=== PATIENT | female | born 1955 | race Two or more races ===

== ENCOUNTER 2022-04-19 13:02 | Outpatient (REF) | payer MEDICAID, SELFPAY ==
--- NOTE | ~2022-04-19 | XR_ITS ---
EXAMINATION: XR THORACIC SPINE XR LUMBAR SPINE CLINICAL INFORMATION: Chronic pain dorsal and lumbar spine. No known injury. COMPARISON: None TECHNIQUE: Thoracic spine is imaged in 3 views. Lumbar spine is imaged in 5 views including oblique projections. There are total of 8 views. FINDINGS: Thoracic spine: There is normal thoracic segmentation with 12 rib-bearing thoracic vertebrae of normal height and normal thoracic kyphosis. Mild levocurvature lower thoracic spine is present. There is no thoracic vertebral compression, spondylolisthesis, destructive process, or paraspinal soft tissue swelling. Multilevel degenerative disc changes are present with mild disc narrowing and mild endplate sclerosis and thoracic vertebral spurring. No erosive change. Lumbar spine: There is normal lumbar segmentation with 5 nonrib-bearing lumbar vertebrae of normal height and normal lumbar lordosis. There are multilevel degenerative disc and degenerative facet changes, greatest L3-L5. There is disc narrowing and endplate sclerosis and variable vertebral spurring. Oblique view show no spondylolysis. No erosive change. There is borderline anterior spondylolisthesis grade 0-1 at L3-L4 and borderline retrolisthesis grade 0-1 at L4-L5. The SI joints and visualized sacrum are unremarkable. XR/XR lumbar spine 4V min IMPRESSION: Thoracic: -Multilevel degenerative disc changes. -No vertebral compression, spondylolisthesis, or destructive process. Lumbar: -Multilevel degenerative disc and degenerative facet changes, greatest L3-L5. -Grade 0-1 spondylolisthesis L3-L4, grade 0-1 retrolisthesis L4-L5. No spondylolysis.
--- NOTE | ~2022-04-19 | XR_ITS ---
EXAMINATION: XR THORACIC SPINE XR LUMBAR SPINE CLINICAL INFORMATION: Chronic pain dorsal and lumbar spine. No known injury. COMPARISON: None TECHNIQUE: Thoracic spine is imaged in 3 views. Lumbar spine is imaged in 5 views including oblique projections. There are total of 8 views. FINDINGS: Thoracic spine: There is normal thoracic segmentation with 12 rib-bearing thoracic vertebrae of normal height and normal thoracic kyphosis. Mild levocurvature lower thoracic spine is present. There is no thoracic vertebral compression, spondylolisthesis, destructive process, or paraspinal soft tissue swelling. Multilevel degenerative disc changes are present with mild disc narrowing and mild endplate sclerosis and thoracic vertebral spurring. No erosive change. Lumbar spine: There is normal lumbar segmentation with 5 nonrib-bearing lumbar vertebrae of normal height and normal lumbar lordosis. There are multilevel degenerative disc and degenerative facet changes, greatest L3-L5. There is disc narrowing and endplate sclerosis and variable vertebral spurring. Oblique view show no spondylolysis. No erosive change. There is borderline anterior spondylolisthesis grade 0-1 at L3-L4 and borderline retrolisthesis grade 0-1 at L4-L5. The SI joints and visualized sacrum are unremarkable. XR/XR thoracic spine 2V IMPRESSION: Thoracic: -Multilevel degenerative disc changes. -No vertebral compression, spondylolisthesis, or destructive process. Lumbar: -Multilevel degenerative disc and degenerative facet changes, greatest L3-L5. -Grade 0-1 spondylolisthesis L3-L4, grade 0-1 retrolisthesis L4-L5. No spondylolysis.
== END 2022-04-19 13:03 | disposition home or self-care (01) ==
LOC: HO.XRAY 13:02
PROVIDERS: PCP Internal Medicine; Visit Provider Internal Medicine
DX: M54.50 Low back pain, unspecified (principal); M54.6 Pain in thoracic spine
CPT/HCPCS: 72070; 72110

== ENCOUNTER 2024-01-14 09:15 | Outpatient (REF) | payer MEDICAID, SELFPAY ==
[2024-01-14 12:01] LABS: Alanine Aminotransferase 12 U/L (0-31); Albumin Level 3.9 g/dL (3.5-5.0); Alkaline Phosphatase 84 U/L (39-117); Anion Gap 7 (12-20); Aspartate Amino Transferase 23 U/L (5-31); Bilirubin Direct 0.2 mg/dL (0.0-0.5); Bilirubin Total 0.5 mg/dL (0.0-1.0); Blood Urea Nitrogen 19 mg/dL (9-16); Calcium 10.2 mg/dL (8.4-10.2); Carbon Dioxide 29 mmol/L (22-29); Chloride 112 mmol/L (96-108); Cholesterol 154 mg/dL (<200); Estimated Glomerular Filt Rate > 60; Glucose Random 75 mg/dL (60-115); HDL Cholesterol 69 mg/dL (>40); LDL Cholesterol Calculated 75 mg/dL (<100); Potassium 4.6 mmol/L (3.3-5.1); Sodium 143 mmol/L (135-145); TSH reflex Free T4 5.75 uIU/mL (0.32-4.0); Total Protein 7.6 g/dL (6.5-8.0); Triglycerides 52 mg/dL (<150); Vitamin D 25-OH Total 13.2 ng/mL (>30)
[2024-01-14 12:14] LABS: Creatinine Urine 141.99 mg/dL; Microalbum/Creatinine Ratio Ur 5.6 ug/mg cr (<30)
[2024-01-14 12:20] LABS: Reflex LDLD? No
[2024-01-14 12:52] LABS: Free T4 (Free Thyroxine) 0.97 ng/dL (0.71-1.85)
== END 2024-01-14 09:16 | disposition home or self-care (01) ==
LOC: HO.HHCL 09:15
PROVIDERS: Visit Provider Internal Medicine
DX: E11.9 Type 2 diabetes mellitus without complications (principal); E78.2 Mixed hyperlipidemia; E03.9 Hypothyroidism, unspecified; K74.3 Primary biliary cirrhosis
CPT/HCPCS: 36415; 80048; 80061; 80076; 82043; 82306; 82570; 84439; 84443

== ENCOUNTER 2024-02-24 13:00 | Outpatient (REF) | payer MEDICAID, SELFPAY ==
[2024-02-24 15:32] LABS: INTERNATIONAL NORM RATIO 1.1 (0.9-1.1); Prothrombin Time 13.1 SEC (11.1-13.3)
[2024-02-24 15:45] LABS: Alanine Aminotransferase 14 U/L (0-31); Albumin Level 3.8 g/dL (3.5-5.0); Alkaline Phosphatase 79 U/L (39-117); Aspartate Amino Transferase 22 U/L (5-31); Bilirubin Direct 0.2 mg/dL (0.0-0.5); Bilirubin Total 0.6 mg/dL (0.0-1.0); Iron 138 mcg/dL (30-160); Percent Iron Saturation 45 % (15-50); Total Iron Binding Capacity 307 mcg/dL (228-428); Total Protein 7.4 g/dL (6.5-8.0); Unsaturated Iron Binding 169 ug/dL
[2024-02-24 15:59] LABS: Ferritin 58 ng/mL (10-250); Vitamin D 25-OH Total 22.3 ng/mL (>30)
[2024-02-24 16:05] LABS: Free T4 (Free Thyroxine) 1.18 ng/dL (0.71-1.85); T4 Thyroxine 9.1 ug/dL (4.5-12.0); TSH reflex Free T4 0.18 uIU/mL (0.32-4.0)
[2024-02-25 10:53] LABS: Triiodothyronine T3 Free 3.1 pg/mL (2.3-4.2); Triiodothyronine T3 Total 124 ng/dL (76-181)
[2024-02-25 12:43] LABS: Thyroglobulin Antibodies 1 IU/mL (< or = 1)
[2024-02-26 09:23] LABS: Mitochondrial Antibodies NEGATIVE (NEGATIVE)
[2024-02-27 05:03] LABS: Beta-Gamma Tocopherol <1.0 mg/L (<=4.3)
[2024-02-27 10:49] LABS: Anti Nuclear Antibody Pattern Nuclear, Homogeneous; Anti Nuclear Antibody Screen POSITIVE (NEGATIVE)
[2024-02-27 22:39] LABS: Vitamin A 24 mcg/dL (38-98)
[2024-02-29 13:08] LABS: Vitamin K1 380 pg/mL (130-1500)
== END 2024-02-24 13:01 | disposition home or self-care (01) ==
LOC: HO.LAB 13:00
PROVIDERS: PCP Internal Medicine; Visit Provider Internal Medicine
DX: K74.3 Primary biliary cirrhosis (principal); K75.4 Autoimmune hepatitis; E03.9 Hypothyroidism, unspecified; Q78.9 Osteochondrodysplasia, unspecified
CPT/HCPCS: 36415; 80076; 82306; 82728; 83540; 84436; 84439; 84443; 84446; 84480; 84481; 84590; 84597; 85610; 86038; 86039; 86381; 86800; 99212

== ENCOUNTER 2024-02-24 13:00 | Outpatient (AMB) | payer MEDICAID, SELFPAY ==
--- NOTE | 2024-02-24 13:27 | MHC.OFFVIS ---
Vital Signs 02/24/24 13:29 Height 5 ft 5.75 in Weight 213 lb 13.574 oz BMI 34.8 BP 136/73 Blood Pressure Location Rt brachial Position Sitting Pulse 60 Pulse Source Pulse Oximeter Intake Visit Reasons: Bilary Choleangitis Intake Note: Pt presents to the office today for biliary choleangitis. Pt states she is feeling well. She states she has gained weight within the past year and isnt sure why. She states she does have issues with constipation. 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 Pt reports getting leg swelling around 4 years ago which led to testing that established the diagnosis of PBC. Was seeing Dr Manish Barraza at [facility]. Also reports getting a biopsy. Per PCP notes: interface hepatitis 3/4 and lobular activity 2/4. However reports progression to cirrhosis in 2021. Based on bx. Current medications: - Azathioprine 50/day - Court 300 TID - Folic acid 1mg - Lactulose 10mg once a day Last EGD in Nov 13 2023 in [facility] - report reviewed - no esophageal varices, but small fundal varices in stomach without red sonja signs. having small varices. Started on carvedilol once a day. Last US also in Nov 2023 in [facility] - no changes, repeat recommended in 6 months. 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 PFSH Surgical History (Updated 02/24/24 @ 13:33 by Jennifer Marie CMA) H/O section Hx of appendectomy Social History (Updated 02/24/24 @ 13:33 by Jennifer Marie CMA) Household Members Other:: sister Housing: House Alcohol intake: current Alcohol intake frequency: a few times a month Patient Tobacco Use Status: Former Tobacco user Review of Systems Const All systems reviewed & are unremarkable except as noted in HPI and below Physical Exam Vital Signs: Last Vital Signs Pulse 60 02/24/24 13:29 BP 136/73 02/24/24 13:29 BMI result Body Mass Index 34.8 NAD Nonicteric Abd soft, nontender, non distended No asterixis Assessment & Plan Assessment & Plan (1) 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 Cont on Azathioprine [address] ALP and aminotransferases normal per most recent labs available from PCP office. Plan: - Cont Azathioprine [address] - Check ADEK - Check dexa - varices: Next EGD due 11/2024. Cont coreg - ? once daily dosing Rxed by prev rehabilitation supervisor. - HCC screening: Next US due 05/2024. - HE - has known splenorenal shunt. Cont lactulose - Follow up 4 months Orders: Orders Ferritin 02/24/24 K74.3 - Primary biliary cirrhosis Liver Panel 02/24/24 K74.3 - Primary biliary cirrhosis Mitochondrial Antibody 02/24/24 K74.3 - Primary biliary cirrhosis Prothrombin Time INR 02/24/24 K74.3 - Primary biliary cirrhosis Vitamin A 02/24/24 K74.3 - Primary biliary cirrhosis Vitamin D 25-OH Total 02/24/24 K74.3 - Primary biliary cirrhosis Vitamin E 02/24/24 K74.3 - Primary biliary cirrhosis Vitamin K1 02/24/24 K74.3 - Primary biliary cirrhosis SANA Reflex Titer and Pattern 02/24/24 K74.3 - Primary biliary cirrhosis IRON PROFILE 02/24/24 K74.3 - Primary biliary cirrhosis XR DEXA axial skeleton 02/24/24 Q78.9 - Osteochondrodysplasia, unspecified Coding Level of Care Code New Pt Level 5 (97430) Diagnoses Primary biliary cholangitis K74.3 Autoimmune hepatitis K75.4 Encounter for colorectal cancer screening Z12.11; Z12.12
[2024-02-24 13:29] VITALS: BP 136/73; PULSE 60; BMI 34.8
== END 2024-02-24 14:22 | disposition home or self-care (01) ==
LOC: HO.HGI 13:00
PROVIDERS: PCP Internal Medicine; Visit Provider Internal Medicine
DX: K74.3 Primary biliary cirrhosis (principal); K75.4 Autoimmune hepatitis; Z12.11 Encounter for screening for malignant neoplasm of colon; Z12.12 Encounter for screening for malignant neoplasm of rectum
CPT/HCPCS: 99214

== ENCOUNTER 2024-04-09 09:45 | Outpatient (REF) | payer MEDICAID, SELFPAY ==
--- NOTE | ~2024-04-09 | MM_ITS ---
EXAMINATION: BONE DENSITOMETRY CLINICAL INDICATION: Primary biliary cirrhosis. COMPARISON: This is the patient's baseline examination. TECHNIQUE: Using a [employer] DXA System (software version: 13.1) manufactured by [employer], dual-energy x-ray absorptiometry was performed of the lumbar spine and left hip. The images are of good technical quality. Summary results are attached. FINDINGS: LEFT FEMUR, NECK: BMD 0.794 g/cm2, Z-score -0.8, T-score -1.8, osteopenia. LEFT FEMUR, TOTAL: BMD 0.842 g/cm2, Z-score -0.7, T-score -1.3, osteopenia. AP SPINE L1-L3 (excluding L4): The data of L1-L4 has been changed to exclude the L4 vertebral body, because degenerative sclerosis at this level may cause overestimation of lumbar spine density. BMD 1.398 g/cm2, Z-score 2.6, T-score 1.9, normal. IDENTIFIED RISK FACTORS: Early menopause, secondary osteoporosis, glucocorticoids, height loss, low calcium intake. HISTORY OF FRACTURE: None listed. MEDICATIONS: Vitamin D. MM/XR DEXA axial skeleton IMPRESSION: 1. DIAGNOSIS: Osteopenia based on the lowest T-score value of -1.8 in the femoral neck applying World Health Organization criteria. 2. 10-YEAR FRACTURE RISK PREDICTION, FRAX: Major osteoporotic fracture (clinical spine, forearm, hip or shoulder) 8.5%. Hip fracture 1.3%. 3. Treatment Recommendations: NOF guidelines recommend consideration for treatment in postmenopausal women and men age 50 and older presenting with the following: -A hip or vertebral (clinical or morphometric) fracture. -T-score less than or equal to -2.5 at the femoral neck or spine after appropriate evaluation to exclude secondary causes. -Low bone mass at the hip or spine and a 10-year fracture probability by FRAX of greater than or equal to 3% for hip fracture or greater than or equal to 20% for major osteoporotic fracture based on the [place] adapted WHO algorithm. 4. Other Recommendations: All treatment decisions require clinical judgment and consideration of individual patient factors, including patient preferences, comorbidities, previous drug use, risk factors not captured in the FRAX model (e.g. frailty, falls, vitamin D deficiency, increased bone turnover, interval significant decline in bone density) and possible under or overestimation of fracture risk by FRAX. Additional medical evaluation for secondary cause of low bone mineral density may be appropriate. FUTURE SCAN RECOMMENDATION: People with diagnosed cases of osteoporosis or at high risk for fracture should have regular bone mineral density tests. For patients eligible for Medicare, routine testing is allowed once every 2 years. The testing frequency can be increased to one year for patients who have rapidly progressing disease, those who are receiving or discontinuing medical therapy to restore bone mass, or have additional risk factors.
== END 2024-04-09 09:46 | disposition home or self-care (01) ==
LOC: HO.MAMMO 09:45
PROVIDERS: PCP Internal Medicine; Visit Provider Internal Medicine
DX: Q78.9 Osteochondrodysplasia, unspecified (principal); K74.3 Primary biliary cirrhosis
CPT/HCPCS: 77080

== ENCOUNTER 2024-04-28 09:22 | Outpatient (REF) | payer MEDICAID, SELFPAY ==
[2024-04-30 08:56] LABS: Mumps Virus IgG Antibody >300.00 AU/mL; Rubeola IgG (Measles) >300.00 AU/mL
[2024-04-30 22:44] LABS: TS Negative Control Passed; TS Panel A 0; TS Panel B 0; TS Positive Control Passed; TSpotTB Negative (Negative)
== END 2024-04-28 09:23 | disposition home or self-care (01) ==
LOC: HO.HHCL 09:22
PROVIDERS: Visit Provider Internal Medicine
DX: Z00.00 Encounter for general adult medical examination without abnormal findings (principal); Z11.1 Encounter for screening for respiratory tuberculosis
CPT/HCPCS: 36415; 86481; 86735; 86762; 86765; 86787

== ENCOUNTER 2024-06-15 14:13 | Outpatient (AMB) | payer MEDICAID, SELFPAY ==
[2024-06-15 14:15] VITALS: BP 105/59; PULSE 66; BMI 33.7
--- NOTE | 2024-06-15 14:15 | MHC.OFFVIS ---
Vital Signs 06/15/24 14:15 Height 5 ft 5 in Weight 202 lb 13.204 oz BMI 33.7 BP 105/59 L Blood Pressure Location Lt brachial Position Sitting Pulse 66 Intake Visit Reasons: 4 month follow up AIH/PBC Intake Note: Clarita presents in the office as a 4 month follow up for AIH and PBC. CC: She has a headache - Lactulose helps with her constipation. Financing Analyst Required: Yes Allergies No Known Allergies Allergy (Verified 06/15/24 14:19) HPI Comments Details: This is a 68 y.o F with known hx of PBC who is here to establish care for AIH/PBC. 02/24/24: Pt reports getting leg swelling around 4 years ago which led to testing that established the diagnosis of PBC. Was seeing Dr Manish Barraza at [facility]. Also reports getting a biopsy. Per PCP notes: interface hepatitis 3/4 and lobular activity 2/4. However reports progression to cirrhosis in 2021. Based on bx. Current medications: - Azathioprine 50/day - [address] TID - Folic acid 1mg - Lactulose 10mg once a day Last EGD in Nov 13 2023 in [facility] - report reviewed - no esophageal varices, but small fundal varices in stomach without red sonja signs. having small varices. Started on carvedilol once a day. Last US also in Nov 2023 in [facility] - no changes, repeat recommended in 6 months. 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 06/15/24: No acute issues. No change in meds. Labs reviewed. Pt aware to reach out to her PCP for endocrine referral for osteopenia. Taking Vit D supplement. 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 Cont on Azathioprine [address] DEXA reviewed and likely has osteopenia 2/2 PBC as well as postmenopausal state. ALP and aminotransferases normal per most recent labs. Plan: - Cont Azathioprine [address] - Vit D supplement refilled - Pt also advised to add OTC calcium supplementation - varices: Next EGD due 11/2024. Cont coreg - once daily dosing Rxed by prev acquisition associate. - HCC screening: US Abd ordered - HE - has known splenorenal shunt. Cont lactulose - Due for colo - can be jeffrey with the EGD see above. - Follow up 3 months - pt to do MELD labs before next appt. Reminder set. Orders: Orders US abdomen complete Today K75.4 - Autoimmune hepatitis Complete Blood Count no Diff Today K75.4 - Autoimmune hepatitis Comprehensive Met. Panel Today K75.4 - Autoimmune hepatitis Prothrombin Time INR Today K75.4 - Autoimmune hepatitis Medications: Changed From ergocalciferol (vitamin D2) 1,250 mcg PO QWEEK To ergocalciferol (vitamin D2) 1,250 mcg PO QWEEK 90 days 13 caps 1RF Coding Level of Care Code Est Pt Level 4 (37471) Diagnoses Primary biliary cholangitis K74.3 Autoimmune hepatitis K75.4 Encounter for colorectal cancer screening Z12.11; Z12.12 Osteopenia M85.80 Hepatic osteodystrophy Q78.9
== END 2024-06-15 14:48 | disposition home or self-care (01) ==
PROVIDERS: PCP Internal Medicine; Visit Provider Internal Medicine
DX: K74.3 Primary biliary cirrhosis (principal); K75.4 Autoimmune hepatitis; Z12.11 Encounter for screening for malignant neoplasm of colon; Z12.12 Encounter for screening for malignant neoplasm of rectum; M85.80 Other specified disorders of bone density and structure, unspecified site; Q78.9 Osteochondrodysplasia, unspecified
CPT/HCPCS: 99214

== ENCOUNTER → 2024-06-15 14:13 | Outpatient (BNVA) | payer MEDICAID, SELFPAY | PROVIDERS: PCP Internal Medicine; Visit Provider Internal Medicine | DX: K74.3 Primary biliary cirrhosis (principal); K59.00 Constipation, unspecified; K75.4 Autoimmune hepatitis; M85.80 Other specified disorders of bone density and structure, unspecified site; Q78.9 Osteochondrodysplasia, unspecified; Z79.899 Other long term (current) drug therapy | CPT/HCPCS: 99212 ==

== ENCOUNTER 2024-07-28 10:04 | Outpatient (REF) | payer MEDICAID, SELFPAY ==
--- NOTE | ~2024-07-28 | XR_ITS ---
EXAMINATION: XR KNEE, LEFT CLINICAL INFORMATION: Chronic left knee pain. COMPARISON: None available. TECHNIQUE: Four views of the left knee. FINDINGS: Moderate medial compartment joint space narrowing. Small tricompartmental marginal osteophytes. No acute fracture or dislocation. No concerning lytic or blastic osseous lesion. No significant joint effusion. XR/XR knee LT 4V IMPRESSION: Moderate medial as well as mild patellofemoral and lateral compartment osteoarthritis. Electronically signed by: Freddie Colindres MD 07/28/2024 11:23 AM EDT
== END 2024-07-28 10:05 | disposition home or self-care (01) ==
LOC: HO.HHCX 10:04
PROVIDERS: Visit Provider Internal Medicine
DX: M25.562 Pain in left knee (principal); G89.29 Other chronic pain
CPT/HCPCS: 73564

== ENCOUNTER 2024-07-31 08:49 | Outpatient (REF) | payer MEDICAID, SELFPAY ==
[2024-07-31 09:34] LABS: Hematocrit 35.5 % (37.0-47.0); Hemoglobin 11.5 g/dl (12.0-16.0); Mean Corpuscular HGB Conc 32.4 g/dl (31.0-35.0); Mean Corpuscular Hemoglobin 32.6 pg (27.0-33.0); Mean Corpuscular Volume 100.6 fL (80.0-98.0); Mean Platelet Volume 9.7 fL (9.4-12.3); Platelet Count 160 X10*3/uL (160-400); Red Blood Count 3.53 X10*6/uL (4.20-5.50); White Blood Count 4.2 X10*3/uL (4.8-10.8)
[2024-07-31 09:38] LABS: Prothrombin Time 11.8 SEC (10.9-12.4)
[2024-07-31 10:12] LABS: Alanine Aminotransferase 17 U/L (0-31); Albumin Level 3.9 g/dL (3.5-5.0); Alkaline Phosphatase 75 U/L (39-117); Anion Gap 7 (12-20); Aspartate Amino Transferase 27 U/L (5-31); Bilirubin Total 0.5 mg/dL (0.0-1.0); Blood Urea Nitrogen 20 mg/dL (9-16); Calcium 9.9 mg/dL (8.4-10.2); Carbon Dioxide 28 mmol/L (22-29); Chloride 111 mmol/L (96-108); Estimated Glomerular Filt Rate > 60; Glucose Random 77 mg/dL (60-115); Potassium 4.4 mmol/L (3.3-5.1); Sodium 142 mmol/L (135-145); Total Protein 7.4 g/dL (6.5-8.0)
[2024-07-31 10:24] LABS: Free T4 (Free Thyroxine) 0.88 ng/dL (0.71-1.85)
[2024-07-31 10:29] LABS: Thyroid Stimulating Hormone 0.54 uIU/mL (0.32-4.0)
[2024-08-01 09:48] LABS: Triiodothyronine T3 Free 2.8 pg/mL (2.3-4.2); Triiodothyronine T3 Total 86 ng/dL (76-181)
== END 2024-07-31 08:50 | disposition home or self-care (01) ==
LOC: HO.LAB 08:49
PROVIDERS: PCP Internal Medicine; Visit Provider Internal Medicine
DX: E03.9 Hypothyroidism, unspecified (principal); K75.4 Autoimmune hepatitis
CPT/HCPCS: 36415; 80053; 84439; 84443; 84480; 84481; 85027; 85610

== ENCOUNTER 2024-11-09 08:04 | Outpatient (REF) | payer MEDICAID, SELFPAY ==
--- NOTE | ~2024-11-09 | US_ITS ---
CLINICAL HISTORY: K75.4 - Autoimmune hepatitis US abdomen complete Comparison: None Findings: The visualized pancreas is normal. The visualized aorta and inferior vena cava are normal caliber. Hepatic size was not measured. Coarse hepatic echotexture. Hepatic surface nodularity cannot be excluded (hepatic surface was not evaluated with a linear probe). There is no intrahepatic bile duct dilatation. The common duct is 5.3 mm in diameter. The gallbladder is normal. There is no sonographic Persaud sign. The main portal vein is antegrade. Incompletely evaluated right kidney due to overlying bowel gas. The right kidney measures at least 8.3 cm in length. Evaluated portion of right kidney is unremarkable. The left kidney is 10.8 cm in length. 12 mm simple left renal cyst. Left kidney is unremarkable. The spleen is normal and measures 8.9 cm in length No ascites. IMPRESSION: Mildly coarse hepatic echotexture may be incidental or due to underlying hepatic disease. Hepatic surface nodularity/cirrhosis cannot be excluded. This document has been electronically signed by: Renetta Lee MD on 11/09/2024 11:03:41
== END 2024-11-09 08:05 | disposition home or self-care (01) ==
LOC: HO.US 08:04
PROVIDERS: PCP Internal Medicine; Visit Provider Internal Medicine
DX: K75.4 Autoimmune hepatitis (principal)
CPT/HCPCS: 76700

== ENCOUNTER → 2024-11-09 08:06 | Outpatient (BNV) | payer MEDICAID, SELFPAY | PROVIDERS: PCP Internal Medicine; Visit Provider Radiology Diagnostic Radiology | DX: K75.4 Autoimmune hepatitis (principal) | CPT/HCPCS: 76700 ==

== ENCOUNTER 2024-11-11 07:57 | Outpatient (REF) | payer MEDICAID, SELFPAY ==
--- NOTE | ~2024-11-11 | US_ITS ---
EXAMINATION: US THYROID CLINICAL INFORMATION: Left upper lobe thyroid nodule COMPARISON: None available. TECHNIQUE: Linear transducer grayscale and color Doppler examination with attention to the region of the thyroid. FINDINGS: SIZE: Measurements of the thyroid lobes and nodules are given in sagittal, anteroposterior and transverse dimensions respectively. Right Thyroid Lobe: 3.2 x 0.9 x 1.0 cm, volume 1.5 mL. Parenchyma: The gland echotexture is heterogeneous. Thyroid vascularity is hypervascular. Left Thyroid Lobe: Not seen with certainty. However it measures 2.1 x 0.6 x 0.7 cm, volume 0.5 mL. Parenchyma: The gland echotexture is heterogeneous. Thyroid vascularity is normal. Isthmus: 0.2 cm in maximum AP dimension. Estimated total number of nodules greater than or equal to 1 cm: None. Search Marketing Analyst nodules are described as follows: NODES: No lymphadenopathy is seen in the tissue surrounding the thyroid gland. US/US thyroid IMPRESSION: Normal size right thyroid lobe with diffuse heterogeneity and increased blood flow but no nodules. The left lobe is not visualized with certainty however there is no nodule seen either. ACR TI-RADS RECOMMENDATION REFERENCE: Ultrasound-guided fine-needle aspiration, followup ultrasound, no further follow up. * TR1 (0 point) and TR2 (2 points): No FNA or follow up. * TR3 (3 points): FNA if more than or equal to 2.5 cm in maximum dimension, followup ultrasound in 1, 3 and 5 years if 1.5 to 2.4 cm in maximum dimension. * TR4 (4-6 points): FNA if more than or equal to 1.5 cm in maximum dimension, followup ultrasound in 1, 2, 3 and 5 years if 1 to 1.4 cm in maximum dimension. * TR5 (more than or equal to 7 points): FNA if more than or equal to 1 cm in maximum dimension, followup ultrasound every year for 5 years if 0.5 to 0.9 cm in maximum dimension. * TR3, TR4 or TR5 nodules that are below the size threshold for followup receive no follow up. Electronically signed by: Lawson De La Garza MD 11/16/2024 12:18 PM [facility]
== END 2024-11-11 07:58 | disposition home or self-care (01) ==
LOC: HO.US 07:57
PROVIDERS: PCP Internal Medicine; Visit Provider Internal Medicine
DX: E04.1 Nontoxic single thyroid nodule (principal)
CPT/HCPCS: 76536

== ENCOUNTER → 2024-11-11 07:59 | Outpatient (BNV) | payer MEDICAID, SELFPAY | PROVIDERS: PCP Internal Medicine; Visit Provider Radiology Diagnostic Radiology | DX: E04.1 Nontoxic single thyroid nodule (principal) | CPT/HCPCS: 76536 ==

== ENCOUNTER 2024-11-18 12:39 | Outpatient (REF) | payer MEDICAID, SELFPAY ==
[2024-11-18 14:04] LABS: Alanine Aminotransferase 20 U/L (0-31); Albumin Level 3.7 g/dL (3.5-5.0); Alkaline Phosphatase 71 U/L (39-117); Aspartate Amino Transferase 28 U/L (5-31); Bilirubin Direct 0.1 mg/dL (0.0-0.5); Bilirubin Total 0.5 mg/dL (0.0-1.0)
== END 2024-11-18 12:40 | disposition home or self-care (01) ==
LOC: HO.LAB 12:39
PROVIDERS: PCP Internal Medicine; Visit Provider Internal Medicine
DX: K74.3 Primary biliary cirrhosis (principal); R42 Dizziness and giddiness; R51.9 Headache, unspecified; M85.80 Other specified disorders of bone density and structure, unspecified site; Q78.9 Osteochondrodysplasia, unspecified; K75.4 Autoimmune hepatitis
CPT/HCPCS: 36415; 80076; 99212

== ENCOUNTER 2024-11-18 12:39 | Outpatient (AMB) | payer MEDICAID, SELFPAY ==
--- NOTE | 2024-11-18 12:41 | A.OFFVIS_ITS ---
Vital Signs 11/18/24 12:49 Height 5 ft 5 in Weight 205 lb 0.478 oz BMI 34.1 BP 123/58 L Blood Pressure Location Lt brachial Position Sitting Pulse 56 Intake Visit Reasons: 3 month follow up AIH/PBC Intake Note: Clarita presents in the office as a 3 month follow up for AIH and PBC. CC: She states that she is feeling so-so she states her liver is feeling okay but she states when she takes the lactulose her stomach gets bloated with gas and she has a hard time to have a BM. She also has headaches every day. She is also complaining of weight gain. 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 02/24/24: Pt reports getting leg swelling around 4 years ago which led to testing that established the diagnosis of PBC. Was seeing Dr Manish Barraza at [facility]. Also reports getting a biopsy. Per PCP notes: interface hepatitis 3/4 and lobular activity 2/4. However reports progression to cirrhosis in 2021. Based on bx. Current medications: - Azathioprine 50/day - [address] TID - Folic acid 1mg - Lactulose 10mg once a day Last EGD in Nov 13 2023 in [facility] - report reviewed - no esophageal varices, but small fundal varices in stomach without red sonja signs. having small varices. Started on carvedilol once a day. Last US also in Nov 2023 in [facility] - no changes, repeat recommended in 6 months. 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 06/15/24: No acute issues. No change in meds. Labs reviewed. Pt aware to reach out to her PCP for endocrine referral for osteopenia. Taking Vit D supplement. 11/18/24: Here for routine follow up. Seen with in person wrinkle chaser Kiet. Reports dizziness and headaches - has sensation of feeling forward. Lasts for a few seconds. Started almost a month ago and occuring may be once a week. Headache is diffuse and not assoc with vision changes or tinnitus. Has not been seen by PCP for this yet. Pt also had parathyroid testing in [facility] and PTH was high. Awaiting to see PCP for this. From liver standpoint, no abd pain, N,V. Ran out of her meds almost 4 days ago and needs refills. Requests to reduce lactulose dose as it causes significant bloating and cramping without any BMs. PFSH Surgical History H/O section Hx of appendectomy Social History Household Members Other:: sister Housing: House Alcohol intake: current Alcohol intake frequency: a few times a month Patient Tobacco Use Status: Former Tobacco user Review of Systems Const All systems reviewed & are unremarkable except as noted in HPI and below Physical Exam Vital Signs: Last Vital Signs Pulse 56 11/18/24 12:49 BP 123/58 L 11/18/24 12:49 BMI result Body Mass Index 34.1 Gen Appear: NAD, well nourished HEENT: No scleral icterus, no bitemporal wasting noted Abd: soft, nontender, nondistended, no shifting dullness to percussion, bowel sounds active Ext: No peripheral edema bilaterally Neuro: A/Ox3, no asterixis Results Reviewed Results Reviewed: US Abd 11/2024 Mildly coarse hepatic echotexture may be incidental or due to underlying hepatic disease. Hepatic surface nodularity/cirrhosis cannot be excluded. Assessment & Plan Assessment & Plan (1) Dizziness: Code(s): R42 - Dizziness and giddiness Category: Medical (2) Headache: Code(s): R51.9 - Headache, unspecified Category: Medical (3) Osteopenia: Code(s): M85.80 - Other specified disorders of bone density and structure, unspecified si te Category: Medical (4) Hepatic osteodystrophy: Code(s): Q78.9 - Osteochondrodysplasia, unspecified Category: Medical (5) Primary biliary cholangitis: Code(s): K74.3 - Primary biliary cirrhosis Category: Medical (6) Autoimmune hepatitis: Code(s): K75.4 - Autoimmune hepatitis Category: Medical Plan 1. New onset headache and lightheadedness Pt advised to call PCP and get evaluated. MRI brain ordered as urgent to r/o underlying mass/ cerebellar issues. 2. 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 Cont on Azathioprine [address] Refills given today. Pt also reminded to call our office at least 1 week in advance to request refill so she is not without meds. Also has cholestasis related osteopenia, however due to ? hyperparathyroidism, reviewed to discuss supplementation with PCP/dealer support technician. Plan: - Recheck liver panel today as pt without meds recently - Cont Azathioprine [address] - varices: Due for EGD but this will be booked after MRI done. Cont coreg - refilled. - HCC screening: US Abd due in 05/2025. - HE - has known splenorenal shunt. Lactulose decreased to once daily. Add rifaximin 550 BID. - Due for colo - can be jeffrey with the EGD see above. - Follow up 6 months Orders: Orders MR head/brain wo/w con Today R42 - Dizziness and giddiness, R51.9 - Headache, unspecified Liver Panel Today K74.3 - Primary biliary cirrhosis Medications: New polyethylene glycol 3350 (Miralax) 17 grams PO ONCE 238 grams 1RF rifaximin 550 mg PO BID 90 days 180 tabs 2RF Changed From folic acid 1 mg PO DAILY To folic acid 1 mg PO DAILY 90 days 90 tabs 2RF From carvedilol 6.25 mg PO BID To carvedilol 6.25 mg PO BID 90 days 180 tabs 2RF From azathioprine 50 mg PO DAILY To azathioprine 50 mg PO DAILY 90 days 90 tabs 2RF From ursodiol PO TID To ursodiol 300 mg PO TID 90 days 270 caps 2RF Coding Level of Care Code Est Pt Level 5 (70103) Complex EM visit Add On G2211 Diagnoses Dizziness R42 Headache R51.9 Osteopenia M85.80 Hepatic osteodystrophy Q78.9 Primary biliary cholangitis K74.3 Autoimmune hepatitis K75.4
[2024-11-18 12:49] VITALS: BP 123/58; PULSE 56; BMI 34.1
== END 2024-11-18 13:15 | disposition home or self-care (01) ==
PROVIDERS: PCP Internal Medicine; Visit Provider Internal Medicine
DX: K74.3 Primary biliary cirrhosis (principal); K75.4 Autoimmune hepatitis; R42 Dizziness and giddiness; R51.9 Headache, unspecified; M85.80 Other specified disorders of bone density and structure, unspecified site; Q78.9 Osteochondrodysplasia, unspecified
CPT/HCPCS: 99214

== ENCOUNTER 2024-11-19 15:09 | Outpatient (REF) | payer MEDICAID, SELFPAY ==
--- NOTE | ~2024-11-19 | MR_ITS ---
CLINICAL HISTORY: R51.9 - Headache, unspecified MR BRAIN WITH AND WITHOUT GADOLINIUM Comparison: None Findings: Restricted diffusion imaging is incomplete. The upper intracranial contents inclusive of the vertex are not included in the field of view. No suspicious signal alteration is identified on concomitant T2 and FLAIR sequences. No acute intracranial hemorrhage, extra-axial fluid collection, hydrocephalus or midline shift. Vascular flow voids are intact. Visualized orbits: No acute abnormalities. No sinus or mastoid fluid. Nonspecific mild ethmoid sinus disease, left greater than right. No focal bone lesion. IMPRESSION: 1. No acute hemorrhage or intracranial mass lesion. 2. No acute infarct or ischemia identified, within the limitations of the study. If additional images are obtained, and I am so notified, an addendum will be issued to this report. 3. Minimal burden of periventricular and subcortical white matter signal alteration. Findings are nonspecific. Differential diagnosis includes but is not limited to microangiopathic gliosis, chronic migraines, remote trauma, remote inflammatory/infectious process or demyelinating process. 4. Nonspecific mild ethmoid sinus disease, left greater than right. This document has been electronically signed by: Nanda Grewal DO on 11/19/2024 18:35:01
[2024-11-19] MEDS: gadobutroL 10 ML VIAL IVPUSH (15:50)
== END 2024-11-19 15:10 | disposition home or self-care (01) ==
LOC: HO.MRI 15:09
PROVIDERS: PCP Internal Medicine; Visit Provider Internal Medicine
DX: R51.9 Headache, unspecified (principal); R42 Dizziness and giddiness
CPT/HCPCS: 70553; A9585

== ENCOUNTER → 2024-11-19 15:18 | Outpatient (BNV) | payer MEDICAID, SELFPAY | PROVIDERS: PCP Internal Medicine; Visit Provider Radiology Diagnostic Radiology | DX: R51.9 Headache, unspecified (principal) | CPT/HCPCS: 70553 ==

== ENCOUNTER 2024-12-10 12:30 | Outpatient (REF) | payer MEDICAID, SELFPAY ==
--- OUTSIDE RECORDS SUMMARY | 2024-12-10 12:33 | XMS_ITS | Encounter Summary ---
Author Organization [employer] Address [address] [facility] [address] 7t [place] [address] Care Team Providers Care Repeater Operator Name Role Phone Susanne Portillo MD Primary Care Provider + Reason for Visit * Reason Onset Date Comments Results 11/16/2024 Encounter Details Date Type Department Care Team ([facility] Contact Info) Description 11/16/2024 Telephone [facility] MEDICINE [address] [place], [place] [phone] Susanne Portillo MD [address] [place] [address] Results Social History Tobacco Use Types Packs/Day Years Used Date Smoking Tobacco: Never Passive Smoke Exposure: Never Smokeless Tobacco: Never Alcohol Use Standard Drinks/Week Comments Never 0 (1 standard drink = 0.6 oz pur e alcohol) Depression Answer Date Recorded Patient Health Questionnaire-9 Score 12 05/15/2024 Patient Health Questionnaire-9 Score 12 05/15/2024 Last PHQ-9: Questionnaire Data Not on file 0 05/15/2024 Housing Stability Answer Date Recorded What is your housing situation today? I have ann marie cuellar 12/27/[address] you li ve. Do you have problems with any of the following? None of the above 12/27/2023 Food Insecurity Answer Date Recorded Within the past 12 months, y ou worried that your food would run out before you got money to buy more: Never True 12/27/2023 Within the past 12 months,th e food you bought just didn't last and you didn't have enough money to get more: Never True Transportation Answer Date Recorded In the past 12 months, has l ack of transportation kept you from medical appts, meetings, work or from getting things needed for daily living? Yes, it has kept me from medical appointments or getting medications. 12/27/2023 Utilities Answer Date Recorded In the past 12 months, has t he electric, gas, oil or water company threatened to shut off services in your home? No 12/27/2023 Depression Answer Date Recorded Patient Health Questionnaire-2 Score 6 05/15/2024 Comments Unknown Sex and Gender Information Value Date Recorded Sex Assigned at Female 09/03/2022 10:35 AM EDT Legal Sex Female 10:35 AM EDT Gender Identity Female 09/03/2022 10:35 AM EDT Sexual Orientation Straight 09/03/2022 10 :35 AM EDT documented as of this encounter Miscellaneous Notes * Telephone Encounter - Paz Winters [place] - 11/16/2024 4:19 PM EST Tc to pt to inform thyroid US is normal. Pt requesting med refill for Imuran 50 mg, will inform PCP. * Telephone Encounter - Paz Winters [place] - 11/16/2024 4:18 PM EST ----- Message from Nurse Liliane Gutierrez sent at 11/16/2024 3:00 PM EST ----- ----- Message ----- From: Judie Rand MD Sent: 11/16/2024 2:58 PM EST To: [facility] Red Team Nurses Please let patient know her thyroid US is normal documented in this encounter Plan of Treatment Not on file documented as of this encounter Visit Diagnoses Not on filedocumented in this encounter Additional Health Concerns Assessment Noted Time PHQ-9 Depression Total Score: 12 024 3:45 PM EDT documented as of this encounter Care Teams Repeater Operator Relationship Specialty Start Date End Date Susanne Portillo MD [address] [place] [phone] PCP - General Family Medicine 06/02/19 documented as of this encounter
--- OUTSIDE RECORDS SUMMARY | 2024-12-10 12:33 | XMS_ITS | Encounter Summary ---
Author Organization [employer] Address 75 [facility] 7t [place] [address] Care Team Providers Care Breeding Technician Name Role Phone Susanne Portillo MD Primary Care Provider + Reason for Visit * Reason Onset Date Comments Med Refill 11/12/2024 Encounter Details Date Type Department Care Team ([facility] st Contact Info) Description 11/12/2024 Refill [facility] MEDICINE [address] [place], [place] [phone] Susanne Portillo MD [address] [place] [address] Primary biliary cholangitis (CMS/HCC) Social History Tobacco Use Types Packs/Day Years [...] AM EDT documented as of this encounter Plan of Treatment Not on file documented as of this encounter Visit Diagnoses Diagnosis Primary biliary cholangitis (CMS/HCC) documented in this encounter Additional Health Concerns Assessment Noted Time PHQ-9 Depression Total Score: 12 024 3:45 PM EDT documented as of this encounter Care Teams Breeding Technician Relationship Specialty Start Date End Date Susanne Portillo MD [address] [place] [phone] PCP - General Family Medicine 06/02/19 documented as of this encounter
--- OUTSIDE RECORDS SUMMARY | 2024-12-10 12:33 | XMS_ITS | Encounter Summary ---
Author Organization [employer] Address [address] [facility] [address] 7[address] [place] [address] Care Team Providers Care Dumper Name Role Phone Susanne Portillo MD Primary Care Provider + Encounter Details Date Type Department Care Team (Late st Contact Info) Description 11/18/2024 Orders Only GENERIC EXTERNAL DATA DEPARTMENT Provider, Generic External Data Social History Tobacco Use Types Packs/Day Years [...] on file documented as of this encounter Procedures Procedure Name Priority Date/Time Associated Diagnosis Comments HEPATIC FUNCTION PANEL Routine 11/18/2024 1:32 PM EST documented in this encounter Results * Hepatic Function Panel (11/18/2024 1:32 PM EST) Bilirubin, Total 0.5 0.0 - 1.0 mg/dL [facility] Bilirubin, Direct 0.1 0.0 - 0.5 mg/dL [facility] Aspartate Amino Transferase 28 5 - 31 U/L [facility] Alanine Aminotransferase 20 0 - 31 U/L [facility] Total Protein 7.0 6.5 - 8.0 g/dL [facility] Albumin Level 3.7 3.5 - 5.0 g/dL [facility] Alkaline Phosphatase 71 39 - 117 U/L [facility] 11/18/2024 1:32 PM EST 11/18/2024 1:32 PM EST us Generic External Data Provider LAB BLOOD ORDERAB LES Final Result [facility] [address] [place] [address] [phone] documented in this encounter Visit Diagnoses Not on filedocumented in this encounter Additional Health Concerns Assessment Noted Time PHQ-9 Depression Total Score: 12 024 3:45 PM EDT documented as of this encounter Care Teams Dumper Relationship Specialty Start Date End Date Susanne Portillo MD [address] [place] [phone] PCP - General Family Medicine 06/02/19 documented as of this encounter
--- OUTSIDE RECORDS SUMMARY | 2024-12-10 12:33 | XMS_ITS | Encounter Summary ---
Author Organization [employer] Address 75 [facility] 7t [place] [address] Care Team Providers Care Dietetic Assistant Name Role Phone Susanne Portillo MD Primary Care Provider + Reason for Visit * Reason Comments Med Refill Encounter Details Date Type Department Care Team ([facility] st Contact Info) Description 04/09/2024 Refill [facility] MEDICINE [address] [place], [place] [phone] Susanne Portillo MD [address] [place], [place] [phone] Type 2 diabetes mellitus without complication, without long-term current use of insulin ([facility]) Social History Tobacco Use Types Packs/Day Years Used Date Smoking Tobacco: Never Smokeless Tobacco: Never Alcohol Use Standard Drinks/Week Comments Never 0 (1 standard drink = 0.6 oz pur e alcohol) Depression Answer Date Recorded Patient Health Questionnaire-9 Score 2 12/27/2023 Patient Health Questionnaire-9 Score 2 12/27/2023 Last PHQ-9: Questionnaire Data Not on file 0 12/27/2023 Housing Stability Answer Date Recorded What is [...] Answer Date Recorded Patient Health Questionnaire-2 Score 2 12/27/2023 Comments Unknown Sex and Gender Information Value Date Recorded Sex Assigned at Female 09/03/2022 10:35 AM EDT Legal Sex Female 10:35 AM EDT Gender Identity Female 09/03/2022 10:35 AM EDT Sexual Orientation Straight 09/03/2022 10 :35 AM EDT documented as of this encounter Plan of Treatment Not on file documented as of this encounter Visit Diagnoses Diagnosis Type 2 diabetes mellitus without complication, without long-term current use of insulin ([facility]) documented in this encounter Additional Health Concerns Assessment Noted Time PHQ-9 Depression Total Score: 2 12/27/19 24 12:05 PM EST documented as of this encounter Care Teams Dietetic Assistant Relationship Specialty Start Date End Date Susanne Portillo MD [address] [place] [phone] PCP - General Family Medicine 06/02/19 documented as of this encounter
--- OUTSIDE RECORDS SUMMARY | 2024-12-10 12:33 | XMS_ITS | Encounter Summary ---
Author Organization [employer] Address 75 [facility] 7t [place] [address] Care Team Providers Care Fluid Power Mechanic Name Role Phone Susanne Portillo MD Primary Care Provider + Reason for Visit * Reason Onset Date Comments Stable Lab Letter 11/17/2024 Encounter Details Date Type Department Care Team ([facility] st Contact Info) Description 11/17/2024 Telephone [facility] MEDICINE [address] [place], [place] [phone] Susanne Portillo MD [address] [place] [address] Stable Lab Letter Social History Tobacco Use Types Packs/Day Years [...] encounter Miscellaneous Notes * Telephone Encounter - Valerie Salmeron - 11/17/2024 8:16 AM EST Mailed out stable imaging letter to pt. documented in this encounter Plan of Treatment Not on file documented as of this encounter Visit Diagnoses Not on filedocumented in this encounter Additional Health Concerns Assessment Noted Time PHQ-9 Depression Total Score: 12 024 3:45 PM EDT documented as of this encounter Care Teams Fluid Power Mechanic Relationship Specialty Start Date End Date Susanne Portillo MD [address] [place] [phone] PCP - General Family Medicine 06/02/19 documented as of this encounter
--- OUTSIDE RECORDS SUMMARY | 2024-12-10 12:33 | XMS_ITS | Encounter Summary ---
Author Organization [employer] Address 75 [facility] 7t [place] [address] Care Team Providers Care Highway Maintainer Name Role Phone Susanne Portillo MD Primary Care Provider + Reason for Visit * Reason Comments Pre-visit Planning (Unable to reach for PVP screening or LVM) Encounter Details Date Type Department Care Team ([facility] st Contact Info) Description 11/25/2024 Patient Outreach [facility] MEDICINE [address] [place], [place] [phone] Susanne Portillo MD 230 [place] [address] Pre-visit Planning ((Unable to reach for PVP screening or LVM)) Social History Tobacco Use Types Packs/Day Years [...] AM EDT documented as of this encounter Progress Notes * Elana Rodriguez - 11/25/2024 12:03 PM EST CC Elana placed outbound call to patient to complete pre-visit planning. No answer at this time. Patient name and were not confirmed. CC unable to leave a voice message. documented in this encounter Plan of Treatment Not on file documented as of this encounter Visit Diagnoses Not on filedocumented in this encounter Additional Health Concerns Assessment Noted Time PHQ-9 Depression Total Score: 12 024 3:45 PM EDT documented as of this encounter Care Teams Highway Maintainer Relationship Specialty Start Date End Date Susanne Portillo MD [address] [place] [phone] PCP - General Family Medicine 06/02/19 documented as of this encounter
--- OUTSIDE RECORDS SUMMARY | 2024-12-10 12:33 | XMS_ITS | Encounter Summary ---
Author Organization [employer] Address 75 [facility] 7t [place] [address] Care Team Providers Care Resident Care Aide Name Role Phone Susanne Portillo MD Primary Care Provider + Reason for Visit * Reason Onset Date Comments Med Refill 04/09/2024 Encounter Details Date Type Department Care Team ([facility] st Contact Info) Description 04/09/2024 Telephone [facility] MEDICINE [address] [place], [place] [phone] Susanne Portillo MD [address] [place], [place] [phone] Med Refill Social History Tobacco Use Types Packs/Day Years [...] encounter Miscellaneous Notes * Telephone Encounter - Agustina Dey LPN - 04/09/2024 10:57 AM EDT Medication was sent to [facility] #[id number] on 01/21/24 #12 with 1 refill. * Telephone Encounter - Verona Rodriguez - 04/09/2024 10:55 AM EDT TC from pt requesting medication refill. Medications needing refill : ergocalciferol (Vitamin D2) 1.25 MG (28373 UT) capsule To be sent to: [facility] #[id number] [place] [id number] [facility] documented in this encounter Plan of Treatment Not on file documented as of this encounter Visit Diagnoses Not on filedocumented in this encounter Additional Health Concerns Assessment Noted Time PHQ-9 Depression Total Score: 2 12/27/19 24 12:05 PM EST documented as of this encounter Care Teams Resident Care Aide Relationship Specialty Start Date End Date Susanne Portillo MD [address] [place] [phone] PCP - General Family Medicine 06/02/19 documented as of this encounter
--- OUTSIDE RECORDS SUMMARY | 2024-12-10 12:33 | XMS_ITS | Encounter Summary ---
Author Organization [employer] Address [address] [facility] [address] 7t [place] [address] Care Team Providers Care Environmental Engineering Intern Name Role Phone Susanne Portillo MD Primary Care Provider + Encounter Details Date Type Department Care Team (Late st Contact Info) Description 11/19/2024 Orders Only [facility] External Provider, [facility] Social History Tobacco Use Types Packs/Day Years [...] the past 12 months, has t he [employer], [employer], oil or water [employer] threatened to shut off services in your [...] Procedure Name Priority Date/Time Associated Diagnosis Comments MR BRAIN W AND WO CONTRAST Routine 11/19/2024 6:35 PM EST documented in this encounter Results * Mr Brain w/ and w/o Contrast (11/19/2024 6:35 PM EST) Anatomical Region Laterality Modality Brain Magnetic Resonan ce 11/19/2024 6:35 PM EST Narrative 11/19/2024 6:37 PM EST ? [facility] ?[address] ?[place] [address] ? Magnetic Resonance Report ? Signed ? Patient: Clarita Forde ?MR ?? #: [id number] ? : 1955 ?Acct:[id number] ? Age/Sex: 69 / F ?ADM Date: 11/19/24 ? Loc: HO.MRI ? Attending Dr: Edyta Rueda MD ? Ordering Physician: Edyta Rueda MD ?? Date of Service: 11/19/24 ?? Procedure(s): MR head/brain wo/w con ?? Accession Number(s): [id number] ? cc: Susanne Portillo MD; Edyta Rueda MD ? CLINICAL HISTORY: R51.9 - Headache, unspecified ? MR BRAIN WITH AND WITHOUT GADOLINIUM ? Comparison: None ? Findings: ?? Restricted diffusion imaging is incomplete. The upper intracranial ?? contents inclusive of the vertex are not included in the field of view. No ?? suspicious signal alteration is identified on concomitant T2 and FLAIR ?? sequences. ?? No acute intracranial hemorrhage, extra-axial fluid collection, ?? hydrocephalus or midline shift. ?? Vascular flow voids are intact. ? Visualized orbits: No acute abnormalities. ?? No sinus or mastoid fluid. Nonspecific mild ethmoid sinus disease, left ?? greater than right. ?? No focal bone lesion. ? IMPRESSION: ?? 1. No acute hemorrhage or intracranial mass lesion. ?? 2. No acute infarct or ischemia identified, within the limitations of the ?? study. If additional images are obtained, and I am so notified, an ?? addendum will be issued to this report. ?? 3. Minimal burden of periventricular and subcortical white matter signal ?? alteration. Findings are nonspecific. Differential diagnosis includes but ?? is not limited to microangiopathic gliosis, chronic migraines, remote ?? trauma, remote inflammatory/infectious process or demyelinating process. ?? 4. Nonspecific mild ethmoid sinus disease, left greater than right. ? This document has been electronically signed by: Nanda Grewal, DO on ?? 11/19/2024 18:35:01 ? Dictated By: ?Nanda Grewal MD ? Signed By: ?<Electronically signed by Nanda Grewal MD in OV> ?11/19/24 1836 ? DD/ 1835 ? TD/TT: 11/19/24 1835 ? Diesel Service Apprentice: ? Procedure Note Donfransiscoter, Image - 11/19/2024 [place] [address] Magnetic Resonance Report Signed Patient: Clarita Forde MMR #: [id number] : 6Acct:[id number] Age/Sex: 69 / FADM Date: 11/19/24 Loc: HO.MRI Attending Dr: Edyta Rueda MD Ordering Physician: Edyta Rueda MD Date of Service: 11/19/24 Procedure(s): MR head/brain wo/w con Accession Number(s): [id number] cc: Susanne Portillo MD; Edyta Rueda MD CLINICAL HISTORY: R51.9 - Headache, unspecified MR BRAIN WITH AND WITHOUT GADOLINIUM Comparison: None Findings: Restricted diffusion imaging is incomplete. The upper intracranial contents inclusive of the vertex are not included in the field of view. No suspicious signal alteration is identified on concomitant T2 and FLAIR sequences. No acute intracranial hemorrhage, extra-axial fluid collection, hydrocephalus or midline shift. Vascular flow voids are intact. Visualized orbits: No acute abnormalities. No sinus or mastoid fluid. Nonspecific mild ethmoid sinus disease, left greater than right. No focal bone lesion. IMPRESSION: 1. No acute hemorrhage or intracranial mass lesion. 2. No acute infarct or ischemia identified, within the limitations of the study. If additional images are obtained, and I am so notified, an addendum will be issued to this report. 3. Minimal burden of periventricular and subcortical white matter signal alteration. Findings are nonspecific. Differential diagnosis includes but is not limited to microangiopathic gliosis, chronic migraines, remote trauma, remote inflammatory/infectious process or demyelinating process. 4. Nonspecific mild ethmoid sinus disease, left greater than right. This document has been electronically signed by: Nanda Grewal DO on 11/19/2024 18:35:01 Dictated By: Nanda Grewal MD Signed By: <Electronically signed by Nanda Grewal MD in OV> 11/19/241835 DD/ 34 TD/TT: 11/19/241834 Diesel Service Apprentice: [facility] External Provider IMG MRI PROCEDURES Final Result documented in this encounter Visit Diagnoses Not on filedocumented in this encounter Additional Health Concerns Assessment Noted Time PHQ-9 Depression Total Score: 12 024 3:45 PM EDT documented as of this encounter Care Teams Environmental Engineering Intern Relationship Specialty Start Date End Date Susanne Portillo MD [address] [place] [phone] PCP - General Family Medicine 06/02/19 documented as of this encounter
--- OUTSIDE RECORDS SUMMARY | 2024-12-10 12:33 | XMS_ITS | Encounter Summary ---
Author Organization [employer] Address [address] [facility] [address] 7t [place] [address] Care Team Providers Care Extractor And Wringer Operator Name Role Phone Susanne Portillo MD Primary Care Provider + Encounter Details Date Type Department Care Team (Latest Contact Info) Description 12/08/2024 Travel Social History Tobacco Use Types Packs/Day Years [...] documented as of this encounter Care Teams Extractor And Wringer Operator Relationship Specialty Start Date End Date Susanne Portillo MD [address] [place] [address] PCP - General Family Medicine 06/02/19 documented as of this encounter
--- OUTSIDE RECORDS SUMMARY | 2024-12-10 12:33 | XMS_ITS | Encounter Summary ---
Author Organization [employer] Address [address] [facility] [address] 7[address] [place] [address] Care Team Providers Care Setter Automatic Spinning Lathe Name Role Phone Susanne Portillo MD Primary Care Provider + Reason for Visit * Reason Onset Date Comments Chart Prep 12/08/2024 Encounter Details Date Type Department Care Team ([facility] st Contact Info) Description 12/08/2024 Telephone [facility] MEDICINE 230 [place], [place] [phone] Stacey Ochoa MA Chart Prep Social History Tobacco Use Types Packs/Day Years [...] encounter Miscellaneous Notes * Telephone Encounter - Stacey Ochoa MA - 12/08/2024 8:43 AM EST Chart Prep Labs: done Images: not done Vaccines due: yes Referrals: Booked appts for gastro on 05/17/2025 , had an appt booked for podiatry on 07/21/2024. Screenings: colonoscopy , mammogram , Foot Exam Overdue care gaps: A1C, Glucose, PHQ-9, ANDREINA-7 documented in this encounter Plan of Treatment Not on file documented as of this encounter Visit Diagnoses Not on filedocumented in this encounter Additional Health Concerns Assessment Noted Time PHQ-9 Depression Total Score: 12 024 3:45 PM EDT documented as of this encounter Care Teams Setter Automatic Spinning Lathe Relationship Specialty Start Date End Date Susanne Portillo MD [address] [place] [phone] PCP - General Family Medicine 06/02/19 documented as of this encounter
--- OUTSIDE RECORDS SUMMARY | 2024-12-10 12:33 | XMS_ITS | Encounter Summary ---
Author Organization [employer] Address 75 [facility] 7t [place] [address] Care Team Providers Care Copy Center Specialist Name Role Phone Susanne Portillo MD Primary Care Provider + Reason for Visit * Reason Onset Date Comments Med Refill 07/21/2024 Encounter Details Date Type Department Care Team ([facility] st Contact Info) Description 07/21/2024 Refill [facility] MEDICINE [address] [place], [place] [phone] Susanne Portillo MD [address] [place] [address] Social History Tobacco Use Types Packs/Day Years [...] documented as of this encounter Care Teams Copy Center Specialist Relationship Specialty Start Date End Date Susanne Portillo MD [address] [place] [address] PCP - General Family Medicine 06/02/19 documented as of this encounter
--- OUTSIDE RECORDS SUMMARY | 2024-12-10 12:33 | XMS_ITS | Encounter Summary ---
Author Organization [employer] Address [address] [place] [address] Care Team Providers Care Furniture Polisher Name Role Phone Susanne Portillo MD Primary Care Provider + Encounter Details Date Type Department Care Team ([facility] st Contact Info) Description 05/04/2024 Telephone [facility] [address] [place] [address] Susanne Portillo MD [address] [place], [place] [phone] Social History Tobacco Use Types Packs/Day Years [...] encounter Miscellaneous Notes * Telephone Encounter - Verona Rodriguez - 05/04/2024 10:46 AM EDT Tc from with ab requesting a call back regarding a cpap script they received. States needs chart note and to why pt had to get sleep studies done. Please call phone # [phone] for clarification. documented in this encounter Plan of Treatment Not on file documented as of this encounter Visit Diagnoses Not on filedocumented in this encounter Additional Health Concerns Assessment Noted Time PHQ-9 Depression Total Score: 2 12/27/19 24 12:05 PM EST documented as of this encounter Care Teams Furniture Polisher Relationship Specialty Start Date End Date Susanne Portillo MD [address] [place] [id number] PCP - General Family Medicine 06/02/19 documented as of this encounter
--- OUTSIDE RECORDS SUMMARY | 2024-12-10 12:33 | XMS_ITS | Clinical Summary ---
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 ursodiol (Actigall) 300 MG capsuleIndicat ions:Primary biliary cholangitis (CMS/HCC) Take 1 capsule (300 mg) by mouth 3 times daily. 270 capsule 3 12/27/19 24 025 Active carvedilol (Coreg) 6.25 MG tablet Take 1 tablet (6.25 mg) by mouth with breakfast and with evening meal. 180 tablet 3 12/27/19 24 025 Active FLUoxetine (PROzac) 20 MG capsule Take 1 capsule (20 mg) by mouth in the morning. 90 capsule 3 12/27/19 24 025 Active folic acid (Folvite) 1 MG tablet Take 1 tablet (1,000 mcg) by mouth in the morning. 90 tablet 3 12/27/19 24 025 Active atorvastatin (Lipitor) 20 MG tablet Take 1 tablet (20 mg) by mouth in the morning. 90 tablet 3 12/27/19 24 025 Active glucose blood test strip Use as instructed 100 each 12 01/24/20 Active Lancets Misc. kit 1 each in the morning. 50 kit 11 01/24/20 24 025 Active FreeStyle lancets USE ONE DIRECTED TO CHECK BLOOD SUGAR IN THE MORNING 01/24/20 Active Calcium Carb-Cholecalc iferol (Calcium 600+D3) 600-10 MG-MCG tablet Take 1 tablet by mouth Once per day. 90 tablet 3 06/12/20 24 025 Active metFORMIN (Glucophage) 850 MG tabletIndicati ons:Type 2 diabetes mellitus without complication, without long-term current use of insulin (CMS/HCC) TAKE 1 TABLET BY MOUTH TWICE DAILY WITH THE MORNING AND EVENING MEAL 180 tablet 3 06/12/20 24 Active azaTHIOprine (Imuran) 50 MG tabletIndicati ons:Primary biliary cholangitis (CMS/HCC) TAKE 1 TABLET BY MOUTH EVERY DAY 90 tablet 10/05/20 24 Active levothyroxine (Synthroid, Levoxyl) 100 MCG tablet TAKE 1 TABLET(100 MCG) BY MOUTH BEFORE BREAKFAST 90 tablet 1 10/27/20 24 Active lactulose (Chronulac) 10 GM/15ML solution Take 22.5 mL (15 g) by mouth Once per day. 2024 mL 3 11/09/19 25 026 Active rifAXIMin (Xifaxan) 550 MG tablet Take 550 mg by mouth 2 times daily. Active Blood Glucose Monitoring Suppl (FreeStyle Lite) w/Device kit 1 each Once per day. 1 kit 12/08/19 25 026 Active Diclofenac Sodium 1 % gel Apply 1 inch topically if needed in the morning and at bedtime (pain). 60 g 1 12/08/19 25 025 Active Blood Glucose Monitoring Suppl (FreeStyle Lite) w/Device kit 1 each in the morning. 1 kit 01/24/20 24 025 Discontinued(Re order (will not trigger notification to Pharmacy)) erythromycin (Romycin) 5 MG/GM ophthalmic ointmentIndica tions:Conjunct ival Infection Apply Amount per Dose: 0.25 inch (~0.5 cm) per dose. TID for 1 week. 15 g 10/21/20 24 025 Discontinued(Th erapy completed) tobramycin-dex AMETHasone (TobraDex) ophthalmic suspension Administer 1 drop into the right eye 4 times daily. Shake bottle before using. 5 mL 10/22/20 24 025 Discontinued(Th erapy completed) Active Problems Problem Noted Date Diagnosed Date Primary osteoarthritis of both knees 12/08/2024 Assessment & Plan (12/08/2024 1:17 PM EST): Refer to PT, take Tylenol PRN and gave her information to come to acupuncture clinic. Chronic pain of left knee 07/21/2024 Assessment & Plan (07/21/2024 1:47 PM EDT): Acetaminophen PRN Elevate knee apply ice and rest Pain in both feet 07/21/2024 Thyroid nodule 07/21/2024 Recurrent major depressive disorder 05/26/2024 ISABEL (obstructive sleep apnea) 04/26/2024 Overview (04/26/2024): Sleep 04/01/24 [facility] htal. Auto CPAP 8-20 cm H2O Assessment & Plan (12/08/2024 2:45 PM EST): Pt is not tolerating CPAP properly with too much pressure on her face and ? Air blowing out of the mask (air leak?). I spoke with Josefina from [facility] ([place] Office [phone]) who will send Resp Therapist to fu with patient. They may need to monitor O2 overnight and CPAP usage, re evaluate face mask/hose. If she continues w same complaints despite corrective measures, I will consider CPAP at 10 cm instead of auto CPAP to see if she can tolerate it better. Will fu in 1mo, patient will reach out to us if she hasn't been contacted. Daytime somnolence 03/12/2024 Assessment & Plan (03/12/2024 1:35 PM EDT): R/o sleep apnea, order sleep study Chloasma 03/12/2024 Assessment & Plan (03/12/2024 1:35 PM EDT): Advised to use spf daily Will check if pt can tolerate hydroquinone due to LFT's Hypersomnia 03/12/2024 Vitamin D deficiency 01/24/2024 Assessment & Plan (01/24/2024 12:21 PM EDT): Started on Vit D already x 6 m Episodic tension-type headache, not intractable 01/24/2024 Assessment & Plan (01/24/2024 12:21 PM EDT): R/o hypo/hyperglycemia vs ISABEL Counseled re more frequent low calorie/carb meals. Encouraged physical activity as tolerated. FU w/ labs and consider sleep study next month if sx persistent. Exertional dyspnea 01/24/2024 Assessment & Plan (03/12/2024 1:35 PM EDT): R/o asthma. Echo and stress echo are wnl I advised pt to hold on ambulation for 2 wks then restart, continue strengthening training for now Consider cardiology referral after test results Assessment & Plan (01/24/2024 12:22 PM EDT): Could be related to wt gain, r/o asthma Order methacholine test and TSH FU w me with results Obesity (BMI 35.0-39.9 without comorbidity) 12/06 Assessment & Plan (12/27/2023 3:13 PM EST): Discussed re weight reduction options including exercise, life style modifications, diet, referral to critical care specialist. Discussed re lower calorie intake, increase dietary fiber Hyperlipidemia 06/07/2023 Assessment & Plan (01/24/2024 12:20 PM EDT): LDL is at goal, continue Crestor, Recommended moderate amount of exercise and increase consumption of fruit, vegetables, fish and high fiber foods. Should decrease consumption of highly saturated fats or trans fats. Fu LFT's in 6 m Assessment & Plan (12/27/2023 12:46 PM EST): Will cont rosuvastatin 10mg for now -check lipids -f/u next mos Frequent headaches 06/07/2023 Assessment & Plan (03/12/2024 1:35 PM EDT): R/o sleep apnea Chronic thoracic back pain 06/07/2023 Acquired hypothyroidism 06/07/2023 Assessment & Plan (12/08/2024 1:15 PM EST): TSH is at goal, continue Levothyroxine 100 mcg per day. Assessment & Plan (06/12/2024 12:19 PM EDT): Will repeat TFT, previous was slightly abnormal. Will call back prn to adjust Levothyroxine dose. 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 Assessment & Plan (12/08/2024 1:16 PM EST): Followed by GI. Continue Imuran + Ursodiol and avoid constipation. LFTs are normal and stable. Assessment & Plan (12/27/2023 3:20 PM EST): Last LFTs nml, Has liver fibrosis G2/4 (Bx on 2019, [facility]) -cont ursodiol TID + lactulose + Imuran 50mg/d -cont carvedilol 6.25 bid for portal gastropathy bleeding prophylaxis and portal HTN -Refer to w/ GI -f/u w/ me next mos Type 2 diabetes mellitus without complication Assessment & Plan (12/08/2024 1:15 PM EST): Controlled. A1c is at goal. Continue on Metformin once a day. Counseled re more frequent low calorie/carb meals. Encouraged physical activity as tolerated. FU in 3-4 months. Assessment & Plan (06/12/2024 12:18 PM EDT): Controlled. A1c is at goal. Continue on Metformin. Counseled re more frequent low calorie/carb meals. Check fgstk once daily Encouraged physical activity as tolerated. FU in 3 months. Assessment & Plan (03/12/2024 1:35 PM EDT): Controlled. A1c is at goal. Continue on metformin Counseled re more frequent low calorie/carb meals. Check fgstk daily Encouraged physical activity as tolerated. FU in 3 months. Assessment & Plan (01/24/2024 12:20 PM EDT): Controlled. A1c is at goal. Continue on Metformin Counseled re more frequent low calorie/carb meals. Check fgstk daily, I will prescribe glucometer to take fingersticks daily and PRN Sx Encouraged physical activity as tolerated. FU in 3 months. Assessment & Plan (12/27/2023 3:20 PM EST): Controlled. A1c is at goal. -Continue on metformin 850mg bid -Counseled re more frequent low calorie/carb meals. -Check fgstk 1x/ daily. Refr to psychopaedic nurse. -Encouraged physical activity as tolerated. -FU in 1 months. Encounters * This document contains information received from the source organization and may not represent a complete record from that organization. Date Type Department Care Team Description 12/08/2024 11:00 AM EST Office Visit [address] [address] Viki Alfonso MD Chronic low back pain without sciatica, unspecified back pain laterality (Primary Dx); Stress reaction 12/08/2024 10:00 AM EST Office Visit [address] [address] Susanne Portillo MD Type 2 diabetes mellitus without complication, without long-term current use of insulin (CMS/HCC) (Primary Dx); Primary osteoarthritis of both knees; ISABEL (obstructive sleep apnea); Acquired hypothyroidism; Primary biliary cholangitis (CMS/HCC) 12/08/2024 Travel 12/08/2024 [address]phone [address] [place] [address] Stacey Ochoa MA Chart Prep 11/25/2024 Patient Outreach [facility] [address] [place] [address] Susanne Portillo MD Pre-visit Planning ((Unable to reach for PVP screening or LVM)) 11/19/2024 Orders Only [facility] External Provider, [facility] 11/18/2024 Orders Only GENERIC EXTERNAL DATA DEPARTMENT Provider, Generic External Data 11/17/2024 Telephone [facility] [address] [place] [address] Susanne Portillo MD Stable Lab Letter 11/16/2024 Telephone [facility] [address] [place] [phone] Susanne Portillo MD Med Refill 11/16/2024 Telephone [facility] [address] [place] [phone] Susanne Portillo MD Results 11/14/2024 Refill [facility] [address] [place] [phone] Susanne Portillo MD 11/12/2024 Refill [facility] [address] [place] [address] Susanne Portillo MD Primary biliary cholangitis ([facility]) 11/09/2024 Refill [facility] [address] [place] [address] Susanne Portillo MD Type 2 diabetes mellitus without complication, without long-term current use of insulin ([facility]) 11/09/2024 Orders Only [facility] External Provider, [facility] 11/02/2024 1:00 PM EST Office Visit [facility] [address] [place] [address] Dena Ellison, OD Corneal abrasion, right, sequela (Primary Dx) 11/02/2024 Travel 10/29/2024 Telephone [facility] [address] [place] [address] Susanne Portillo MD December10/27/2024 Refill [facility] [address] [place] [address] Susanne Portillo MD 10/26/2024 1:00 PM EST Office Visit [facility] [address] [place] [address] Merritt Northn, OD Iritis of right eye (Primary Dx); Corneal epithelial defect 10/26/2024 Travel 10/22/2024 2:00 PM EST Office Visit [facility] [address] [place] [address] CanMerrittn, OD Corneal epithelial defect (Primary Dx); Iritis of right eye 10/22/2024 Travel 10/21/2024 6:00 PM EST Office Visit [facility] [address] [place] [address] Мария Salas, 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 Acute conjunctivitis of right eye, unspecified acute conjunctivitis type (Primary Dx) 10/21/2024 Travel 10/21/2024 Telephone [facility] [address] [place] [address] Susanne Portillo MD Nurse Triage 10/04/2024 Refill [facility] [address] [place], [place] [phone] Susanne Portillo MD Primary biliary cholangitis (CMS/HCC) from Last 3 Months Immunizations Name Administration Dates Next Due Influenza injectable quadrivalent preservative f ree 12/03/2019 Social History Tobacco Use Types Packs/Day Years Used Date Smoking Tobacco: Never Passive Smoke Exposure: Never Smokeless Tobacco: Never Tobacco Cessation:Counseling Given: Not Answered Alcohol Use Standard Drinks/Week Comments Never 0 [...] Orientation Straight 09/03/2022 10 :35 AM EDT Last Filed Vital Signs Vital Sign Reading Time Taken Comments Blood Pressure 136/76 12/08/2024 9:50 AM EST Pulse 60 12/08/2024 9:50 AM EST Temperature 36.4 ??C (97.5 ??F) 12/08/2024 9:50 AM ES T Respiratory Rate 20 12/08/2024 9:50 AM EST Oxygen Saturation 98% 07/21/2024 1:17 PM EDT Inhaled Oxygen Concentration - - Weight 94 kg (207 lb 4 oz) 12/08/2024 9:50 AM ES T Height 170.2 cm (5' 7 ) 12/08/2024 9:50 AM EST Body Mass Index 32.46 12/08/2024 9:50 AM EST Plan of Treatment Health Maintenance Due Date Last Done Comments CT Colonography 1955 Colonoscopy 1955 Colorectal Cancer Screening 1955 FIT DNA/Cologuard 1955 FIT 1955 FOBT 1955 Sigmoidoscopy 1955 COVID-19 Vaccine (#1) 1961 Diabetes: Foot Exam 1966 Hepatitis C Screening 1974 DTaP/Tdap/Td Vaccines (1 - Tdap) 1975 Hepatitis A Vaccines (1 of 2 - Risk 2-dose series) 1975 Pneumococcal Vaccine: 50+ Years (1 of 2 - PCV) 1975 Zoster Vaccines (1 of 2) 1975 Hepatitis B Vaccines (1 of 3 - Risk 3-dose series) 2016 RSV Patients and Patients Aged 60 years or older (1 - Risk 60-74 years 1-dose series) 2016 Mammogram 06/05/2021 06/05/2019 Influenza Vaccine (#1) 2024 12/03/2019 Depression Monitoring (PHQ-9) 11/15/2024 05/15/2024, 05/15/2024 SDOH Screening 12/27/2024 12/27/2023 Diabetes: Urine Protein Screening 01/13/2025 01/14/2024 Lipid Panel 01/13/2025 01/14/2024, 04/11/2022 Alcohol/Substance Use Screening 01/23/2025 01/24/2024 Depression Screening 05/15/2025 05/15/2024, 05/15/20 Diabetes: Hemoglobin A1C 06/07/2025 025, 12/27/2023, 04/11/2022 Tobacco Screening 12/08/2025 12/08/2024 Eye Exam 01/29/2026 01/30/2024, 01/03, 01/30/2024, Additional history exists HIB Vaccines Aged Out No longer eligi ble based on patient's age to complete this topic HPV Vaccines Aged Out No longer eligi ble based on patient's age to complete this topic IPV Vaccines Aged Out No longer eligi ble based on patient's age to complete this topic Meningococcal Vaccine Aged Out No petra alfredo eligible based on patient's age to complete this topic RSV under 20 months Aged Out No longe r eligible based on patient's age to complete this topic Rotavirus Vaccines Aged Out No longer eligible based on patient's age to complete this topic Procedures Procedure Name Priority Date/Time Associated Diagnosis Comments POCT GLYCATED HEMOGLOBIN, TOTAL Routine 12/08/2024 10:02 AM EST Type 2 diabetes mellitus without complication, without long-term current use of insulin ([facility]) POCT GLUCOSE Routine 12/08/2024 10:02 AM EST Type 2 diabetes mellitus without complication, without long-term current use of insulin ([facility]) MR BRAIN W AND WO CONTRAST Routine 11/19/2024 6:35 PM EST HEPATIC FUNCTION PANEL Routine 11/18/2024 1:32 PM EST US THYROID Routine 11/11/2024 8:10 AM EST Thyroid nodule US ABDOMEN COMPLETE Routine 11/09/2024 11:03 AM EST POCT INFLUENZA A (ID NOW RAPID MOLECULAR) Routine 10/21/2024 7:20 PM EST Acute conjunctivitis of right eye, unspecified acute conjunctivitis type POCT RAPID COVID ANTIGEN Routine 10/21/2024 7:20 PM EST Acute conjunctivitis of right eye, unspecified acute conjunctivitis type POCT INFLUENZA B (ID NOW RAPID MOLECULAR) Routine 10/21/2024 7:20 PM EST Acute conjunctivitis of right eye, unspecified acute conjunctivitis type ALBUMIN, RANDOM URINE W/CREATININE Routine 01/14/2024 9:20 AM EDT Type 2 diabetes mellitus without complication, without long-term current use of insulin ([facility]) LIPID PANEL WITH REFLEX TO DIRECT LDL Routine 01/14/2024 9:18 AM EDT Moderate mixed hyperlipidemia not requiring statin therapy BI MAMMOGRAM SCREENING BILATERAL Routine 06/05/2019 8:24 AM EDT from Last 3 Months or Most Recently Relevant to Health Maintenance Results * (ABNORMAL) POCT HGB A1C (12/08/2024 10:02 AM EST) Hemoglobin A1C 6.1(A) 4.0 - 6.0 % QC Media Lot # [id number] Lot# Expiration Date ,026 Blood 12/08/2024 10:0 2 AM EST Susanne Portillo MD POINT OF CARE TEST ENTER /EDIT ORDERABLES Final Result * POCT Glucose (12/08/2024 10:02 AM EST) Glucose Blood, POC 147 60 - 200 mg/dL QC Media Lot # [id number] Lot# Expiration Date 172,025 Blood Capillary blood specimen / Unknown 12/08/2024 10:02 AM EST Susanne Portillo MD POINT OF CARE TEST ENTER /EDIT ORDERABLES Final Result * Mr Brain w/ and w/o Contrast (11/19/2024 6:35 PM EST) Anatomical Region Laterality Modality Brain Magnetic Resonan ce 11/19/2024 6:35 PM EST Narrative 11/19/2024 6:37 PM EST ? [facility] ?[address] ?[place] [address] ? Magnetic Resonance Report ? Signed ? Patient: Clarita Forde ?MR ?? #: [id number] ? : 1955 ?Acct:[id number] ? Age/Sex: 69 / F ?ADM Date: 11/19/24 ? Loc: HO.MRI ? Attending Dr: Edyta Rueda MD ? Ordering Physician: Edyta Rueda MD ?? Date of Service: 11/19/24 ?? Procedure(s): MR head/brain wo/w con ?? Accession Number(s): [id number] ? cc: Susanen Portillo MD; Edyta Rueda MD ? CLINICAL [...] MD in OV> ?11/19/24 1836 ? DD/ 34 ? TD/TT: 11/19/241834 ? Nursing Department Chairperson: ? Procedure Note Eloisa, Image - 11/19/2024 [place] [address] Magnetic Resonance Report Signed Patient: Clarita Forde MMR #: [id number] : 1955cct:[id number] Age/Sex: 69 / FADM Date: 11/19/24 Loc: HO.MRI Attending Dr: Edyta Rueda MD Ordering Physician: Edyta Rueda MD Date of Service: 11/19/24 Procedure(s): MR head/brain wo/w con Accession Number(s): [id number] cc: Susanne Portillo MD; Edyta Rueda MD [...] in OV> 11/19/241835 DD/ 34 TD/TT: 11/19/241834 Nursing Department Chairperson: [facility] External Provider IMG MRI PROCEDURES Final Result * Hepatic Function Panel (11/18/2024 1:32 PM EST) Bilirubin, Total 0.5 0.0 - 1.0 mg/dL [facility] Bilirubin, Direct 0.1 0.0 - 0.5 mg/dL [facility] Aspartate Amino Transferase 28 5 - 31 U/L [facility] Alanine Aminotransferase 20 0 - 31 U/L [facility] Total Protein 7.0 6.5 - 8.0 g/dL [facility] Albumin Level 3.7 3.5 - 5.0 g/dL [facility] Alkaline Phosphatase 71 39 - 117 U/L [facility] 11/18/2024 1:32 PM EST 11/18/2024 1:32 PM EST us Generic External Data Provider LAB BLOOD ORDERAB LES Final Result [facility] [address] [place] [phone] * US Thyroid (11/11/2024 8:10 AM EST) Anatomical Region Laterality Modality Head, Neck Ultrasound 11/11/2024 8:10 AM EST Narrative 11/16/2024 12:21 PM EST ? [facility] ?[address] ?[place] [phone] ? Ultrasound Report ? Signed ? Patient: Clarita Forde ?MR ?? #: [id number] ? : 1955 ?Acct:[id number] ? Age/Sex: 69 / F ?ADM Date: 11/11/24 ? Loc: HO.US ? Attending Dr: Judie Rand MD ? Ordering Physician: Judie Slaughter MD ?? Date of Service: 11/11/24 ?? Procedure(s): US thyroid ?? Accession Number(s): [id number] ? cc: Judie Slaughter MD; Susanne Portillo MD ? EXAMINATION: ?? US THYROID ? CLINICAL INFORMATION: ?? Left upper lobe thyroid nodule ? COMPARISON: ?? None available. ? TECHNIQUE: ?? Linear transducer grayscale and color Doppler examination with ?? attention to the region of the thyroid. ? FINDINGS: ? SIZE: Measurements of the thyroid lobes and nodules are given in ?? sagittal, anteroposterior and transverse dimensions respectively. ? Right Thyroid Lobe: 3.2 x 0.9 x 1.0 cm, volume 1.5 mL. ?? Parenchyma: The gland echotexture is heterogeneous. Thyroid vascularity ?? is hypervascular. ? Left Thyroid Lobe: Not seen with certainty. However it measures 2.1 x ?? 0.6 x 0.7 cm, volume 0.5 mL. ?? Parenchyma: The gland echotexture is heterogeneous. Thyroid vascularity ?? is normal. ? Isthmus: 0.2 cm in maximum AP dimension. ? Estimated total number of nodules greater than or equal to 1 cm: None. ?? Behavioral Modification Assistant nodules are described as follows: ? NODES: No lymphadenopathy is seen in the tissue surrounding the thyroid ?? gland. ? US/US thyroid ?? IMPRESSION: ?? Normal size right thyroid lobe with diffuse heterogeneity and increased ?? blood flow but no nodules. ? The left lobe is not visualized with certainty however there is no ?? nodule seen either. ? ACR TI-RADS RECOMMENDATION REFERENCE: ?? Ultrasound-guided fine-needle aspiration, followup ultrasound, no ?? further follow up. ? * TR1 (0 point) and TR2 (2 points): No FNA or follow up. ? * TR3 (3 points): FNA if more than or equal to 2.5 cm in maximum ?? dimension, followup ultrasound in 1, 3 and 5 years if 1.5 to 2.4 cm in ?? maximum dimension. ? * TR4 (4-6 points): FNA if more than or equal to 1.5 cm in maximum ?? dimension, followup ultrasound in 1, 2, 3 and 5 years if 1 to 1.4 cm in ?? maximum dimension. ? * TR5 (more than or equal to 7 points): FNA if more than or equal to 1 ?? cm in maximum dimension, followup ultrasound every year for 5 years if ?? 0.5 to 0.9 cm in maximum dimension. ? * TR3, TR4 or TR5 nodules that are below the size threshold for ?? followup receive no follow up. ? Electronically signed by: ??Lawson De La Garza MD ??11/16/2024 12:18 PM EST RP ? Dictated By: ?Holli,Lawson S MD ? Signed By: ?<Electronically signed by Lawson S MD Holli in OV> ?11/16/24 1218 ? DD/ 0810 ? TD/TT: 11/11/24 0817 ? Nursing Department Chairperson: MSM ? Procedure Note Rajesh Amin - 11/16/[address] [address] Ultrasound Report Signed Patient: Ghada SchwarzClarita mcdonough [facility] #: [id number] : 6Acct:[id number] Age/Sex: 69 / FADM Date: 11/11/24 Loc: HO.US Attending Dr: Judie Rand MD Ordering Physician: Judie Slaughter MD Date of Service: 11/11/24 Procedure(s): US thyroid Accession Number(s): [id number] cc: Judie Slaughter MD; Susanne Portillo MD EXAMINATION: US THYROID CLINICAL INFORMATION: Left upper lobe thyroid nodule COMPARISON: None available. TECHNIQUE: Linear transducer grayscale and color Doppler examination with attention to the region of the thyroid. FINDINGS: SIZE: Measurements of the thyroid lobes and nodules are given in sagittal, anteroposterior and transverse dimensions respectively. Right Thyroid Lobe: 3.2 x 0.9 x 1.0 cm, volume 1.5 mL. Parenchyma: The gland echotexture is heterogeneous. Thyroid vascularity is hypervascular. Left Thyroid Lobe: Not seen with certainty. However it measures 2.1 x 0.6 x 0.7 cm, volume 0.5 mL. Parenchyma: The gland echotexture is heterogeneous. Thyroid vascularity is normal. Isthmus: 0.2 cm in maximum AP dimension. Estimated total number of nodules greater than or equal to 1 cm: None. Behavioral Modification Assistant nodules are described as follows: NODES: No lymphadenopathy is seen in the tissue surrounding the thyroid gland. US/US thyroid IMPRESSION: Normal size right thyroid lobe with diffuse heterogeneity and increased blood flow but no nodules. The left lobe is not visualized with certainty however there is no nodule seen either. ACR TI-RADS RECOMMENDATION REFERENCE: Ultrasound-guided fine-needle aspiration, followup ultrasound, no further follow up. * TR1 (0 point) and TR2 (2 points): No FNA or follow up. * TR3 (3 points): FNA if more than or equal to 2.5 cm in maximum dimension, followup ultrasound in 1, 3 and 5 years if 1.5 to 2.4 cm in maximum dimension. * TR4 (4-6 points): FNA if more than or equal to 1.5 cm in maximum dimension, followup ultrasound in 1, 2, 3 and 5 years if 1 to 1.4 cm in maximum dimension. * TR5 (more than or equal to 7 points): FNA if more than or equal to 1 cm in maximum dimension, followup ultrasound every year for 5 years if 0.5 to 0.9 cm in maximum dimension. * TR3, TR4 or TR5 nodules that are below the size threshold for followup receive no follow up. Electronically signed by: Lawson De La Garza MD 11/16/2024 12:18 PM EST RP Dictated By: Lawson De La Garza MD Signed By: <Electronically signed by Lawson De La Garza MD in OV> 11/16/24 1218 DD/ 0810 TD/TT: 11/11/24 0817 Nursing Department Chairperson: ROBE us Judie Rand MD IMG US PROCEDURES Kalia venancio Result - Final * US Abdomen Complete (11/09/2024 11:03 AM EST) Anatomical Region Laterality Modality Abdomen Ultrasound 11/09/2024 11:0 3 AM EST Narrative 11/09/2024 11:05 AM EST ? [facility] ?[address] ?[place] [address] ? Ultrasound Report ? Signed ? Patient: Ghada Rodriguez Sanchez,Clarita Ebony ?MR ?? #: [id number] ? : 1955 ?Acct:[id number] ? Age/Sex: 69 / F ?ADM Date: 11/09/24 ? Loc: HO.US ? Attending Dr: Edyta Rueda MD ? Ordering Physician: Edyta Rueda MD ?? Date of Service: 11/09/24 ?? Procedure(s): US abdomen complete ?? Accession Number(s): [id number] ? cc: Susanne Portillo MD; Edyta Rueda MD ? CLINICAL HISTORY: K75.4 - Autoimmune hepatitis ? US abdomen complete ? Comparison: None ? Findings: ?? The visualized pancreas is normal. ?? The visualized aorta and inferior vena cava are normal caliber. ? Hepatic size was not measured. Coarse hepatic echotexture. Hepatic surface ?? nodularity cannot be excluded (hepatic surface was not evaluated with a ?? linear probe). ?? There is no intrahepatic bile duct dilatation. ?? The common duct is 5.3 mm in diameter. ?? The gallbladder is normal. There is no sonographic Persaud sign. ?? The main portal vein is antegrade. ? Incompletely evaluated right kidney due to overlying bowel gas. The right ?? kidney measures at least 8.3 cm in length. Evaluated portion of right ?? kidney is unremarkable. ?? The left kidney is 10.8 cm in length. 12 mm simple left renal cyst. Left ?? kidney is unremarkable. ?? The spleen is normal and measures 8.9 cm in length ?? No ascites. ? IMPRESSION: ?? Mildly coarse hepatic echotexture may be incidental or due to underlying ?? hepatic disease. ?? Hepatic surface nodularity/cirrhosis cannot be excluded. ? This document has been electronically signed by: Renetta Lee MD on ?? 11/09/2024 11:03:41 ? Dictated By: ?Renetta Lee MD ? Signed By: ?<Electronically signed by Renetta Lee MD in OV> ? 11/09/24 1104 ? DD/ 1103 ? TD/TT: 11/09/24 1103 ? Nursing Department Chairperson: ? Procedure Note Dongilberto, Image - 11/09/2024 [place] [address] Ultrasound Report Signed Patient: Clarita Forde MMR #: [id number] : 1955cct:[id number] Age/Sex: 69 / FADM Date: 11/09/24 Loc: HO.US Attending Dr: Edyta Rueda MD Ordering Physician: Edyta Rueda MD Date of Service: 11/09/24 Procedure(s): US abdomen complete Accession Number(s): [id number] cc: Susanne Portillo MD; Edyta Rueda MD CLINICAL HISTORY: K75.4 - Autoimmune hepatitis US abdomen complete Comparison: None Findings: The visualized pancreas is normal. The visualized aorta and inferior vena cava are normal caliber. Hepatic size was not measured. Coarse hepatic echotexture. Hepatic surface nodularity cannot be excluded (hepatic surface was not evaluated with a linear probe). There is no intrahepatic bile duct dilatation. The common duct is 5.3 mm in diameter. The gallbladder is normal. There is no sonographic Persaud sign. The main portal vein is antegrade. Incompletely evaluated right kidney due to overlying bowel gas. The right kidney measures at least 8.3 cm in length. Evaluated portion of right kidney is unremarkable. The left kidney is 10.8 cm in length. 12 mm simple left renal cyst. Left kidney is unremarkable. The spleen is normal and measures 8.9 cm in length No ascites. IMPRESSION: Mildly coarse hepatic echotexture may be incidental or due to underlying hepatic disease. Hepatic surface nodularity/cirrhosis cannot be excluded. This document has been electronically signed by: Renetta Lee MD on 11/09/2024 11:03:41 Dictated By: Renetta Lee MD Signed By: <Electronically signed by Renetta Lee MD in OV> 11/09/24 1104 DD/ 1103 TD/TT: 11/09/24 1103 Nursing Department Chairperson: [facility] External Provider IMG US PROCEDURES Edited Result - Final * POCT Rapid Influenza B SAMAYOA ID NOW (10/21/2024 7:20 PM EST) Influenza B Negative Negative, Indeterminate [facility] Swab 10/21/2024 7:20 PM EST Мария Phalen 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 POINT OF CARE TEST ENTER/EDIT ORDERABLES Final Result Performing Organization Address [facility] Co de Phone Number [facility] [address] [place] [phone] * POCT Rapid Influenza A SAMAYOA ID NOW (10/21/2024 7:20 PM EST) Influenza A Negative Negative, Indeterminate [facility] Swab 10/21/2024 7:20 PM EST Мария Phalen 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 POINT OF CARE TEST ENTER/EDIT ORDERABLES Final Result Performing Organization Address [facility] de Phone Number [facility] [address] [place] [phone] * POCT Rapid Covid-19 BinaxNOW (10/21/2024 7:20 PM EST) Rapid COVID Ag Negative [facility] Swab 10/21/2024 7:20 PM EST us Мария Salas 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 POINT OF CARE TEST ENTER/EDIT ORDERABLES Final Result Performing Organization Address [facility] Co de Phone Number [facility] [address] [place] [address] [phone] * Albumin, Random Urine W/Creatinine (01/14/2024 9:20 AM EDT) Creatinine, Urine 141.99 mg/dL [facility] Microalbumin Urine 8.0 mg/L [facility] Microalbum Creatinine Ratio Ur 5.6 <30 ug/mg cr [facility] Comment:Albumin/Creatinine R atio Reference Ranges: Normal: < 30 ug/mg creatinine Microalbuminuria: 30 - 300 ug/mg creatinineClinical Albuminuria: > 300 ug/mg creatinine Urine (Urine, Random) 01/14/2024 9:20 AM EDT 01/14/2024 11:01 AM EDT us Susanne Portillo MD LAB URINE ORDERABLES Fin al Result Performing Organization Address [facility] Co de Phone Number [facility] [address] [place] [phone] * Lipid Panel with Reflex to Direct LDL (01/14/2024 9:18 AM EDT) Triglycerides 52 <150 mg/dL [facility] Comment:Desirable Triglyceri de: less than 150 mg/dLBorderline High Triglyceride 150-199 mg/dLHigh Triglyceride: 200-499 mg/dLVery High Triglyceride: greater than or equal to 5OO mg/dL Cholesterol 154 <200 mg/dL [facility] Comment:Desirable Cholestero l: less than 200 mg/dLBorderline High Cholesterol: 200-239 mg/dLHigh Cholesterol: greater than 239 mg/dL LDL Cholesterol Calculated 75 <100 mg/dL [facility] Comment:Desirable LDL: less than 100 mg/dLNear Optimal/Above Optimal LDL: 110- 129 mg/dLBorderline High LDL: 130-159 mg/dLHigh LDL: 160-189 mg/dLVery High LDL: greater than or equal to 190 mg/dL HDL Cholesterol 69 >40 mg/dL [facility] Comment:Desirable HDL: great er than 40 mg/dL Note: This HDL assay may give artificially low results in patients with liver disease. Blood 01/14/2024 9:18 AM EDT 01/14/2024 11:06 AM EDT us Susanne Portillo MD LAB BLOOD ORDERABLES Fin al Result [facility] [address] [place] [phone] * DIGITAL BILATERAL SCREEN 1 (06/05/2019 8:24 AM EDT) Anatomical Region Laterality Modality Breast Bilateral Mammography 06/05/2019 8:24 AM EDT Narrative 06/05/2019 8:25 AM EDT Refer to the Notes tab for result details [facility] Procedure: DIGITAL BILATERAL SCREEN 1 Procedure Note Provider, MD Jonathan - 01/26/2023 Refer to the Notes tab for result details [facility] Procedure: DIGITAL BILATERAL SCREEN 1 us Susanne Portillo MD IMG BI PROCEDURES Final Result from Last 3 Months or Most Recently Relevant to Health Maintenance [place] [address] [place] [address] STANDARD Care Teams Cuff Turner Machine Operator Relationship Specialty Start Date End Date Susanne Portillo MD [address] [place] [phone] PCP - General Family Medicine 06/02/19
--- OUTSIDE RECORDS SUMMARY | 2024-12-10 12:33 | XMS_ITS | Encounter Summary ---
Author Organization [email or web address] Address [address] [facility] [address] [place] [address] Care Team Providers Care Bottle Caser Name Role Phone Susanne Portillo MD Primary Care Provider + Reason for Visit * Reason Onset Date Comments Med Refill 11/16/2024 Encounter Details Date Type Department Care Team ([facility] st Contact Info) Description 11/16/2024 Telephone [facility] [address], [place] [phone] Susanne Portillo MD [address] [place] [address] Med Refill Social History Tobacco Use Types [...] encounter Miscellaneous Notes * Telephone Encounter - Chelo Vora RN - 11/16/2024 4:33 PM EST TC to pt to inquire about refill request. Nurse informed pt that she should have supply based on last script from 10/05/24 that was a 90 da supply. Pt states she did not pick this up because she was on vacation but will sweet pickled fruit maker. Also has GI f/u on Saturday. * Telephone Encounter - Chelo Vora RN - 11/16/2024 4:33 PM EST ----- Message from Paz Winters sent at 11/16/2024 4:21 PM EST ----- Regarding: Med refill Leandro, pt is requesting med refill for Imuran 50 mg. documented in this encounter Plan of Treatment Not on file documented as of this encounter Visit Diagnoses Not on filedocumented in this encounter Additional Health Concerns Assessment Noted Time PHQ-9 Depression Total Score: 12 024 3:45 PM EDT documented as of this encounter Care Teams Bottle Caser Relationship Specialty Start Date End Date Susanne Portillo MD [address] [place] [address] [place] [address] PCP - General Family Medicine 06/02/19 documented as of this encounter
--- OUTSIDE RECORDS SUMMARY | 2024-12-10 12:33 | XMS_ITS | Encounter Summary ---
Author Organization [facility] Address [address] [facility] [address] [place] [address] Care Team Providers Care Bottom Man Name Role Phone Susanne Portillo MD Primary Care Provider + Reason for Referral * Consultation (Routine) - Closed Specialty Diagnoses / Procedures Referred By Contac t Referred To Contact Physical Therapy Diagnoses Primary osteoarthritis of both knees Susanne Portillo MD [address] [place] [phone] Phone: tel: fax: [facility] [address] [place] [address] Phone: tel: fax: Referral ID Status Reason Start Date Expiration Date V isits Requested Visits Authorized [id number] Closed Specialty Services Required 12/08/2024 12/08/2025 1 1 Reason for Visit * Reason Comments Labs Only Encounter Details Date Type Department Care Team (Latest Contact Info) Description 12/08/2024 10:00 AM EST Office Visit [facility] [address] [place] [phone] Susanne Portillo MD [address] [place] [phone] Type 2 diabetes mellitus without complication, without long-term current use of insulin (CMS/HCC) (Primary Dx); Primary osteoarthritis of both knees; ISABEL (obstructive sleep apnea); Acquired hypothyroidism; Primary biliary cholangitis (CMS/HCC) Social History Tobacco [...] AM EDT documented as of this encounter Last Filed Vital Signs Vital Sign Reading Time Taken Comments Blood Pressure 136/76 12/08/2024 9:50 AM EST Pulse 60 12/08/2024 9:50 AM EST Temperature 36.4 ??C (97.5 ??F) 12/08/2024 9:50 AM ES T Respiratory Rate 20 12/08/2024 9:50 AM EST Oxygen Saturation - - Inhaled Oxygen Concentration - - Weight 94 kg (207 lb 4 oz) 12/08/2024 9:50 AM ES T Height 170.2 cm (5' 7 ) 12/08/2024 9:50 AM EST Body Mass Index 32.46 12/08/2024 9:50 AM EST documented in this encounter Progress Notes * Susanne Portillo MD - 12/08/2024 10:00 AM EST SUBJECTIVE: Clarita Cassidy is a 69 y.o. year old female who presents for follow up. Denies recent illness, injury, or hospitalization. Pt is here for a FU on DM/labs. Labs on 07/31/24 showed normal TFTs, CVC with mild macrocytic anemia, normal CMP. MRI of the brain on 11/19/24 showed mild ethmoid, sinusitis, otherwise unspecific WM changes and no other abnormalities. She reports her BS at home to be within normal limits. She continues taking all of her medications and is doing well on them. She is using CPAP but feels the pressure it to high and it is causing discomfort. She continues with pain in her head, often in the mornings. She has seen an pricer bagger. Acute Concerns: She complains of having trouble sleeping and has not been sleeping much. She complains of pain in both of her knees. She reports a fall a few months ago, but none recently.She had a cortisone injection a few months ago. Social History Social History Narrative Not on file Patient Active Problem List Diagnosis Primary biliary cholangitis (CMS/HCC) Type 2 diabetes mellitus without complication (CMS/HCC) Hyperlipidemia Frequent headaches Chronic thoracic back pain Acquired hypothyroidism Degenerative joint disease of hand Chronic low back pain Obesity (BMI 35.0-39.9 without comorbidity) Vitamin D deficiency Episodic tension-type headache, not intractable Exertional dyspnea Daytime somnolence Chloasma Hypersomnia ISABEL (obstructive sleep apnea) Recurrent major depressive disorder (CMS/HCC) Chronic pain of left knee Pain in both feet Thyroid nodule Primary osteoarthritis of both knees No family history on file. Review of Systems Constitutional: Negative for chills, fatigue and fever. HENT: Negative for congestion, ear pain, nosebleeds, rhinorrhea, sinus pressure, sore throat and trouble swallowing. Eyes: Negative for pain and discharge. Respiratory: Negative for cough, chest tightness and shortness of breath. Cardiovascular: Negative for chest pain, palpitations and leg swelling. Gastrointestinal: Negative for abdominal pain, blood in stool, constipation, diarrhea and nausea. Endocrine: Negative for polydipsia and polyuria. Genitourinary: Negative for dysuria, frequency, genital sores, pelvic pain and vaginal discharge. Musculoskeletal: Positive for arthralgias. Negative for back pain and neck pain. Skin: Negative for rash. Allergic/Immunologic: Negative for environmental allergies. Neurological: Positive for headaches. Negative for dizziness, seizures, weakness and light-headedness. Hematological: Negative for adenopathy. Psychiatric/Behavioral: Positive for sleep disturbance. Negative for agitation, behavioral problems, self-injury and suicidal ideas. OBJECTIVE: Vitals: 12/08/24 0950 BP: 136/76 Pulse: 60 Resp: 20 Temp: 97.5 ??F (36.4 ??C) Physical Exam Constitutional: Appearance: Normal appearance. HENT: Right Ear: Tympanic membrane and ear canal normal. Left Ear: Tympanic membrane and ear canal normal. Mouth/Throat: Mouth: Mucous membranes are moist. Pharynx: No oropharyngeal exudate or posterior oropharyngeal erythema. Eyes: Pupils: Pupils are equal, round, and reactive to light. Cardiovascular: Rate and Rhythm: Normal rate and regular rhythm. Heart sounds: No murmur heard. Pulmonary: Breath sounds: Normal breath sounds. No wheezing. Abdominal: General: Bowel sounds are normal. Palpations: Abdomen is soft. Tenderness: There is no abdominal tenderness. Musculoskeletal: General: Normal range of motion. Cervical back: Normal range of motion. No tenderness. Right knee: Crepitus present. Tenderness present over the medial joint line. Left knee: Crepitus present. Tenderness present over the medial joint line. Skin: General: Skin is warm. Neurological: General: No focal deficit present. Mental Status: She is alert and oriented to person, place, and time. Psychiatric: Mood and Affect: Mood normal. Office Visit on 12/08/2024 Component Date Value Ref Range Status Glucose Blood, POC 12/08/2024 147 60 - 200 mg/dL Final QC Media Lot # 12/08/2024 [id number] Final Lot# Expiration Date 12/08/2024 [id number] Final Hemoglobin A1C 12/08/2024 6.1 (A) 4.0 - 6.0 % Final QC Media Lot # 12/08/2024 [id number] Final Lot# Expiration Date 12/08/2024 [id number] Final Problem List Items Addressed This Visit Type 2 diabetes mellitus without complication (CMS/HCC) - Primary Controlled. A1c is at goal. Continue on Metformin once a day. Counseled re more frequent low calorie/carb meals. Encouraged physical activity as tolerated. FU in 3-4 months. Relevant Orders POCT Glucose (Completed) POCT HGB A1C (Completed) Primary osteoarthritis of both knees Refer to PT, take Tylenol PRN and gave her information to come to acupuncture clinic. Relevant Orders Referral to Physical Therapy ISABEL (obstructive sleep apnea) Pt is not tolerating CPAP properly with too much pressure on her face and ? Air blowing out of the mask (air leak?). I spoke with Josefina from [facility] [place] ([place] Office [phone]) who will send Resp Therapistto fu with patient. They may need to monitor O2 overnight and CPAP usage, re evaluate face mask/hose. If she continues w same complaints despite corrective measures, I will consider CPAP at 10 cm instead of auto CPAP to see if she can tolerate it better. Will fu in 1mo, patient will reach out to us if she hasn't been contacted. Acquired hypothyroidism TSH is at goal, continue Levothyroxine 100 mcg per day. Primary biliary cholangitis (CMS/HCC) Followed by GI. Continue Imuran + Ursodiol and avoid constipation. LFTs are normal and stable. Follow Up: Current Outpatient Medications on File Prior to Visit Medication Sig Dispense Refill atorvastatin (Lipitor) 20 MG tablet Take 1 tablet (20 mg) by mouth in the morning. 90 tablet 3 azaTHIOprine (Imuran) 50 MG tablet TAKE 1 TABLET BY MOUTH EVERY DAY 90 tablet 0 Calcium Carb-Cholecalciferol (Calcium 600+D3) 600-10 MG-MCG tablet Take 1 tablet by mouth Once per day. 90 tablet 3 carvedilol (Coreg) 6.25 MG tablet Take 1 tablet (6.25 mg) by mouth with breakfast and with evening meal. 180 tablet 3 FLUoxetine (PROzac) 20 MG capsule Take 1 capsule (20 mg) by mouth in the morning. 90 capsule 3 folic acid (Folvite) 1 MG tablet Take 1 tablet (1,000 mcg) by mouth in the morning. 90 tablet 3 FreeStyle lancets USE ONE DIRECTED TO CHECK BLOOD SUGAR IN THE MORNING glucose blood test strip Use as instructed 100 each 12 lactulose (Chronulac) 10 GM/15ML solution Take 22.5 mL (15 g) by mouth Once per day. 5 mL 3 Lancets Misc. kit 1 each in the morning. 50 kit 11 levothyroxine (Synthroid, Levoxyl) 100 MCG tablet TAKE 1 TABLET(100 MCG) BY MOUTH BEFORE BREAKFAST 90 tablet 1 metFORMIN (Glucophage) 850 MG tablet TAKE 1 TABLET BY MOUTH TWICE DAILY WITH THE MORNING AND EVENING MEAL 180 tablet 3 rifAXIMin (Xifaxan) 550 MG tablet Take 550 mg by mouth 2 times daily. ursodiol (Actigall) 300 MG capsule Take 1 capsule (300 mg) by mouth 3 times daily. 270 capsule 3 [DISCONTINUED] Blood Glucose Monitoring Suppl (FreeStyle Lite) w/Device kit 1 each in the morning. 1 kit 0 [DISCONTINUED] erythromycin (Romycin) 5 MG/GM ophthalmic ointment Apply Amount per Dose: 0.25 inch (~0.5 cm) per dose. TID for 1 week. 15 g 0 [DISCONTINUED] tobramycin-dexAMETHasone (TobraDex) ophthalmic suspension Administer 1 drop into theright eye 4 times daily. Shake bottle before using. 5 mL 0 No current facility-administered medications on file prior to visit. I, Annika Ellis, am serving as a scribe to document services personally performed by Dr. Susanne Portillo, based on the patient's response to questions by provider and provider's statements to me. documented in this encounter Miscellaneous Notes * Assessment & Plan Note - Annika Ellis - 12/08/2024 1:17 PM ESTAssociated Problem(s): Primary osteoarthritis of both knees Refer to PT, take Tylenol PRN and gave her information to come to acupuncture clinic. * Assessment & Plan Note - Annika Ellis - 12/08/2024 1:16 PM ESTAssociated Problem(s): Primary biliary cholangitis (CMS/HCC) Followed by GI. Continue Imuran + Ursodiol and avoid constipation. LFTs are normal and stable. * Assessment & Plan Note - Annika Ellis - 12/08/2024 1:15 PM ESTAssociated Problem(s): Acquired hypothyroidism TSH is at goal, continue Levothyroxine 100 mcg per day. * Assessment & Plan Note - Annika Ellis - 12/08/2024 1:15 PM ESTAssociated Problem(s): Type 2 diabetes mellitus without complication ([facility]) Controlled. A1c is at goal. Continue on Metformin once a day. Counseled re more frequent low calorie/carb meals. Encouraged physical activity as tolerated. FU in 3-4 months. * Assessment & Plan Note - Annika Ellis - 12/08/2024 1:14 PM ESTAssociated Problem(s): ISABEL (obstructive sleep apnea) Pt is not tolerating CPAP properly with too much pressure on her face and ? Air blowing out of the mask (air leak?). I spoke with Josefina from [facility] [place] ([place] Office [phone]) who will send Resp Therapistto fu with patient. They may need to monitor O2 overnight and CPAP usage, re evaluate face mask/hose. If she continues w same complaints despite corrective measures, I will consider CPAP at 10 cm instead of auto CPAP to see if she can tolerate it better. Will fu in 1mo, patient will reach out to us if she hasn't been contacted. documented in this encounter Plan of Treatment Scheduled Referrals Name Type Priority Associated Diagnoses Orde r Schedule Referral to Physical Therapy Outpatient Referral Routine Primary osteoarthritis of both knees Expected: 12/08/2024 (Approximate), Expires: 12/08/2025 documented as of this encounter Procedures Procedure Name Priority Date/Time Associated Diagnosis Comments POCT GLYCATED HEMOGLOBIN, TOTAL Routine 12/08/2024 10:02 AM EST Type 2 diabetes mellitus without complication, without long-term current use of insulin ([facility]) POCT GLUCOSE Routine 12/08/2024 10:02 AM EST Type 2 diabetes mellitus without complication, without long-term current use of insulin ([facility]) documented in this encounter Results * (ABNORMAL) POCT HGB A1C (12/08/2024 10:02 AM EST) Hemoglobin A1C 6.1(A) 4.0 - 6.0 % QC Media Lot # [id number] Lot# Expiration Date Blood 12/08/2024 10:0 2 AM EST Susanne Portillo MD POINT OF CARE TEST ENTER /EDIT ORDERABLES Final Result * POCT Glucose (12/08/2024 10:02 AM EST) Glucose Blood, POC 147 60 - 200 mg/dL QC Media Lot # [id number] Lot# Expiration Date ,025 Blood Capillary blood specimen / Unknown 12/08/2024 10:02 AM EST Susanne Portillo MD POINT OF CARE TEST ENTER /EDIT ORDERABLES Final Result documented in this encounter Visit Diagnoses Diagnosis Type 2 diabetes mellitus without complication, without long-term current use of insulin ([facility])- Primary Primary osteoarthritis of both knees ISABEL (obstructive sleep apnea) Obstructive sleep apnea (adult) (pediatric) Acquired hypothyroidism Unspecified hypothyroidism Primary biliary cholangitis ([facility]) documented in this encounter Additional Health Concerns Assessment Noted Time PHQ-9 Depression Total Score: 12 05/15/2 024 3:45 PM EDT documented as of this encounter Care Teams Bottom Man Relationship Specialty Start Date End Date Susanne Portillo MD [address] [place] [phone] PCP - General Family Medicine 06/02/19 documented as of this encounter
--- OUTSIDE RECORDS SUMMARY | 2024-12-10 12:33 | XMS_ITS | Encounter Summary ---
Author Organization [employer] Address [address] [facility] [address] [place] [address] Care Team Providers Care Franchise Sales Representative Name Role Phone Susanne Portillo MD Primary Care Provider + Reason for Visit * Reason Comments Acupuncture Encounter Details Date Type Department Care Team ([facility] st Contact Info) Description 12/08/2024 11:00 AM EST Office Visit [facility] MEDICINE [address] [place], [place] [phone] Viki Alfonso MD [address] [place], [place] [phone] Chronic low back pain without sciatica, unspecified back pain laterality (Primary Dx); Stress reaction Social History Tobacco Use Types Packs/Day Years [...] as of this encounter Progress Notes * Viki Alfonso MD - 12/08/2024 11:00 AM EST Subjective Patient ID: Clarita Cassidy is a 69 y.o. female who presents for Acupuncture. Clarita is here for ongoing acupuncture for stress and pain. She was in [facility] for a few months and hasn't had a treatment since April,. She is experiencing a ALEGRIA and back pain today. Objective Physical Exam Constitutional: Appearance: Normal appearance. Skin: General: Skin is warm and dry. Neurological: Mental Status: She is alert and oriented to person, place, and time. Assessment/Plan Diagnoses and all orders for this visit: Chronic low back pain without sciatica, unspecified back pain laterality Stress reaction Written consent obtained for ear acupuncture. Ears prepped with alcohol pad. Five ear points needled bilaterally: Sympathetic, Sood Men, Kidney, Liver and Lung. Treatment duration: 30 minutes. Good hemostasis. Patient tolerated well. Follow up weekly for repeat acupuncture treatments as desired. documented in this encounter Plan of Treatment Not on file documented as of this encounter Visit Diagnoses Diagnosis Chronic low back pain without sciatica, unspecified back pain laterality- Primary Stress reaction Unspecified acute reaction to stress documented in this encounter Additional Health Concerns Assessment Noted Time PHQ-9 Depression Total Score: 12 024 3:45 PM EDT documented as of this encounter Care Teams Franchise Sales Representative Relationship Specialty Start Date End Date Susanne Portillo MD [address] [place] [id number] PCP - General Family Medicine 06/02/19 documented as of this encounter
--- OUTSIDE RECORDS SUMMARY | 2024-12-10 12:33 | XMS_ITS | Encounter Summary ---
Author Organization [employer] Address [address] [address] [place] [address] Care Team Providers Care Loading Checker Name Role Phone Susanne Portillo MD Primary Care Provider + Reason for Visit * Reason Comments Med Refill Encounter Details Date Type Department Care Team ([facility] st Contact Info) Description 03/29/2024 Refill [facility] MED[facility]INE [address] [place], [place] [phone] Susanne Portillo MD [address] [place], [place] [phone] Social History Tobacco Use Types Packs/Day Years [...] documented as of this encounter Care Teams Loading Checker Relationship Specialty Start Date End Date Susanne Portillo MD [address] [place] [id number] PCP - General Family Medicine 06/02/19 documented as of this encounter
--- OUTSIDE RECORDS SUMMARY | 2024-12-10 12:33 | XMS_ITS | Encounter Summary ---
Author Organization [employer] Address [address] [facility] [address] [place] [address] Care Team Providers Care Shoeshiner Name Role Phone Susanne Portillo MD Primary Care Provider + Reason for Visit * Reason Onset Date Comments Med Refill 11/14/2024 Encounter Details Date Type Department Care Team ([facility] st Contact Info) Description 11/14/2024 Refill [facility] MEDICINE [address] [place], [place] [phone] Susanne Portillo MD [address] [place] [address] Social History Tobacco Use Types Packs/Day Years [...] documented as of this encounter Care Teams Shoeshiner Relationship Specialty Start Date End Date Susanne Portillo MD [address] [place] [address] PCP - General Family Medicine 06/02/19 documented as of this encounter
--- NOTE | 2024-12-10 13:10 | PFT_ITS ---
Flows: FEV1: 114 % of predicted at 2.65 L FVC: 121 % of predicted at 3.64 L FEV1/FVC: 73 % Bronchodilator response: Absent Volumes: Total lung capacity: 104 % of predicted at 5.39 L Residual volume: 97 % of predicted at 1.93 L Slow vital capacity: 109 % of predicted at 3.46 L Expiratory reserve volume: 65 % of predicted at 0.50 L Diffusion capacity: Normal Impression: No obstructive or restrictive ventilatory defect. No bronchodilator response. Normal pulmonary function test. MTDD
== END 2024-12-10 12:31 | disposition home or self-care (01) ==
LOC: HO.RESP 12:30
PROVIDERS: PCP Internal Medicine; Visit Provider Internal Medicine
DX: R06.09 Other forms of dyspnea (principal)
CPT/HCPCS: 94010; 94640; 94727; 94729

== ENCOUNTER → 2024-12-10 13:10 | Outpatient (BNV) | payer MEDICAID, SELFPAY | PROVIDERS: PCP Internal Medicine; Visit Provider Internal Medicine Pulmonary Disease | DX: R06.09 Other forms of dyspnea (principal) | CPT/HCPCS: 94060; 94727; 94729 ==

== ENCOUNTER 2025-06-26 08:35 | Outpatient (REF) | payer MEDICARE, MEDICAID, SELFPAY ==
[2025-06-26 10:07] LABS: Hemoglobin A1C 134.7890 umol/L; Total Hemoglobin (HGBA1C) 3217.0104 umol/L
[2025-06-26 11:15] LABS: Anion Gap 8 (12-20)
[2025-06-26 11:21] LABS: Microalbum/Creatinine Ratio Ur 7.0 ug/mg cr (<30)
[2025-06-26 11:21] LABS: Alanine Aminotransferase 12 U/L (0-31); Albumin Level 3.7 g/dL (3.5-5.0); Alkaline Phosphatase 78 U/L (39-117); Aspartate Amino Transferase 24 U/L (5-31); Blood Urea Nitrogen 16 mg/dL (9-16); Calcium 9.9 mg/dL (8.4-10.2); Carbon Dioxide 27 mmol/L (22-29); Chloride 112 mmol/L (96-108); Estimated Glomerular Filt Rate > 60; Potassium 4.4 mmol/L (3.3-5.1); Sodium 143 mmol/L (135-145); Total Protein 7.0 g/dL (6.5-8.0)
[2025-06-26 11:55] LABS: Free T4 (Free Thyroxine) 1.03 ng/dL (0.71-1.85); Thyroid Stimulating Hormone 1.31 uIU/mL (0.32-4.0)
== END 2025-06-26 08:36 | disposition home or self-care (01) ==
LOC: HO.LAB 08:35
PROVIDERS: PCP Internal Medicine; Visit Provider Internal Medicine
DX: E11.9 Type 2 diabetes mellitus without complications (principal); E03.9 Hypothyroidism, unspecified; E55.9 Vitamin D deficiency, unspecified
CPT/HCPCS: 36415; 80053; 82043; 82306; 82570; 83036; 84436; 84439; 84443; 84480; 84481

== ENCOUNTER 2025-07-13 09:20 | Outpatient (REF) | payer MEDICARE, MEDICAID, SELFPAY ==
--- NOTE | ~2025-07-13 | US_ITS ---
CLINICAL HISTORY: K74.3 - Primary biliary cirrhosis US abdomen complete Comparison: US/MA - US ABDOMEN COMPLETE - 11/09/2024 08:13 AM EST Findings: The visualized pancreas is normal. The aorta and inferior vena cava are normal caliber. The liver is atrophic coarse and nodular in contour. There is no intrahepatic bile duct dilatation. The common duct is 5 mm in diameter. The gallbladder is normal. There is no sonographic Persaud sign. The main portal vein is antegrade. The right kidney is 9.2 cm in length. The left kidney is 11.0 cm in length. 1.0 cm lower pole cyst. The spleen is normal. No ascites. IMPRESSION: 1. Atrophic liver with coarse echogenicity and nodular contour consistent with sequelae of hepatic cirrhosis. 2. Left kidney lower pole 1 cm cyst. This document has been electronically signed by: Spenser Foley MD on 07/13/2025 20:24:56
--- OUTSIDE RECORDS SUMMARY | 2025-07-13 10:45 | XMS_ITS | Encounter Summary ---
Author Organization [employer] Address [address] [facility] [address] [place] [address] Care Team Providers Care Drilling Engineer Name Role Phone Susanne Portillo MD Primary Care Provider + Reason for Visit * Reason Comments Med Refill Encounter Details Date Type Department Care Team ([facility] st Contact Info) Description 03/29/[address] [facility] MEDICINE [address] [place], [place] [phone] Susanne Portillo MD [address] [place], [place] [phone] Social History Tobacco Use Types Packs/Day Years [...] as of this encounter Plan of Treatment Upcoming Encounters Date Type Department Care Team (Late st Contact Info) Description 08/04/2025 11:00 AM EDT Office Visit [facility] OPTOMETRY [address] [place] [address] Can, Abril, OD [address] [place] [address] documented as of this encounter Visit Diagnoses Not on filedocumented in this encounter Additional Health Concerns Assessment Noted Time PHQ-9 Depression Total Score: 2 12/27/19 24 12:05 PM EST documented as of this encounter Care Teams Drilling Engineer Relationship Specialty Start Date End Date Susanne Portillo MD [address] [place] [address] PCP - General Family Medicine 06/02/19 documented as of this encounter
--- OUTSIDE RECORDS SUMMARY | 2025-07-13 10:45 | XMS_ITS | Encounter Summary ---
Author Organization [employer] Address [address] [facility] [address] [place] [address] Care Team Providers Care Coat Joiner Lockstitch Name Role Phone Susanne Portillo MD Primary Care Provider + Reason for Visit * Reason Onset Date Comments Med Refill 07/21/2024 Encounter Details Date Type Department Care Team ([facility] st Contact Info) Description 07/21/2024 Refill [facility] MEDICINE [address] [place], [place] [phone] Susanne Portillo MD [address] [place] [address] Social History Tobacco Use Types Packs/Day Years [...] Description 08/04/2025 11:00 AM EDT Office Visit [facility] OPTOMETRY [address] [place], [place] [phone] Abril [place], OD [address] [place] [address] documented as of this encounter Visit Diagnoses Not on filedocumented in this encounter Additional Health Concerns Assessment Noted Time PHQ-9 Depression Total Score: 12 024 3:45 PM EDT documented as of this encounter Care Teams Coat Joiner Lockstitch Relationship Specialty Start Date End Date Susanne Portillo MD [address] [place] [address] PCP - General Family Medicine 06/02/19 documented as of this encounter
--- OUTSIDE RECORDS SUMMARY | 2025-07-13 10:45 | XMS_ITS | Clinical Summary ---
Author Organization [employer] Address [address] [facility] 7[address] [place] [address] Care Team Providers Care Server Manager Name Role Phone Susanne Portillo MD Primary Care Provider + Allergies No known active allergies Medications * This document contains information received from the source organization and may not represent a complete record from that organization. carvedilol (Coreg) 6.25 MG tablet Take 1 tablet (6.25 mg) by mouth with breakfast and with evening meal. 180 tablet 3 12/27/19 24 Active glucose blood test strip Use as instructed 100 each 12 01/24/20 24 Active FreeStyle lancets USE ONE DIRECTED TO CHECK BLOOD SUGAR IN THE MORNING 01/24/20 24 Active azaTHIOprine (Imuran) 50 MG tabletIndicatio ns:Primary biliary cholangitis (CMS/HCC) TAKE 1 TABLET BY MOUTH EVERY DAY 90 tablet 10/05/20 24 Active rifAXIMin (Xifaxan) 550 MG tablet Take 550 mg by mouth 2 times daily. Active Blood Glucose Monitoring Suppl (FreeStyle Lite) w/Device kit 1 each Once per day. 1 kit 12/08/19 25 026 Active ursodiol (Actigall) 300 MG capsuleIndicati ons:Primary biliary cholangitis (CMS/HCC) Take 1 capsule (300 mg) by mouth 3 times daily. 270 capsule 3 12/27/19 25 026 Active levothyroxine (Synthroid, Levoxyl) 100 MCG tablet TAKE 1 TABLET(100 MCG) BY MOUTH BEFORE BREAKFAST 90 tablet 1 12/27/19 25 Active folic acid (Folvite) 1 MG tablet Take 1 tablet (1,000 mcg) by mouth Once per day. 90 tablet 3 12/27/19 25 026 Active FLUoxetine (PROzac) 20 MG capsule TAKE 1 CAPSULE(20 MG) BY MOUTH IN THE MORNING 90 capsule 3 01/27/20 25 Active atorvastatin (Lipitor) 20 MG tablet TAKE 1 TABLET(20 MG) BY MOUTH IN THE MORNING 90 tablet 3 01/27/20 25 Active lactulose (Chronulac) 10 GM/15ML solution Take 22.5 mL (15 g) by mouth 4 times daily. 8100 mL 3 06/02/20 25 026 Active metFORMIN (Glucophage) 850 MG tabletIndicatio ns:Type 2 diabetes mellitus without complication, without long-term current use of insulin (CMS/HCC) TAKE 1 TABLET BY MOUTH TWICE DAILY WITH THE MORNING AND EVENING MEAL 180 tablet 3 06/23/20 25 Active ergocalciferol (Vitamin D2) 1.25 MG (82505 UT) capsule Take 1 capsule (1.25 mg) by mouth 1 (one) time per week. 12 capsule 1 07/09/20 25 026 Active metFORMIN (Glucophage) 850 MG tabletIndicatio ns:Type 2 diabetes mellitus without complication, without long-term current use of insulin (CMS/HCC) TAKE 1 TABLET BY MOUTH TWICE DAILY WITH THE MORNING AND EVENING MEAL 180 tablet 3 06/12/20 24 025 Discontinued Active Problems Problem Noted Date Diagnosed Date [...] nodule 07/21/2024 Recurrent major depressive disorder 05/26/2024 Assessment & Plan (06/02/2025 3:17 PM EDT): She is doing well, she has good support going through divorce proceedings, she will talk today with clinician Continue fluoxetine ISABEL (obstructive sleep apnea) 04/26/2024 Overview (04/26/2024): Sleep 04/01/24 [facility] htal. Auto CPAP 8-20 cm H2O Assessment & Plan (12/08/2024 2:45 PM EST): Pt is not tolerating CPAP properly with too much pressure on her face and ? Air blowing out of the mask (air leak?). I spoke with Josefina from [facility] ([place] Office [phone]) who will send Resp Therapist to fu [...] exercise, life style modifications, diet, referral to software development specialist. 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 Assessment & Plan (06/02/2025 3:18 PM EDT): She has been doing well on Imuran + ursodiol. Advised to increase lactulose and titrate up to having to loose/semi- loose BMs per day Follow-up with GI with liver ultrasound Check LFTs Advised to bring note from her hepatology in [facility], she will bring up the topic of rifaximin with them Assessment & Plan (12/08/2024 1:16 PM EST): Followed by GI. Continue Imuran + Ursodiol and avoid constipation. LFTs are normal and stable. Assessment & Plan (12/27/2023 3:20 PM EST): Last LFTs nml, Has liver fibrosis G2/4 (Bx on 2019, [facility]) -cont ursodiol TID + lactulose + Imuran 50mg/d -cont carvedilol 6.25 bid for portal gastropathy bleeding prophylaxis and portal HTN -Refer to w/ GI -f/u w/ me next mos Type 2 diabetes mellitus without complication Assessment & Plan (06/02/2025 3:15 PM EDT): Controlled, will get A1c prior to next visit Continue metformin once daily and follow-up with me in 3 months Assessment & Plan (12/08/2024 1:15 PM EST): [...] meals. -Check fgstk 1x/ daily. Refr to anthropology professor. -Encouraged physical activity as tolerated. -FU in 1 months. Encounters * This document contains information received from the source organization and may not represent a complete record from that organization. Date Type Department Care Team Description 07/09/2025 Results Follow-Up [facility] [address] [place] [phone] Susanne Portillo MD Albumin, Random Urine W/Creatinine, T3, Free, T3, Total, Additional followed-up results: 6 06/22/2025 Refill [facility] [address] [place] [phone] Susanne Portillo MD Type 2 diabetes mellitus without complication, without long-term current use of insulin ([facility]) 06/01/2025 12:00 PM EDT Telemedicine [address] [address] Susanne Portillo MD Type 2 diabetes mellitus without complication, without long-term current use of insulin (CMS/HCC) (Primary Dx); Moderate episode of recurrent major depressive disorder (CMS/HCC); Primary biliary cholangitis (CMS/HCC); Acquired hypothyroidism; Vitamin D deficiency 06/01/2025 Travel 05/28/[address] [address] Susanne Portillo MD chart prep 04/19/[address] [phone] Susanne Portillo MD telephone call 04/12/[address] [phone] Susanne Portillo MD Chart Prep from Last 3 Months Immunizations Immunization Administration Dates Next Due Influenza injectable quadrivalent preservative f ree 12/03/2019 Social History Tobacco Use Types Packs/Day Years Used Date Smoking Tobacco: Former Cigarettes Passive Smoke Exposure: Never Smokeless Tobacco: Never Tobacco Cessation:Counseling Given: Not Answered Alcohol Use Standard Drinks/Week Comments Never 0 (1 standard drink = 0.6 oz pur e alcohol) Depression Answer Date Recorded Patient Health Questionnaire-9 Score 9 06/01/2025 Patient Health Questionnaire-9 Score 9 06/01/2025 Last PHQ-9: Questionnaire Data Not on file 0 06/01/2025 Housing Stability Answer Date Recorded What is your housing situation today? I have ann marie cuellar 06/01/[address] you li ve. Do you have problems with any of the following? None of the above 06/01/2025 Food Insecurity Answer Date Recorded Within the past 12 months, y ou worried that your food would run out before you got money to buy more: Never True 06/01/2025 Within the past 12 months,th e food you bought just didn't last and you didn't have enough money to get more: Never True Transportation Answer Date Recorded In the past 12 months, has l ack of transportation kept you from medical appts, meetings, work or from getting things needed for daily living? No 06/01/2025 Utilities Answer Date Recorded In the past 12 months, has t he electric, gas, oil or water [employer] threatened to shut off services in your home? No 06/01/2025 Depression Answer Date Recorded Patient Health Questionnaire-2 Score 5 06/01/2025 Internet Access Answer Date Recorded Internet Access Q1 Yes 06/01/2025 Internet Access Q2 Not on file 06/01/2025 Comments Unknown Sex and Gender Information Value Date Recorded Sex Assigned at Female 09/03/2022 10:35 AM EDT Legal Sex Female 10:35 AM EDT Gender Identity Female 09/03/2022 10:35 AM EDT Sexual Orientation Straight 09/03/2022 10 :35 AM EDT Last Filed Vital Signs Vital Sign Reading Time Taken Comments Blood Pressure 136/76 12/08/2024 9:50 AM EST Pulse 60 12/08/2024 9:50 AM EST Temperature 36.4 C (97.5 F) 12/08/2024 9:50 AM EST Respiratory Rate 20 12/08/2024 9:50 AM EST Oxygen Saturation 98% 07/21/2024 1:17 PM EDT Inhaled Oxygen Concentration - - Weight 94 kg (207 lb 4 oz) 12/08/2024 9:50 AM ES T Height 170.2 cm (5' 7 ) 12/08/2024 9:50 AM EST Body Mass Index 32.46 12/08/2024 9:50 AM EST Plan of Treatment Upcoming Encounters Date Type Department Care Team (Late st Contact Info) Description 08/04/2025 11:00 AM EDT Office Visit [facility] [address] [place] [address] Can, Abril, OD [address] [place] [address] Health Maintenance Due Date Last Done Comments [...] years 1-dose series) 2016 Mammogram 06/05/2021 06/05/2019 Lipid Panel 01/13/2025 01/14/2024, 04/11/2022 Influenza Vaccine (#1) 2025 12/03/2019 Depression Monitoring 12/02/2025 06/01/2025, 025 Diabetes: Hemoglobin A1C 12/27/2025 025, 12/08/2024, 12/27/2023, Additional history exists Eye Exam 01/29/2026 01/30/2024, 01/03, 01/30/2024, Additional history exists Alcohol/Substance Use Screening 06/01/2026 06/01/2025 SDOH Screening 06/01/2026 06/01/2025 Tobacco Screening 06/01/2026 06/01/2025 Diabetes: Urine Protein Screening 06/26/2026 06/26/2025, 01/14/2024 HIB Vaccines Aged Out No longer eligi ble based on patient's age to complete this topic HPV Vaccines Aged Out No longer eligi ble based on patient's age to complete this topic IPV Vaccines Aged Out No longer eligi ble based on patient's age to complete this topic Meningococcal B Vaccine Aged Out No l onger eligible based on patient's age to complete [...] Procedure Name Priority Date/Time Associated Diagnosis Comments HEMOGLOBIN A1C Routine 06/26/2025 8:55 AM EDT Type 2 diabetes mellitus without complication, without long-term current use of insulin ([facility]) VITAMIN D,25-OH,TOTAL,IA Routine 06/26/2025 8:55 AM EDT Acquired hypothyroidism Vitamin D deficiency COMPREHENSIVE METABOLIC PANEL Routine 06/26/2025 8:55 AM EDT Type 2 diabetes mellitus without complication, without long-term current use of insulin ([facility]) Acquired hypothyroidism T4 (THYROXINE), TOTAL Routine 06/26/2025 8:55 AM EDT Acquired hypothyroidism TSH Routine 06/26/2025 8:55 AM EDT Acquired hypothyroidism T4, FREE Routine 06/26/2025 8:55 AM EDT Acquired hypothyroidism T3, TOTAL Routine 06/26/2025 8:55 AM EDT Acquired hypothyroidism T3, FREE Routine 06/26/2025 8:55 AM EDT Acquired hypothyroidism ALBUMIN, RANDOM URINE W/CREATININE Routine 06/26/2025 8:50 AM EDT Type 2 diabetes mellitus without complication, without long-term current use of insulin ([facility]) LIPID PANEL WITH REFLEX TO DIRECT LDL Routine 01/14/2024 9:18 AM EDT Moderate mixed hyperlipidemia not requiring statin therapy BI MAMMOGRAM SCREENING BILATERAL Routine 06/05/2019 8:24 AM EDT from Last 3 Months or Most Recently Relevant to Health Maintenance Results * (ABNORMAL) Vitamin D, 25-Hydroxy, Total, Immunoassay (06/26/2025 8:55 AM EDT) Vitamin D 25-OH Total 16.0(L) >30 ng/mL [facility] Comment: Health Based Reference Values*< 20 ng/mL Ptbqfoihr40-35 ng/mL Insufficient> 30 ng/mL Sufficient*Kaylee HILLMAN. N Engl J Med. 2007;357:266-280There is no well-established upper level of normal vitamin Dlevels. Some laboratories use 50 ng/mL as an upper limit ofnormal. However, toxicity is patient-dependent and may occurat any level. Careful correlation with the patient'spresentation is necessary and, if there is concern forvitamin D toxicity, treatment should be consideredirrespective of the serum level.Care must be taken in interpreting Vitamin D results fromdifferent laboratories and methodologies. Published datademonstrated that results from patients undergoinghemodialysis may show a negative bias when tested withvarious automated 25-OH vitamin D assays when compared toLC-MS/MS.When testing samples from patients whose predominant form ofVitamin D is Vitamin D2, such as patients receiving VitaminD2 supplementation, results that are subtherapeutic shouldbe confirmed with another method such as LC-MS/MS. Blood 06/26/2025 8:55 AM EDT 06/26/2025 8:55 AM EDT us Susanne Portillo MD LAB BLOOD ORDERABLES Fin al Result Performing Organization Address City/[facility]/ZIP Co de Phone Number [facility] [address] [place] [phone] * T3, Free (06/26/2025 8:55 AM EDT) T3, Free 2.9 2.3 - 4.2 pg/mL [facility] Comment:THIS TEST WAS PERFOR MED AT:[facility] [address] [id number] WASHINGTON MD Blood Venous blood specimen / Unknown 06/26/2025 8:55 AM EDT 06/26/2025 8:55 AM EDT us Susanne Portillo MD LAB BLOOD ORDERABLES Fin al Result [facility] [address] [place] [phone] * T3, Total (06/26/2025 8:55 AM EDT) T3, Total 81 76 - 181 ng/dL [facility] Comment:THIS TEST WAS PERFOR MED AT:[employer] [place] [id number] WASHINGTON MD Blood Venous blood specimen / Unknown 06/26/2025 8:55 AM EDT 06/26/2025 8:55 AM EDT us Susanne Portillo MD LAB BLOOD ORDERABLES Fin al Result Performing Organization Address City/[facility]/ZIP Co de Phone Number [facility] [address] [place] [phone] * TSH (06/26/2025 8:55 AM EDT) Thyroid Stimulating Hormone 1.31 0.32 - 4.0 uIU/mL [facility] Comment:TSH 3rd Generation ( [facility] [facility]) Blood Venous blood specimen / Unknown 06/26/2025 8:55 AM EDT 06/26/2025 8:55 AM EDT us Susanne Portillo MD LAB BLOOD ORDERABLES Fin al Result Performing Organization Address [facility] Co de Phone Number [facility] [address] [place] [phone] * T4, Free (06/26/2025 8:55 AM EDT) Free T4 (Free Thyroxine) 1.03 0.71 - 1.85 ng/dL [facility] Blood Venous blood specimen / Unknown 06/26/2025 8:55 AM EDT 06/26/2025 8:55 AM EDT Susanne Portillo MD LAB BLOOD ORDERABLES Fin al Result Performing Organization Address [facility] Co de Phone Number [facility] [address] [place] [phone] * T4 (Thyroxine), Total (06/26/2025 8:55 AM EDT) T4 Thyroxine 8.2 4.5 - 12.0 ug/dL [facility] Blood Venous blood specimen / Unknown 06/26/2025 8:55 AM EDT 06/26/2025 8:55 AM EDT Susanne Portillo MD LAB BLOOD ORDERABLES Fin al Result Performing Organization Address City/[facility] Co de Phone Number [facility] [address] [place] [phone] * Hemoglobin A1c (06/26/2025 8:55 AM EDT) Hemoglobin A1c 6.0 <6.0 % [facility] Comment:Hemoglobin A1C Refer ence Range Adults: 4.8 - 6.0 % Non diabetic: < 6.0 % Goal: < 7.0 %Additional Action Suggested: > 8.0 %Note: Hemoglobin A1c results are invalid for patients with abnormal amounts of HbF. Blood transfusions may impact the HbA1c concentration in the patient sample. Estimated Average Glucose 126 mg/dL [facility] Comment:eAG = Estimated ave rage glucose which is %A1C expressed asaverage glucose, using the formula of the [id number] Glucose study (ADAG), Diabetes Care, Vol.31,#8,Jun. 2007 Blood Venous blood specimen / Unknown 06/26/2025 8:55 AM EDT 06/26/2025 8:55 AM EDT Susanne Portillo MD LAB BLOOD ORDERABLES Fin al Result Performing Organization Address City/[facility]/ZIP Co de Phone Number [facility] [address] [place] [phone] * (ABNORMAL) Comprehensive Metabolic Panel (06/26/2025 8:55 AM EDT) Sodium 143 135 - 145 mmol/L [facility] Potassium 4.4 3.3 - 5.1 mmol/L [facility] Chloride 112(H) 96 - 108 mmol/L [facility] Carbon Dioxide 27 22 - 29 mmol/L [facility] Anion Gap 8(L) 12 - 20 [facility] Urea Nitrogen (BUN) 16 9 - 16 mg/dL [facility] Creatinine, Serum 0.62 0.5 - 1.4 mg/dL [facility] Estimated Glomerular Filt Rate >60 [facility] Comment:Chronic Kidney Disea se: Estimated GFR < 60 mL/min/1.25c0Pzwafj Kidney Disease: Estimated GFR < 15 mL/min/1.73m2 Glucose 85 60 - 115 mg/dL [facility] Calcium 9.9 8.4 - 10.2 mg/dL [facility] Bilirubin, Total 0.6 0.0 - 1.0 mg/dL [facility] Aspartate Amino Transferase 24 5 - 31 U/L [facility] Alanine Aminotransferase 12 0 - 31 U/L [facility] Total Protein 7.0 6.5 - 8.0 g/dL [facility] Albumin Level 3.7 3.5 - 5.0 g/dL [facility] Alkaline Phosphatase 78 39 - 117 U/L [facility] Blood Venous blood specimen / Unknown 06/26/2025 8:55 AM EDT 06/26/2025 8:55 AM EDT us Susanne Portillo MD LAB BLOOD ORDERABLES Fin al Result [facility] [address] [place] [phone] * Albumin, Random Urine W/Creatinine (06/26/2025 8:50 AM EDT) Creatinine, Urine 198.72 mg/dL [facility] Microalbumin Urine 14.0 mg/L [facility] Microalbum Creatinine Ratio Ur 7.0 <30 ug/mg cr [facility] Comment:Albumin/Creatinine R atio Reference Ranges: Normal: < 30 ug/mg creatinine Microalbuminuria: 30 - 300 ug/mg creatinineClinical Albuminuria: > 300 ug/mg creatinine Urine (Urine, Random) 06/26/2025 8:50 AM EDT 06/26/2025 10:07 AM EDT Susanne Portillo MD LAB URINE ORDERABLES Fin al Result Performing Organization Address City/[facility] Co de Phone Number [facility] [address] [place] [phone] * Lipid Panel with Reflex to Direct LDL (01/14/2024 9:18 AM EDT) Triglycerides 52 <150 mg/dL [facility] Comment:Desirable Triglyceri de: less than 150 mg/dLBorderline High Triglyceride 150-199 mg/dLHigh Triglyceride: 200-499 mg/dLVery High Triglyceride: greater than or equal to 5OO mg/dL Cholesterol 154 <200 mg/dL [facility] Comment:Desirable Cholestero l: less than 200 mg/dLBorderline High Cholesterol: 200-239 mg/dLHigh Cholesterol: greater than 239 mg/dL LDL Cholesterol Calculated 75 <100 mg/dL [facility] Comment:Desirable LDL: less than 100 mg/dLNear Optimal/Above Optimal LDL: 110- 129 mg/dLBorderline High LDL: 130-159 mg/dLHigh LDL: 160-189 mg/dLVery High LDL: greater than or equal to 190 mg/dL HDL Cholesterol 69 >40 mg/dL [facility] Comment:Desirable HDL: great er than 40 mg/dL Note: This HDL assay may give artificially low results in patients with liver disease. Blood 01/14/2024 9:18 AM EDT 01/14/2024 11:06 AM EDT Susanne Portillo MD LAB BLOOD ORDERABLES Fin al Result Performing Organization Address City/[facility]/ZIP Co de Phone Number [facility] [address] [place] [phone] * DIGITAL BILATERAL SCREEN 1 (06/05/2019 8:24 AM EDT) Anatomical Region Laterality Modality Breast Bilateral Mammography 06/05/2019 8:24 AM EDT Narrative 06/05/2019 8:25 AM EDT Refer to the Notes tab for result details [facility] Procedure: DIGITAL BILATERAL SCREEN 1 Procedure Note Provider, MD Jonathan - 01/26/2023 Refer to the Notes tab for result details [facility] Procedure: DIGITAL BILATERAL SCREEN 1 Susanne Portillo MD IMG BI PROCEDURES Final Result from Last 3 Months or Most Recently Relevant to Health Maintenance [place] [address] [place] [address] [employer]ARE Care Teams Server Manager Relationship Specialty Start Date End Date Susanne Portillo MD [address] [place] [phone] PCP - General Family Medicine 06/02/19
--- OUTSIDE RECORDS SUMMARY | 2025-07-13 10:45 | XMS_ITS | Encounter Summary ---
Author Organization [employer] Address [address] [facility] [address] [place] [address] Care Team Providers Care Road Crew Member Name Role Phone Susanne Portillo MD Primary Care Provider + Encounter Details Date Type Department Care Team ([facility] st Contact Info) Description 07/09/2025 Results Follow-Up [facility] [address], [place] [phone] Susanne Portillo MD [address] [place] [address] Albumin, Random Urine W/Creatinine, T3, Free, T3, Total, Additional followed-up results: 6 Social History Tobacco Use Types Packs/Day Years [...] encounter Miscellaneous Notes * Telephone Encounter - Jessica Santoyo RN - 07/09/2025 11:02 AM EDT TC placed to pt. To advise of stable bloodwork results from 06/26/25 aside from low vitamin D level,advised pt. To restart high dose weekly vitamin D supplement x 6 months and to try to get more timein the sun (about 20 min/ day) to improve level. Pt. Verbalizes understanding and will p/up [facility] * Result Encounter Note - Susanne Portillo MD - 07/09/2025 9:22 AM EDT Labs on 06/26/2025 show persistent vitamin D deficient (she has been supplemented last year for a 6-month). Please call patient and tell her to restart vitamin D weekly x 6 months and follow-up with me. Please remind her regarding outdoor exercise, sun exposure documented in this encounter Plan of Treatment Upcoming Encounters Date Type Department Care Team ([facility] st Contact Info) Description 08/04/2025 11:00 AM EDT Office Visit [facility] [address] [facility] [place] [phone] Can, Abril, OD [address] [place], [place] [phone] documented as of this encounter Visit Diagnoses Not on filedocumented in this encounter Additional Health Concerns Assessment Noted Time PHQ-9 Depression Total Score: 9 06/01/20 25 12:15 PM EDT documented as of this encounter Care Teams Road Crew Member Relationship Specialty Start Date End Date Susanne Portillo MD [address] [place] [address] PCP - General Family Medicine 06/02/19 documented as of this encounter
--- OUTSIDE RECORDS SUMMARY | 2025-07-13 10:45 | XMS_ITS | Encounter Summary ---
Author Organization [employer] Address [address] [facility] 7t [place] [address] Care Team Providers Care Internal Medicine Nurse Practitioner Name Role Phone Susanne Portillo MD Primary Care Provider + Reason for Visit * Reason Comments Med Refill Encounter Details Date Type Department Care Team ([facility] st Contact Info) Description 04/09/2024 Refill [facility]INE [address] [place], [place] [phone] Susanne Portillo MD 230 [place], [place] [phone] Type 2 diabetes mellitus without complication, without long-term current use of insulin ([facility]) Social History Tobacco Use Types Packs/Day Years [...] Description 08/04/2025 11:00 AM EDT Office Visit [facility] OPTOMETRY [address] [place] [address] Abril North, OD 230 [place] [address] documented as of this encounter Visit Diagnoses Diagnosis Type 2 diabetes mellitus without complication, without long-term current use of insulin ([facility]) documented in this encounter Additional Health Concerns Assessment Noted Time PHQ-9 Depression Total Score: 2 12/27/19 24 12:05 PM EST documented as of this encounter Care Teams Internal Medicine Nurse Practitioner Relationship Specialty Start Date End Date Susanne Portillo MD 230 [place] [address] PCP - General Family Medicine 06/02/19 documented as of this encounter
--- OUTSIDE RECORDS SUMMARY | 2025-07-13 10:45 | XMS_ITS | Encounter Summary ---
Author Organization [employer] Address [address] [facility] 7t [place] [address] Care Team Providers Care Stone Chimney Mason Name Role Phone Susanne Portillo MD Primary Care Provider + Reason for Visit * Reason Onset Date Comments Med Refill 04/09/2024 Encounter Details Date Type Department Care Team ([facility] st Contact Info) Description 04/09/2024 Telephone [facility] MEDICINE 230 [place], [place] [phone] Susanne Portillo MD 230 [place], [place] [phone] Med Refill Social History Tobacco Use Types [...] 10:57 AM EDT Medication was sent to [facility] #[id number] on 01/21/24 #12 with 1 refill. * Telephone Encounter - Verona Rodriguez - 04/09/2024 10:55 AM EDT TC from pt requesting medication refill. Medications needing refill : ergocalciferol (Vitamin D2) 1.25 MG (24012 UT) capsule To be sent to: [facility] #[id number] [place] [address] [address] [facility] documented in this encounter Plan of Treatment Upcoming Encounters Date Type Department Care Team (Late st Contact Info) Description 08/04/2025 11:00 AM EDT Office Visit [facility] OPTOMETRY [address] [place], [place] [phone] Abril North, OD [address] [place] [address] documented as of this encounter Visit Diagnoses Not on filedocumented in this encounter Additional Health Concerns Assessment Noted Time PHQ-9 Depression Total Score: 2 02/23/20 24 12:05 PM EST documented as of this encounter Care Teams Stone Chimney Mason Relationship Specialty Start Date End Date Susanne Portillo MD [address] [place] [address] PCP - General Family Medicine 06/02/19 documented as of this encounter
--- OUTSIDE RECORDS SUMMARY | 2025-07-13 10:45 | XMS_ITS | Encounter Summary ---
Author Organization [employer] Address 75 [facility] 7t [place] [address] Care Team Providers Care Elevator Serviceman Name Role Phone Susanne Portillo MD Primary Care Provider + Encounter Details Date Type Department Care Team ([facility] st Contact Info) Description 05/04/2024 Telephone [facility] MEDICINE 230 [place], [place] [phone] Susanne Portillo MD 230 [place], [place] [phone] Social History Tobacco Use Types Packs/Day Years [...] - 05/04/2024 10:46 AM EDT Tc from [facility] with [facility] requesting a call back regarding a cpap script they received. States needs chart note and to why pt had to get sleep studies done. Please call phone # [phone] for clarification. documented in this encounter Plan of Treatment Upcoming Encounters Date Type Department Care Team (Late st Contact Info) Description 08/04/2025 11:00 AM EDT Office Visit [facility] OPTOMETRY [address] [place] [address] Can, Abril, OD 230 [place] [address] documented as of this encounter Visit Diagnoses Not on filedocumented in this encounter Additional Health Concerns Assessment Noted Time PHQ-9 Depression Total Score: 2 12/27/19 24 12:05 PM EST documented as of this encounter Care Teams Elevator Serviceman Relationship Specialty Start Date End Date Susanne Portillo MD 230 [place] [address] PCP - General Family Medicine 06/02/19 documented as of this encounter
--- OUTSIDE RECORDS SUMMARY | 2025-07-13 10:46 | XMS_ITS | Encounter Summary ---
Author Organization [employer] Address 75 [facility] 7t [place] [address] Care Team Providers Care Cemetery Manager Name Role Phone Susanne Portillo MD Primary Care Provider + Reason for Visit * Reason Onset Date Comments Med Refill 11/12/2024 Encounter Details Date Type Department Care Team ([facility] st Contact Info) Description 11/12/2024 Refill [facility] MEDICINE 230 [place], [place] [phone] Susanne Portillo MD 230 [place] [address] Primary biliary cholangitis (CMS/HCC) Social History Tobacco [...] enough money to get more: Never True 02/ Transportation Answer Date Recorded In the past [...] Description 08/04/2025 11:00 AM EDT Office Visit [facility] OPTOMETRY [address] [place] [address] Abril North, OD 230 [place] [address] documented as of this encounter Visit Diagnoses Diagnosis Primary biliary cholangitis (CMS/HCC) documented in this encounter Additional Health Concerns Assessment Noted Time PHQ-9 Depression Total Score: 12 024 3:45 PM EDT documented as of this encounter Care Teams Cemetery Manager Relationship Specialty Start Date End Date Susanne Portillo MD [address] [place] [address] PCP - General Family Medicine 06/02/19 documented as of this encounter
--- OUTSIDE RECORDS SUMMARY | 2025-07-13 10:46 | XMS_ITS | Encounter Summary ---
Author Organization [employer] Address 75 [facility] 7t [place] [address] Care Team Providers Care Stonehand Name Role Phone Susanne Portillo MD Primary Care Provider + Reason for Visit * Reason Onset Date Comments Med Refill 11/14/2024 Encounter Details Date Type Department Care Team ([facility] st Contact Info) Description 11/14/2024 Refill [facility] MEDICINE 230 [place], [place] [phone] Susanne Portillo MD 230 [place] [address] Social History Tobacco Use Types Packs/Day Years [...] Description 08/04/2025 11:00 AM EDT Office Visit [facility] OPTOMETRY [address] [place], [place] [phone] Abril North, OD 230 [place] [address] documented as of this encounter Visit Diagnoses Not on filedocumented in this encounter Additional Health Concerns Assessment Noted Time PHQ-9 Depression Total Score: 12 024 3:45 PM EDT documented as of this encounter Care Teams Stonehand Relationship Specialty Start Date End Date Susanne Portillo MD 230 [place] [address] PCP - General Family Medicine 06/02/19 documented as of this encounter
== END 2025-07-13 09:21 | disposition home or self-care (01) ==
LOC: HO.US 09:20
PROVIDERS: PCP Internal Medicine; Visit Provider Internal Medicine
DX: K74.3 Primary biliary cirrhosis (principal)
CPT/HCPCS: 76700

== ENCOUNTER → 2025-07-13 09:22 | Outpatient (BNV) | payer MEDICARE, MEDICAID, SELFPAY | PROVIDERS: PCP Internal Medicine; Visit Provider Student in an Organized Health Care Education/Training Program | DX: K74.3 Primary biliary cirrhosis (principal); N28.1 Cyst of kidney, acquired | CPT/HCPCS: 76700 ==

== ENCOUNTER 2025-07-14 15:34 | Outpatient (AMB) | payer MEDICARE, MEDICAID, SELFPAY ==
--- NOTE | 2025-07-14 15:36 | A.OFFVIS_ITS ---
Vital Signs 07/14/25 15:41 Height 5 ft 5 in Weight 205 lb 0.478 oz BMI 34.1 BP 100/56 L Blood Pressure Location Lt brachial Position Sitting Pulse 64 Intake Visit Reasons: 6 mo f/u PBC/AIH r/s From 05/17/25 Intake Note: Clarita presents in the office as a 6 month follow up. CC: She states that her weight is an issue and she states she has cut a lot out of her diet. She does exercises. She states her hair is coming out and she is very tired. Her nails are weak she said this is all new to her. 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 02/24/24: Pt reports getting leg swelling around 4 years ago which led to testing that established the diagnosis of PBC. Was seeing Dr Manish Barraza at [facility]. Also reports getting a biopsy. Per PCP notes: interface hepatitis 3/4 and lobular activity 2/4. However reports progression to cirrhosis in 2021. Based on bx. Current medications: - Azathioprine 50/day - Court 300 TID - Folic acid 1mg - Lactulose 10mg once a day Last EGD in Nov 13 2023 in [facility] - report reviewed - no esophageal varices, but small fundal varices in stomach without red sonja signs. having small varices. Started on carvedilol once a day. Last US also in Nov 2023 in [facility] - no changes, repeat recommended in 6 months. 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 06/15/24: No acute issues. No change in meds. Labs reviewed. Pt aware to reach out to her PCP for endocrine referral for osteopenia. Taking Vit D supplement. 11/18/24: Here for routine follow up. Seen with in person seconds inspector Kiet. Reports dizziness and headaches - has sensation of feeling forward. Lasts for a few seconds. Started almost a month ago and occuring may be once a week. Headache is diffuse and not assoc with vision changes or tinnitus. Has not been seen by PCP for this yet. Pt also had parathyroid testing in [facility] and PTH was high. Awaiting to see PCP for this. From liver standpoint, no abd pain, NJagjit. Ran out of her meds almost 4 days ago and needs refills. Requests to reduce lactulose dose as it causes significant bloating and cramping without any BMs. 07/14/25: Here for follow up. Reports did not tolerate rifaximin well as it caused abd pain. Would rather revert to lactulose. Also has been gaining weight despite following a low carb diet. PTH was high when checked back in [facility] in 2023, will order recheck. In terms of liver, has been feeling at baseline. Ultrasound from yest reviewed, no liver mass. Due for EGD/colo, will see if can get scheduled today. Current meds: - Azathioprine 50/day - Court 300 TID - Carvedilol 6.25 BID - Folic acid 1mg - Rifaximin 550 BID - Lactulose 10mg once a day PFSH Surgical History Hx of colonoscopy H/O section Hx of appendectomy Social History Household Members Other:: sister Housing: House Alcohol intake: current Alcohol intake frequency: a few times a month Patient Tobacco Use Status: Former Tobacco user Review of Systems Const All systems reviewed & are unremarkable except as noted in HPI and below Physical Exam Vital Signs: Last Vital Signs Pulse 64 07/14/25 15:41 BP 100/56 L 07/14/25 15:41 BMI result Body Mass Index 34.1 Assessment & Plan Assessment & Plan (1) Headache: Code(s): R51.9 - Headache, unspecified Category: Medical (2) Osteopenia: Code(s): M85.80 - Other specified disorders of bone density and structure, unspecified site Category: Medical (3) Hepatic osteodystrophy: Code(s): Q78.9 - Osteochondrodysplasia, unspecified Category: Medical (4) Primary biliary cholangitis: Code(s): K74.3 - Primary biliary cirrhosis Category: Medical (5) Autoimmune hepatitis: Code(s): K75.4 - Autoimmune hepatitis Category: Medical Plan 1. 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 Cont on Azathioprine [address] Pt was unable to tolerate rifaximin. Has too much bloating with lactulose, reviewed alternating lactulose and PEG. Also has cholestasis related osteopenia, however due to ? hyperparathyroidism, will check PTH. Plan: - Cont Azathioprine [address] - Cholestasis - due for ADEK check. - osteopenia on dexa. Endocrine follow up pending. PTH ordered as well. - due for cholesterol check - varices: Due for EGD for variceal screening. Cont coreg 6.25 BID. - HCC screening: US Abd from 07/13 reviewed. Next due in January 2026. Reminder set. - HE - has known splenorenal shunt. DC rifaximin due to intolerance. Cont lactulose BID, add PEG once daily. goal BM 2-3 per day. - Due for colo for screening - can be jeffrey with the EGD see above. PEG instructions reviewed with the help of environmental protection inspector. - Follow up 6 months 2. Headache: Myofascial based on description. MRI brain ok. Plan: - Heat application - Muscle relaxant in PM - OK to take tylenol. Avoid NSAIDs Follow up 6 months Orders: Orders Parathyroid Hormone Intact Today M85.80 - Other specified disorders of bone density and structure, unspecified site Vitamin D 1,25 dihydroxy Today K74.3 - Primary biliary cirrhosis Prothrombin Time INR Today K74.3 - Primary biliary cirrhosis Vitamin A Today K74.3 - Primary biliary cirrhosis Vitamin E Today K74.3 - Primary biliary cirrhosis Lipid Panel Today K74.3 - Primary biliary cirrhosis Medications: New peg 3350-electrolytes 236-22.74-6.74 -5.86 gram (Golytely) as per split prep instructions, until fecal effluent is clear 240 mL PO Q10M 4,000 mL 0RF colonoscopy cyclobenzaprine 7.5 mg PO BEDTIME 10 tabs 0RF 10 days Coding Level of Care Code Est Pt Level 5 (26858) Complex EM visit Add On G2211 Diagnoses Headache R51.9 Osteopenia M85.80 Hepatic osteodystrophy Q78.9 Primary biliary cholangitis K74.3 Autoimmune hepatitis K75.4
[2025-07-14 15:41] VITALS: BP 100/56; PULSE 64; BMI 34.1
--- OUTSIDE RECORDS SUMMARY | 2025-07-14 18:25 | XMS_ITS | Encounter Summary ---
Author Organization [employer] Address [address] [facility] 7t [place] [address] Care Team Providers Care Restaurant Hospitality Manager Name Role Phone Susanne Portillo MD Primary Care Provider + Encounter Details Date Type Department Care Team ([facility] st Contact Info) Description 07/09/2025 Results Follow-Up [facility] MEDICINE 230 [place], [place] [phone] Susanne Portillo MD 230 [place] [address] Albumin, Random Urine W/Creatinine, T3, Free, T3, [...] Pt. Verbalizes understanding and will p/up from [facility] * Result Encounter Note - Susanne Portillo [...] Upcoming Encounters Date Type Department Care Team ([facility] st Contact Info) Description 08/04/2025 11:00 AM EDT [facility] Visit [facility] [address] [facility] [place] [phone] Can, Abril, OD 230 [place], [place] [phone] documented as of this encounter Visit Diagnoses Not on filedocumented in this encounter Additional Health Concerns Assessment Noted Time PHQ-9 Depression Total Score: 9 06/01/20 25 12:15 PM EDT documented as of this encounter Care Teams Restaurant Hospitality Manager Relationship Specialty Start Date End Date Susanne Portillo MD [address] [place] [address] PCP - General Family Medicine 06/02/19 documented as of this encounter
--- OUTSIDE RECORDS SUMMARY | 2025-07-14 18:25 | XMS_ITS | Encounter Summary ---
Author Organization [employer] Address 75 [facility] 7t [place] [address] Care Team Providers Care Refiner Operator Name Role Phone Susanne Portillo MD Primary Care Provider + Reason for Visit * Reason Onset Date Comments Med Refill 07/21/2024 Encounter Details Date Type Department Care Team ([facility] st Contact Info) Description 07/21/2024 Refill [facility] MEDICINE 230 [place], [place] [phone] Susanne Portillo MD 230 [place] [address] Social History Tobacco Use Types Packs/Day Years [...] Office Visit [facility] OPTOMETRY [address] [place], [place] [phone] Abril North, OD [address] [place] [address] documented as of this encounter Visit Diagnoses Not on filedocumented in this encounter Additional Health Concerns Assessment Noted Time PHQ-9 Depression Total Score: 12 024 3:45 PM EDT documented as of this encounter Care Teams Refiner Operator Relationship Specialty Start Date End Date Susanne Portillo MD 230 [place] [address] PCP - General Family Medicine 06/02/19 documented as of this encounter
--- OUTSIDE RECORDS SUMMARY | 2025-07-14 18:25 | XMS_ITS | Encounter Summary ---
Author Organization [employer] Address 75 [facility] 7t [place] [address] Care Team Providers Care Vibrator Operator Name Role Phone Susanne Portillo MD Primary Care Provider + Reason for Visit * Reason Onset Date Comments Med Refill 11/14/2024 Encounter Details Date Type Department Care Team ([facility] st Contact Info) Description 11/14/2024 Refill [facility] 230 [place], [place] [phone] Susanne Portillo MD 230 [place] [address] Social History Tobacco Use Types Packs/Day Years [...] Description 08/04/2025 11:00 AM EDT Office Visit [facility] OPT[facility]RY [address] [place], [place] [phone] Abril North, OD 230 [place] [address] documented as of this encounter Visit Diagnoses Not on filedocumented in this encounter Additional Health Concerns Assessment Noted Time PHQ-9 Depression Total Score: 12 024 3:45 PM EDT documented as of this encounter Care Teams Vibrator Operator Relationship Specialty Start Date End Date Susanne Portillo MD 230 [place] [address] PCP - General Family Medicine 06/02/19 documented as of this encounter
--- OUTSIDE RECORDS SUMMARY | 2025-07-14 18:25 | XMS_ITS | Encounter Summary ---
Author Organization [employer] Address 75 [facility] 7t [place] [address] Care Team Providers Care Director Of Conservation Name Role Phone Susanne Portillo MD Primary Care Provider + Reason for Visit * Reason Onset Date Comments Med Refill 04/09/2024 Encounter Details Date Type Department Care Team ([facility] st Contact Info) Description 04/09/2024 Telephone [facility] MEDICINE 230 [place], [place] [phone] Susanne Portillo MD [address] [place], [place] [phone] Med Refill Social History Tobacco Use Types [...] 10:57 AM EDT Medication was sent to [facility] #[id number] on 01/21/24 #12 with 1 refill. * Telephone Encounter - Verona Rodriguez - 04/09/2024 10:55 AM EDT TC from pt requesting medication refill. Medications needing refill : ergocalciferol (Vitamin D2) 1.25 MG (53121 UT) capsule To be sent to: [facility] #[id number] [place] [address] [address] [facility] documented in this encounter Plan of Treatment Upcoming Encounters Date Type Department Care Team (Late st Contact Info) Description 08/04/2025 11:00 AM EDT Office Visit [facility] OPTOMETRY [address] [place], [place] [phone] Abril North, OD [address] [place] [address] documented as of this encounter Visit Diagnoses Not on filedocumented in this encounter Additional Health Concerns Assessment Noted Time PHQ-9 Depression Total Score: 2 02/23/20 24 12:05 PM EST documented as of this encounter Care Teams Director Of Conservation Relationship Specialty Start Date End Date Susanne Portillo MD [address] [place] [address] PCP - General Family Medicine 06/02/19 documented as of this encounter
--- OUTSIDE RECORDS SUMMARY | 2025-07-14 18:25 | XMS_ITS | Encounter Summary ---
Author Organization [employer] Address [address] [facility] 7t [place] [address] Care Team Providers Care Casing Puller Name Role Phone Susanne Portillo MD Primary Care Provider + Reason for Visit * Reason Comments Med Refill Encounter Details Date Type Department Care Team ([facility] st Contact Info) Description 03/29/2024 Refill [facility] MEDICINE 230 [place], [place] [phone] Susanne Portillo MD 230 [place], [place] [phone] Social History Tobacco Use Types Packs/Day Years [...] Description 08/04/2025 11:00 AM EDT Office Visit [facility] OPTOMETRY [address] [place] [address] Can, Abril, OD 230 [place] [address] documented as of this encounter Visit Diagnoses Not on filedocumented in this encounter Additional Health Concerns Assessment Noted Time PHQ-9 Depression Total Score: 2 12/27/19 24 12:05 PM EST documented as of this encounter Care Teams Casing Puller Relationship Specialty Start Date End Date Susanne Portillo MD [address] [place] [address] PCP - General Family Medicine 06/02/19 documented as of this encounter
--- OUTSIDE RECORDS SUMMARY | 2025-07-14 18:25 | XMS_ITS | Encounter Summary ---
Author Organization [employer] Address 75 [facility] 7t [place] [address] Care Team Providers Care Powerhouse Laborer Name Role Phone Susanne Portillo MD Primary Care Provider + Reason for Visit * Reason Comments Med Refill Encounter Details Date Type Department Care Team ([facility] st Contact Info) Description 04/09/2024 Refill [facility] MEDICINE 230 [place], [place] [phone] Susanne Portillo MD 230 [place], [place] [phone] Type 2 diabetes mellitus without complication, without long-term current use of insulin ([facility]) Social History Tobacco Use Types [...] 08/04/2025 11:00 AM EDT Office Visit [facility] OPTOMETRY [address] [place] [address] Abril North, OD 230 [place] [address] documented as of this encounter Visit Diagnoses Diagnosis Type 2 diabetes mellitus without complication, without long-term current use of insulin ([facility]) documented in this encounter Additional Health Concerns Assessment Noted Time PHQ-9 Depression Total Score: 2 12/27/19 24 12:05 PM EST documented as of this encounter Care Teams Powerhouse Laborer Relationship Specialty Start Date End Date Susanne Portillo MD [address] [place] [address] PCP - General Family Medicine 06/02/19 documented as of this encounter
--- OUTSIDE RECORDS SUMMARY | 2025-07-14 18:25 | XMS_ITS | Encounter Summary ---
Author Organization [employer] Address 75 [facility] 7t [place] [address] Care Team Providers Care Pole Shaver Helper Name Role Phone Susanne Portillo MD Primary Care Provider + Reason for Visit * Reason Onset Date Comments Med Refill 11/12/2024 Encounter Details Date Type Department Care Team ([facility] st Contact Info) Description 11/12/2024 Refill [facility] MEDICINE 230 [place], [place] [phone] Susanne Portillo MD 230 [place] [address] Primary biliary cholangitis (CMS/HCC) Social History Tobacco [...] Description 08/04/2025 11:00 AM EDT Office Visit [facility] OPTOMETRY [address] [place] [address] Abril North, OD 230 [place] [address] documented as of this encounter Visit Diagnoses Diagnosis Primary biliary cholangitis (CMS/HCC) documented in this encounter Additional Health Concerns Assessment Noted Time PHQ-9 Depression Total Score: 12 024 3:45 PM EDT documented as of this encounter Care Teams Pole Shaver Helper Relationship Specialty Start Date End Date Susanne Portillo MD 230 [place] [address] PCP - General Family Medicine 06/02/19 documented as of this encounter
--- OUTSIDE RECORDS SUMMARY | 2025-07-14 18:25 | XMS_ITS | Encounter Summary ---
Author Organization [employer] Address [address] [facility] 7t [place] [address] Care Team Providers Care Wire Sawyer Name Role Phone Susanne Portillo MD Primary Care Provider + Encounter Details Date Type Department Care Team ([facility] st Contact Info) Description 05/04/2024 Telephone [facility] [address] [place], [place] [phone] Susanne Portillo MD [address] [place], [place] [phone] Social History Tobacco Use Types Packs/Day Years [...] sleep studies done. Please call phone # [phone] for clarification. documented in this encounter Plan of Treatment Upcoming Encounters Date Type Department Care Team (Late st Contact Info) Description 08/04/2025 11:00 AM EDT Office Visit [facility] [address] [place] [address] Can, Abril, OD [address] [place] [address] documented as of this encounter Visit Diagnoses Not on filedocumented in this encounter Additional Health Concerns Assessment Noted Time PHQ-9 Depression Total Score: 2 12/27/19 24 12:05 PM EST documented as of this encounter Care Teams Wire Sawyer Relationship Specialty Start Date End Date Susanne Portillo MD [address] [place] [address] PCP - General Family Medicine 06/02/19 documented as of this encounter
--- OUTSIDE RECORDS SUMMARY | 2025-07-14 18:25 | XMS_ITS | Clinical Summary ---
Author Organization [employer] Address [address] [facility] 7t [place] [address] Care Team Providers Care Geochemical Laboratory Technician Name Role Phone Susanne Portillo MD [...] 25 Active ergocalciferol (Vitamin D2) 1.25 MG (39766 UT) capsule Take 1 capsule (1.25 mg) [...] sleep apnea) 04/26/2024 Overview (04/26/2024): Sleep 04/01/24 [facility] htal. Auto CPAP 8-20 cm H2O Assessment & Plan (12/08/2024 2:45 PM EST): Pt is not tolerating CPAP properly with too much pressure on her face and ? Air blowing out of the mask (air leak?). I spoke with Josefina from [facility] ([place] [facility] [phone]) who will send Resp Therapist to fu [...] exercise, life style modifications, diet, referral to cam specialist. Discussed re lower calorie intake, increase [...] to bring note from her hepatology in [facility], she will bring up the topic of [...] meals. -Check fgstk 1x/ daily. Refr to post manager. -Encouraged physical activity as tolerated. -FU in 1 months. Encounters * This document contains information received from the source organization and may not represent a complete record from that organization. Date Type Department Care Team Description 07/13/2025 Orders Only [facility] External Provider, [facility] 07/09/2025 Results Follow-Up [facility] [address] [place] [address] Susanne Portillo MD Albumin, Random Urine W/Creatinine, T3, Free, T3, Total, Additional followed-up results: 6 06/22/2025 Refill [facility] [address] [place] [address] Susanne Portillo MD Type 2 diabetes mellitus without complication, without long-term current use of insulin ([facility]) 06/01/2025 12:00 PM EDT Telemedicine [facility] [address] [place] [address] Susanne Portillo MD Type 2 diabetes mellitus without complication, without long-term current use of insulin (CMS/HCC) (Primary Dx); Moderate episode of recurrent major depressive disorder (CMS/HCC); Primary biliary cholangitis (CMS/HCC); Acquired hypothyroidism; Vitamin D deficiency 06/01/2025 Travel 05/28/2025 Telephone [facility] [address] [place] [address] Susanne Portillo MD chart prep 04/19/2025 Telephone [facility] [address] [place] [address] Susanne Portillo MD telephone call from Last 3 Months Immunizations Immunization Administration [...] your housing situation today? I have ann marieadeline cuellar 06/01/[address] you [...] 08/04/2025 11:00 AM EDT Office Visit [facility] [address] [place] [address] Can, Abril, OD [address] [place] [address] Health Maintenance Due Date Last Done Comments [...] Procedure Name Priority Date/Time Associated Diagnosis Comments US ABDOMEN COMPLETE Routine 07/13/2025 8 :24 PM EDT HEMOGLOBIN A1C Routine 06/26/2025 8:55 AM EDT Type 2 diabetes mellitus without complication, without long-term current use of insulin ([facility]) VITAMIN D,25-OH,TOTAL,IA Routine 06/26/2025 8:55 AM EDT Acquired hypothyroidism Vitamin D deficiency COMPREHENSIVE METABOLIC PANEL Routine 06/26/2025 8:55 AM EDT Type 2 diabetes mellitus without complication, without long-term current use of insulin (CMS/HCC) Acquired hypothyroidism T4 (THYROXINE), TOTAL Routine 06/26/2025 [...] without long-term current use of insulin ([facility]) LIPID PANEL WITH REFLEX TO DIRECT LDL Routine 01/14/2024 9:18 AM EDT Moderate mixed hyperlipidemia not requiring statin therapy BI MAMMOGRAM SCREENING BILATERAL Routine 06/05/2019 8:24 AM EDT from Last 3 Months or Most Recently Relevant to Health Maintenance Results * US Abdomen Complete (07/13/2025 8:24 PM EDT) Anatomical Region Laterality Modality Abdomen Ultrasound 07/13/2025 8:24 PM EDT Narrative 07/13/2025 8:26 PM EDT [address] [address] Ultrasound Report Signed Patient: Clarita Forde MR #: [id number] : 1955 Acct:[id number] Age/Sex: 70 / F ADM Date: 07/13/25 Loc: HO.US Attending Dr: Edyta Rueda MD Ordering Physician: Edyta Rueda MD Date of Service: 07/13/25 Procedure(s): US abdomen complete Accession Number(s): [id number] cc: Susanne Portillo MD; Edyta Rueda MD Reason for Exam: K74.3 - Primary biliary cirrhosis CLINICAL HISTORY: K74.3 - Primary biliary cirrhosis US abdomen complete Comparison: US/MI - US ABDOMEN COMPLETE - 11/09/2024 08:13 AM EST Findings: The visualized pancreas is normal. The aorta and inferior vena cava are normal caliber. The liver is atrophic coarse and nodular in contour. There is no intrahepatic bile duct dilatation. The common duct is 5 mm in diameter. The gallbladder is normal. There is no sonographic Persaud sign. The main portal vein is antegrade. The right kidney is 9.2 cm in length. The left kidney is 11.0 cm in length. 1.0 cm lower pole cyst. The spleen is normal. No ascites. IMPRESSION: 1. Atrophic liver with coarse echogenicity and nodular contour consistent with sequelae of hepatic cirrhosis. 2. Left kidney lower pole 1 cm cyst. This document has been electronically signed by: Spenser Foley MD on 07/13/2025 20:24:56 Dictated By: Spenser Foley MD Signed By: <Electronically signed by Spenser Foley MD in OV> 07/13/252025 DD/ 23 TD/TT: 07/13/252023 Factory Supervisor: Procedure Note Donotuseinterpreter, Image - 07/13/2025 [place] [address] Ultrasound Report Signed Patient: Clarita Forde [facility] #: [id number] : 1955cct:[id number] Age/Sex: 70 / FADM Date: 07/13/25 Loc: HO.US Attending Dr: Edyta Rueda MD Ordering Physician: Edyta Rueda MD Date of Service: 07/13/25 Procedure(s): US abdomen complete Accession Number(s): [id number] cc: Susanne Portillo MD; Edyta Rueda MD Reason for Exam: K74.3 - Primary biliary cirrhosis CLINICAL HISTORY: K74.3 - Primary biliary cirrhosis US abdomen complete Comparison: US/MI - US ABDOMEN COMPLETE - 11/09/2024 08:13 AM EST Findings: The visualized pancreas is normal. The aorta and inferior vena cava are normal caliber. The liver is atrophic coarse and nodular in contour. There is no intrahepatic bile duct dilatation. The common duct is 5 mm in diameter. The gallbladder is normal. There is no sonographic Persaud sign. The main portal vein is antegrade. The right kidney is 9.2 cm in length. The left kidney is 11.0 cm in length. 1.0 cm lower pole cyst. The spleen is normal. No ascites. IMPRESSION: 1. Atrophic liver with coarse echogenicity and nodular contour consistent with sequelae of hepatic cirrhosis. 2. Left kidney lower pole 1 cm cyst. This document has been electronically signed by: Spenser Foley MD on 07/13/2025 20:24:56 Dictated By: Spenser Foley MD Signed By: <Electronically signed by Spenser Foley MD in OV> 07/13/252025 DD/ 23 TD/TT: 07/13/252023 Factory Supervisor: [facility] External Provider IMG US PROCEDURES Edited Result - Final * (ABNORMAL) Vitamin D, 25-Hydroxy, Total, Immunoassay (06/26/2025 8:55 AM EDT) Vitamin D 25-OH Total 16.0(L) >30 ng/mL [facility] Comment: Health Based Reference Values*< 20 ng/mL Tfjbplipi28-36 ng/mL Insufficient> 30 ng/mL Sufficient*Kaylee HILLMAN. N [...] ORDERABLES Fin al Result Performing Organization Address [facility] Co de Phone Number [facility] [address] [place] [phone] * T3, Free (06/26/2025 8:55 AM EDT) T3, Free 2.9 2.3 - 4.2 pg/mL [facility] Comment:THIS TEST WAS PERFOR MED AT:[email or web address] [place] [email or web address] WASHINGTON MD Blood Venous blood specimen / Unknown 06/26/2025 8:55 AM EDT 06/26/2025 8:55 AM EDT us Susanne Portillo MD LAB BLOOD ORDERABLES Fin al Result Performing Organization Address [facility] Co de Phone Number [facility] [address] [place] [phone] * T3, Total (06/26/2025 8:55 AM EDT) T3, Total 81 76 - 181 ng/dL [facility] Comment:THIS TEST WAS PERFOR MED AT:[employer] [address] [place] [address]HJTFFALKA WASHINGTON MD Blood Venous blood specimen / Unknown 06/26/2025 8:55 AM EDT 06/26/2025 8:55 AM EDT Susanne Portillo MD LAB BLOOD ORDERABLES Fin al Result Performing Organization Address [facility] de Phone Number [facility] [address] [place] [phone] * TSH (06/26/2025 8:55 AM EDT) Thyroid Stimulating Hormone 1.31 0.32 - 4.0 uIU/mL [facility] Comment:TSH 3rd Generation ( [employer]) Blood Venous blood specimen / Unknown 06/26/2025 8:55 AM EDT 06/26/2025 8:55 AM EDT Susanne Portillo MD LAB BLOOD ORDERABLES Fin al Result Performing Organization Address [facility] Phone Number [facility] [address] [place] [phone] * T4, Free (06/26/2025 8:55 AM EDT) Free T4 (Free Thyroxine) 1.03 0.71 - 1.85 ng/dL [facility] Blood Venous blood specimen / Unknown 06/26/2025 8:55 AM EDT 06/26/2025 8:55 AM EDT Susanne Portillo MD LAB BLOOD ORDERABLES Fin al Result Performing Organization Address [facility] de Phone Number [facility] [address] [place] [phone] * T4 (Thyroxine), Total (06/26/2025 8:55 AM EDT) T4 Thyroxine 8.2 4.5 - 12.0 ug/dL [facility] Blood Venous blood specimen / Unknown 06/26/2025 8:55 AM EDT 06/26/2025 8:55 AM EDT us Susanne Portillo MD LAB BLOOD ORDERABLES Fin al Result Performing Organization Address [facility] Co de Phone Number [facility] [address] [place] [phone] * Hemoglobin A1c (06/26/2025 8:55 AM EDT) Hemoglobin A1c 6.0 <6.0 % [facility] Comment:Hemoglobin A1C Refer ence Range Adults: 4.8 - 6.0 % Non diabetic: < 6.0 % Goal: < 7.0 %Additional Action Suggested: > 8.0 %Note: Hemoglobin A1c results are invalid for patients with abnormal amounts of HbF. Blood transfusions may impact the HbA1c concentration in the patient sample. Estimated Average Glucose 126 mg/dL [facility] Comment:eAG = Estimated ave rage glucose which is %A1C expressed asaverage glucose, using the formula of the T3O-McqhsqlYapmvqw Glucose study (ADAG), Diabetes Care, Vol.31,#8,Jun. 2007 Blood Venous blood specimen / Unknown 06/26/2025 8:55 AM EDT 06/26/2025 8:55 AM EDT us Susanne Portillo MD LAB BLOOD ORDERABLES Fin al Result Performing Organization Address [facility] Co de Phone Number [facility] [address] [place] [phone] * (ABNORMAL) Comprehensive Metabolic Panel (06/26/2025 8:55 AM EDT) Sodium 143 135 - 145 mmol/L [facility] Potassium 4.4 3.3 - 5.1 mmol/L [facility] Chloride 112(H) 96 - 108 mmol/L [facility] Carbon Dioxide 27 22 - 29 mmol/L [facility] Anion Gap 8(L) 12 - 20 [facility] Urea Nitrogen (BUN) 16 9 - 16 mg/dL [facility] Creatinine, Serum 0.62 0.5 - 1.4 mg/dL [facility] Estimated Glomerular Filt Rate >60 [facility] Comment:Chronic Kidney Disea se: Estimated GFR < 60 mL/min/1.86b9Nbfams Kidney Disease: Estimated GFR < 15 mL/min/1.73m2 Glucose 85 60 - 115 mg/dL [facility] Calcium 9.9 8.4 - 10.2 mg/dL [facility] Bilirubin, Total 0.6 0.0 - 1.0 mg/dL [facility] Aspartate Amino Transferase 24 5 - 31 U/L [facility] Alanine Aminotransferase 12 0 - 31 U/L [facility] Total Protein 7.0 6.5 - 8.0 g/dL [facility] Albumin Level 3.7 3.5 - 5.0 g/dL [facility] Alkaline Phosphatase 78 39 - 117 U/L [facility] Blood Venous blood specimen / Unknown 06/26/2025 8:55 AM EDT 06/26/2025 8:55 AM EDT us Susanne Portillo MD LAB BLOOD ORDERABLES Fin al Result Performing Organization Address City/State/[facility] Co de Phone Number [facility] [address] [place] [phone] * Albumin, Random Urine W/Creatinine (06/26/2025 8:50 AM EDT) Creatinine, Urine 198.72 mg/dL [facility] Microalbumin Urine 14.0 mg/L [facility] Microalbum Creatinine Ratio Ur 7.0 <30 ug/mg cr [facility] Comment:Albumin/Creatinine R atio Reference Ranges: Normal: < 30 ug/mg creatinine Microalbuminuria: 30 - 300 ug/mg creatinineClinical Albuminuria: > 300 ug/mg creatinine Urine (Urine, Random) 06/26/2025 8:50 AM EDT 06/26/2025 10:07 AM EDT us Susanne Portillo MD LAB URINE ORDERABLES Fin al Result Performing Organization Address [facility] Co de Phone Number [facility] [address] [place] [phone] * Lipid Panel with Reflex to Direct LDL (01/14/2024 9:18 AM EDT) Triglycerides 52 <150 mg/dL [facility] Comment:Desirable Triglyceri de: less than 150 mg/dLBorderline High Triglyceride 150-199 mg/dLHigh Triglyceride: 200-499 mg/dLVery High Triglyceride: greater than or equal to 5OO mg/dL Cholesterol 154 <200 mg/dL [facility] Comment:Desirable Cholestero l: less than 200 mg/dLBorderline High Cholesterol: 200-239 mg/dLHigh Cholesterol: greater than 239 mg/dL LDL Cholesterol Calculated 75 <100 mg/dL [facility] Comment:Desirable LDL: less than 100 mg/dLNear Optimal/Above Optimal LDL: 110- 129 mg/dLBorderline High LDL: 130-159 mg/dLHigh LDL: 160-189 mg/dLVery High LDL: greater than or equal to 190 mg/dL HDL Cholesterol 69 >40 mg/dL [facility] Comment:Desirable HDL: great er than 40 mg/dL Note: This HDL assay may give artificially low results in patients with liver disease. Blood 01/14/2024 9:18 AM EDT 01/14/2024 11:06 AM EDT us Susanne Portillo MD LAB BLOOD ORDERABLES Fin al Result Performing Organization Address [facility]/ZIP Co de Phone Number [facility] [address] [place] [phone] * DIGITAL BILATERAL SCREEN 1 (06/05/2019 [...] Most Recently Relevant to Health Maintenance Insurance [facility] STANDARD [place] [phone] Care Teams Geochemical Laboratory Technician Relationship Specialty Start Date End Date Susanne Portillo MD [address] [place] [address] PCP - General Family Medicine 06/02/19
--- OUTSIDE RECORDS SUMMARY | 2025-07-14 18:25 | XMS_ITS | Encounter Summary ---
Author Organization [email or web address] Address [address] [facility] 7t [place] [address] Care Team Providers Care Access Lead Name Role Phone Susanne Portillo MD Primary Care Provider + Encounter Details Date Type Department Care Team (Late st Contact Info) Description 07/13/2025 Orders Only [facility] External Provider, [facility] Social History Tobacco Use Types Packs/Day Years [...] Description 08/04/2025 11:00 AM EDT Office Visit [facility] [address] [place], [place] [phone] Can, Abril, OD [address] [place] [address] documented as of this encounter Procedures Procedure Name Priority Date/Time Associated Diagnosis Comments US ABDOMEN COMPLETE Routine 07/13/2025 8 :24 PM EDT documented in this encounter Results * US Abdomen Complete (07/13/2025 8:24 PM EDT) Anatomical Region Laterality Modality Abdomen Ultrasound 07/13/2025 8:24 PM EDT Narrative 07/13/2025 8:26 PM EDT [facility] [address] [place] [phone] Ultrasound Report Signed Patient: Clarita Forde MR #: [id number] : 1955 Acct:[id number] Age/Sex: 70 / F ADM Date: 07/13/25 Loc: HO.US Attending Dr: Edtya Rueda MD Ordering Physician: Edyta Rueda MD Date of Service: 07/13/25 Procedure(s): US abdomen complete Accession Number(s): [id number] cc: Susanne Portillo MD; Edyta Rueda MD Reason for Exam: K74.3 - Primary biliary cirrhosis CLINICAL HISTORY: K74.3 - Primary biliary cirrhosis US abdomen complete Comparison: US/ME - US ABDOMEN COMPLETE - 11/09/2024 08:13 [...] in OV> 07/13/252025 DD/ 23 TD/TT: 07/13/252023 Rn Clinical Documentation Specialist: Procedure Note Donotuseinterpreter, Image - 07/13/2025 [place] [address] Ultrasound Report Signed Patient: Clarita Forde [facility] #: [id number] : 6Acct:[id number] Age/Sex: 70 / FADM Date: 07/13/25 Loc: HO.US Attending Dr: Edyta Rueda MD Ordering Physician: Edyta Rueda MD Date of Service: 07/13/25 Procedure(s): US abdomen complete Accession Number(s): [id number] cc: Susanne Portillo MD; Edyta Rueda MD Reason for Exam: K74.3 - Primary biliary cirrhosis CLINICAL HISTORY: K74.3 - Primary biliary cirrhosis US abdomen complete Comparison: US/ME - US ABDOMEN COMPLETE - 11/09/2024 08:13 [...] in OV> 07/13/252025 DD/ 23 TD/TT: 07/13/252023 Rn Clinical Documentation Specialist: [facility] External Provider IMG US PROCEDURES Edited Result - Final documented in this encounter Visit Diagnoses Not on filedocumented in this encounter Additional Health Concerns Assessment Noted Time PHQ-9 Depression Total Score: 9 06/01/20 25 12:15 PM EDT documented as of this encounter Care Teams Access Lead Relationship Specialty Start Date End Date Susanne Portillo MD [address] [place] [phone] PCP - General Family Medicine 06/02/19 documented as of this encounter
== END 2025-07-14 18:17 | disposition home or self-care (01) ==
PROVIDERS: PCP Internal Medicine; Visit Provider Internal Medicine
DX: K74.3 Primary biliary cirrhosis (principal); R51.9 Headache, unspecified; M85.80 Other specified disorders of bone density and structure, unspecified site; Q78.9 Osteochondrodysplasia, unspecified; K75.4 Autoimmune hepatitis
CPT/HCPCS: 99214; G2211

== ENCOUNTER → 2025-07-14 15:34 | Outpatient (BNVA) | payer MEDICARE, MEDICAID, SELFPAY | PROVIDERS: PCP Internal Medicine; Visit Provider Internal Medicine | DX: K75.4 Autoimmune hepatitis (principal); K74.3 Primary biliary cirrhosis; Q78.9 Osteochondrodysplasia, unspecified; M85.80 Other specified disorders of bone density and structure, unspecified site | CPT/HCPCS: 99212 ==

== ENCOUNTER 2025-07-27 11:29 | Day surgery (SDC) | payer MEDICARE, MEDICAID, SELFPAY ==
--- OUTSIDE RECORDS SUMMARY | 2025-07-15 07:02 | XMS_ITS | Clinical Summary ---
Author Organization [employer] Address [address] [place] [address] Care Team Providers Care Security Associate Name Role Phone Susanne Portillo MD Primary [...] 25 Active ergocalciferol (Vitamin D2) 1.25 MG (07061 UT) capsule Take 1 capsule (1.25 mg) [...] sleep apnea) 04/26/2024 Overview (04/26/2024): Sleep 04/01/24 [facility] htal. Auto CPAP 8-20 cm H2O Assessment & Plan (12/08/2024 2:45 PM EST): Pt is not tolerating CPAP properly with too much pressure on her face and ? Air blowing out of the mask (air leak?). I spoke with Josefina from [facility] ([place] [facility] [phone]) who will send Resp Therapist to fu [...] exercise, life style modifications, diet, referral to auricular detoxification specialist. 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 Assessment & Plan (06/02/2025 3:18 PM EDT): She has been doing well on Imuran + ursodiol. Advised to increase lactulose and titrate up to having to loose/semi- loose BMs per day Follow-up with GI with liver ultrasound Check LFTs Advised to bring note from her hepatology in [facility], she will bring up the topic of rifaximin with them Assessment & Plan (12/08/2024 1:16 PM EST): Followed by GI. Continue Imuran + Ursodiol and avoid constipation. LFTs are normal and stable. 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 -Check fgstk 1x/ daily. Refr to auto transmission technician. -Encouraged physical activity as tolerated. -FU in 1 months. Encounters * This document contains information received from the source organization and may not represent a complete record from that organization. Date Type Department Care Team Description 07/13/2025 Orders Only [facility] External Provider, [facility] 07/09/2025 Results Follow-Up [facility] [address] [place] [phone] Susanne Portillo MD Albumin, Random Urine W/Creatinine, T3, Free, T3, Total, Additional followed-up results: 6 06/22/2025 Refill [facility] [address] [place] [address] Susanne Portillo MD Type 2 diabetes mellitus without complication, without long-term current use of insulin ([facility]) 06/01/2025 12:00 PM EDT Telemedicine [facility] [address] [place] [address] Susanne Portillo MD Type 2 diabetes mellitus without complication, without long-term current use of insulin (CMS/HCC) (Primary Dx); Moderate episode of recurrent major depressive disorder (CMS/HCC); Primary biliary cholangitis (CMS/HCC); Acquired hypothyroidism; Vitamin D deficiency 06/01/2025 Travel 05/28/2025 Telephone [facility] [address] [place] [address] Susanne Portillo MD chart prep 04/19/2025 Telephone [facility] [address] [place] [address] Susanne Portillo MD telephone call from Last [...] Description 08/04/2025 11:00 AM EDT Office Visit [facility] OPTOMETRY [address] [place] [address] Acn, Abril, OD [address] [place] [address] Health Maintenance Due Date Last Done Comments [...] complication, without long-term current use of insulin ([facility]) VITAMIN D,25-OH,TOTAL,IA Routine 06/26/2025 8:55 AM [...] complication, without long-term current use of insulin ([facility]) LIPID PANEL WITH REFLEX TO DIRECT [...] PM EDT Narrative 07/13/2025 8:26 PM EDT [address] [address] Ultrasound Report Signed Patient: Clarita Forde MR #: [id number] : 1955 Acct:[id number] Age/Sex: 70 / F ADM Date: 07/13/25 Loc: HO.US Attending Dr: Edyta Rueda MD Ordering Physician: Edyta Rueda MD Date of Service: 07/13/25 Procedure(s): US abdomen complete Accession Number(s): [id number] cc: Susanne Portillo MD; Edyta Rueda MD Reason for Exam: K74.3 - Primary biliary cirrhosis CLINICAL HISTORY: K74.3 - Primary biliary cirrhosis US abdomen complete Comparison: [place] - [place] ABDOMEN COMPLETE - 11/09/2024 08:13 [...] in OV> 07/13/252025 DD/ 23 TD/TT: 07/13/252023 Computer Programming Professor: Procedure Note Donotuseinterpreter, Image - 07/13/2025 [place] [id number] Ultrasound Report Signed Patient: Clarita Forde [facility] #: [id number] : 1955cct:[id number] Age/Sex: 70 / FADM Date: 07/13/25 Loc: HO.US Attending Dr: Edyta Rueda MD Ordering Physician: Edyta Rueda MD Date of Service: 07/13/25 Procedure(s): US abdomen complete Accession Number(s): [id number] cc: Susanne Portillo MD; Edyta Rueda MD Reason for Exam: K74.3 - Primary biliary cirrhosis CLINICAL HISTORY: K74.3 - Primary biliary cirrhosis US abdomen complete Comparison: [place] - [place] ABDOMEN COMPLETE - 11/09/2024 08:13 [...] in OV> 07/13/252025 DD/ 23 TD/TT: 07/13/252023 Computer Programming Professor: [facility] External Provider IMG US PROCEDURES Edited Result - Final * (ABNORMAL) Vitamin D, 25-Hydroxy, Total, Immunoassay (06/26/2025 8:55 AM EDT) Vitamin D 25-OH Total 16.0(L) >30 ng/mL [facility] Comment: Health Based Reference Values*< 20 ng/mL Erphtbjrs39-36 ng/mL Insufficient> 30 ng/mL Sufficient*Kaylee HILLMAN. N [...] ORDERABLES Fin al Result Performing Organization Address [facility] Co de Phone Number [facility] [address] [place] [phone] * T3, Free (06/26/2025 8:55 AM EDT) T3, Free 2.9 2.3 - 4.2 pg/mL [facility] Comment:THIS TEST WAS PERFOR MED AT:[address] [place] [address]VFSTUALKA WASHINGTON MD Blood Venous blood specimen / Unknown 06/26/2025 8:55 AM EDT 06/26/2025 8:55 AM EDT us Susanne Portillo MD LAB BLOOD ORDERABLES Fin al Result Performing Organization Address [facility] Co de Phone Number [facility] [address] [place] [phone] * T3, Total (06/26/2025 8:55 AM EDT) T3, Total 81 76 - 181 ng/dL [facility] Comment:THIS TEST WAS PERFOR MED AT:[employer] [address] [place] [address]CGALWALKA WASHINGTON MD Blood Venous blood specimen / Unknown 06/26/2025 8:55 AM EDT 06/26/2025 8:55 AM EDT Susanne Portillo MD LAB BLOOD ORDERABLES Fin al Result Performing Organization Address [facility] de Phone Number [facility] [address] [place] [phone] * TSH (06/26/2025 8:55 AM EDT) Thyroid Stimulating Hormone 1.31 0.32 - 4.0 uIU/mL [facility] Comment:TSH 3rd Generation ( [employer]) Blood Venous blood specimen / Unknown 06/26/2025 8:55 AM EDT 06/26/2025 8:55 AM EDT Susanne Portillo MD LAB BLOOD ORDERABLES Fin al Result Performing Organization Address [facility] Phone Number [facility] [address] [place] [phone] * T4, Free (06/26/2025 8:55 AM EDT) Free T4 (Free Thyroxine) 1.03 0.71 - 1.85 ng/dL [facility] Blood Venous blood specimen / Unknown 06/26/2025 8:55 AM EDT 06/26/2025 8:55 AM EDT Susanne Portillo MD LAB BLOOD ORDERABLES Fin al Result Performing Organization Address [facility] de Phone Number [facility] [address] [place] [phone] * T4 (Thyroxine), Total (06/26/2025 8:55 AM EDT) T4 Thyroxine 8.2 4.5 - 12.0 ug/dL [facility] Blood Venous blood specimen / Unknown 06/26/2025 8:55 AM EDT 06/26/2025 8:55 AM EDT us Susanne Portillo MD LAB BLOOD ORDERABLES Fin al Result Performing Organization Address [facility] Co de Phone Number [facility] [address] [place] [phone] * Hemoglobin A1c (06/26/2025 8:55 AM EDT) Hemoglobin A1c 6.0 <6.0 % [facility] Comment:Hemoglobin A1C Refer ence Range Adults: 4.8 - 6.0 % Non diabetic: < 6.0 % Goal: < 7.0 %Additional Action Suggested: > 8.0 %Note: Hemoglobin A1c results are invalid for patients with abnormal amounts of HbF. Blood transfusions may impact the HbA1c concentration in the patient sample. Estimated Average Glucose 126 mg/dL [facility] Comment:eAG = Estimated ave rage glucose which is %A1C expressed asaverage glucose, using the formula of the X5K-CfoxhqeYurxxza Glucose study (ADAG), Diabetes Care, Vol.31,#8,Jun. 2007 Blood Venous blood specimen / Unknown 06/26/2025 8:55 AM EDT 06/26/2025 8:55 AM EDT us Susanne Portillo MD LAB BLOOD ORDERABLES Fin al Result Performing Organization Address [facility] Co de Phone Number [facility] [address] [place] [phone] * (ABNORMAL) Comprehensive Metabolic Panel (06/26/2025 8:55 AM EDT) Sodium 143 135 - 145 mmol/L [facility] Potassium 4.4 3.3 - 5.1 mmol/L [facility] Chloride 112(H) 96 - 108 mmol/L [facility] Carbon Dioxide 27 22 - 29 mmol/L [facility] Anion Gap 8(L) 12 - 20 [facility] Urea Nitrogen (BUN) 16 9 - 16 mg/dL [facility] Creatinine, Serum 0.62 0.5 - 1.4 mg/dL [facility] Estimated Glomerular Filt Rate >60 [facility] Comment:Chronic Kidney Disea se: Estimated GFR < 60 mL/min/1.73f0Tkltrr Kidney Disease: Estimated GFR < 15 mL/min/1.73m2 Glucose 85 60 - 115 mg/dL [facility] Calcium 9.9 8.4 - 10.2 mg/dL [facility] Bilirubin, Total 0.6 0.0 - 1.0 mg/dL [facility] Aspartate Amino Transferase 24 5 - 31 U/L [facility] Alanine Aminotransferase 12 0 - 31 U/L [facility] Total Protein 7.0 6.5 - 8.0 g/dL [facility] Albumin Level 3.7 3.5 - 5.0 g/dL [facility] Alkaline Phosphatase 78 39 - 117 U/L [facility] Blood Venous blood specimen / Unknown 06/26/2025 8:55 AM EDT 06/26/2025 8:55 AM EDT us Susanne Portillo MD LAB BLOOD ORDERABLES Fin al Result Performing Organization Address City/State/[facility] Co de Phone Number [facility] [address] [place] [phone] * Albumin, Random Urine W/Creatinine (06/26/2025 8:50 AM EDT) Creatinine, Urine 198.72 mg/dL [facility] Microalbumin Urine 14.0 mg/L [facility] Microalbum Creatinine Ratio Ur 7.0 <30 ug/mg cr [facility] Comment:Albumin/Creatinine R atio Reference Ranges: Normal: < 30 ug/mg creatinine Microalbuminuria: 30 - 300 ug/mg creatinineClinical Albuminuria: > 300 ug/mg creatinine Urine (Urine, Random) 06/26/2025 8:50 AM EDT 06/26/2025 10:07 AM EDT us Susanne Portillo MD LAB URINE ORDERABLES Fin al Result Performing Organization Address [facility] Co de Phone Number [facility] [address] [place] [phone] * Lipid Panel with Reflex to Direct LDL (01/14/2024 9:18 AM EDT) Triglycerides 52 <150 mg/dL [facility] Comment:Desirable Triglyceri de: less than 150 mg/dLBorderline High Triglyceride 150-199 mg/dLHigh Triglyceride: 200-499 mg/dLVery High Triglyceride: greater than or equal to 5OO mg/dL Cholesterol 154 <200 mg/dL [facility] Comment:Desirable Cholestero l: less than 200 mg/dLBorderline High Cholesterol: 200-239 mg/dLHigh Cholesterol: greater than 239 mg/dL LDL Cholesterol Calculated 75 <100 mg/dL [facility] Comment:Desirable LDL: less than 100 mg/dLNear Optimal/Above Optimal LDL: 110- 129 mg/dLBorderline High LDL: 130-159 mg/dLHigh LDL: 160-189 mg/dLVery High LDL: greater than or equal to 190 mg/dL HDL Cholesterol 69 >40 mg/dL [facility] Comment:Desirable HDL: great er than 40 mg/dL Note: This HDL assay may give artificially low results in patients with liver disease. Blood 01/14/2024 9:18 AM EDT 01/14/2024 11:06 AM EDT us Susanne Portillo MD LAB BLOOD ORDERABLES Fin al Result Performing Organization Address [facility]/ZIP Co de Phone Number [facility] [address] [place] [phone] * DIGITAL BILATERAL SCREEN 1 (06/05/2019 [...] Most Recently Relevant to Health Maintenance Insurance [facility] [place] [place] [address] [place] [phone] Care Teams Security Associate Relationship Specialty Start Date End Date Susanne Portillo MD [address] [place] [address] PCP - General Family Medicine 06/02/19
--- OUTSIDE RECORDS SUMMARY | 2025-07-15 07:02 | XMS_ITS | Encounter Summary ---
Author Organization [employer] Address [address] [facility] 7t [place] [address] Care Team Providers Care Visual And Stock Associate Name Role Phone Susanne Portillo MD Primary Care Provider + Reason for Visit * Reason Comments Med Refill Encounter Details Date Type Department Care Team ([facility] st Contact Info) Description 04/09/2024 Refill [facility] [address] [place], [place] [phone] Susanne Portillo MD [address] [place], [place] [phone] Type 2 diabetes mellitus without complication, without long-term current use of insulin ([facility]) Social History [...] 08/04/2025 11:00 AM EDT Office Visit [facility] OPTOMETRY [address] [place] [address] Abril North, OD [address] [place] [address] documented as of this encounter Visit Diagnoses Diagnosis Type 2 diabetes mellitus without complication, without long-term current use of insulin ([facility]) documented in this encounter Additional Health Concerns Assessment Noted Time PHQ-9 Depression Total Score: 2 12/27/19 24 12:05 PM EST documented as of this encounter Care Teams Visual And Stock Associate Relationship Specialty Start Date End Date Susanne Portillo MD [address] [place] [address] PCP - General Family Medicine 06/02/19 documented as of this encounter
--- OUTSIDE RECORDS SUMMARY | 2025-07-15 07:02 | XMS_ITS | Encounter Summary ---
Author Organization [employer] Address [address] [facility] [address] [place] [address] Care Team Providers Care Principal Systems Architect Name Role Phone Susanne Portillo MD Primary Care Provider + Encounter Details Date Type Department Care Team (Late st Contact Info) Description 07/13/2025 Orders Only [facility] External Provider, [facility] Social History Tobacco Use Types Packs/Day [...] 08/04/2025 11:00 AM EDT Office Visit [facility] OPTOMETRY [address] [place], [place] [phone] Can, Abril, OD [address] [place] [address] documented as of this encounter Procedures Procedure Name Priority Date/Time Associated Diagnosis Comments US ABDOMEN COMPLETE Routine 07/13/2025 8 :24 PM EDT documented in this encounter Results * US Abdomen Complete (07/13/2025 8:24 PM EDT) Anatomical Region Laterality Modality Abdomen Ultrasound 07/13/2025 8:24 PM EDT Narrative 07/13/2025 8:26 PM EDT [facility] [address] [place] [id number] Ultrasound Report Signed Patient: Clarita Forde MR #: [id number] : 1955 Acct:[id number] Age/Sex: 70 / F ADM Date: 07/13/25 Loc: HO.US Attending Dr: Edyta Rueda MD Ordering Physician: Edyta Rueda MD Date of Service: 07/13/25 Procedure(s): US abdomen complete Accession Number(s): [id number] cc: Susanne Portillo MD; Edyta Rueda MD Reason for Exam: K74.3 - Primary biliary cirrhosis CLINICAL HISTORY: K74.3 - Primary biliary cirrhosis US abdomen complete Comparison: [place] - [place] ABDOMEN COMPLETE - 11/09/2024 08:13 [...] in OV> 07/13/252025 DD/ 23 TD/TT: 07/13/252023 Lead Accountant: Procedure Note Donotuseinterpreter, Image - 07/13/2025 [place] [id number] Ultrasound Report Signed Patient: Clarita Forde [facility] #: [id number] : 6Acct:[id number] Age/Sex: 70 / FADM Date: 07/13/25 Loc: HO.US Attending Dr: Edyta Rueda MD Ordering Physician: Edyta Rueda MD Date of Service: 07/13/25 Procedure(s): US abdomen complete Accession Number(s): [id number] cc: Susanne Portillo MD; Edyta Rueda MD Reason for Exam: K74.3 - Primary biliary cirrhosis CLINICAL HISTORY: K74.3 - Primary biliary cirrhosis US abdomen complete Comparison: [place] - [place] ABDOMEN COMPLETE - 11/09/2024 08:13 [...] in OV> 07/13/252025 DD/ 23 TD/TT: 07/13/252023 Lead Accountant: [facility] External Provider IMG US PROCEDURES Edited Result - Final documented in this encounter Visit Diagnoses Not on filedocumented in this encounter Additional Health Concerns Assessment Noted Time PHQ-9 Depression Total Score: 9 06/01/20 25 12:15 PM EDT documented as of this encounter Care Teams Principal Systems Architect Relationship Specialty Start Date End Date Susanne Portillo MD [address] [place] [phone] PCP - General Family Medicine 06/02/19 documented as of this encounter
--- OUTSIDE RECORDS SUMMARY | 2025-07-15 07:02 | XMS_ITS | Encounter Summary ---
Author Organization [employer] Address [address] [facility] 7t [place] [address] Care Team Providers Care Tub Attendant Name Role Phone Susanne Portillo MD Primary Care Provider + Reason for Visit * Reason Onset Date Comments Med Refill 07/21/2024 Encounter Details Date Type Department Care Team ([facility] st Contact Info) Description 07/21/2024 Refill [facility] MED[facility]INE [address] [place], [place] [phone] Susanne Portillo MD [address] [place] [address] Social History Tobacco Use Types Packs/Day Years [...] Description 08/04/2025 11:00 AM EDT Office Visit [facility] OPTOMETRY [address] [place], [place] [phone] Abril North, OD [address] [place] [address] documented as of this encounter Visit Diagnoses Not on filedocumented in this encounter Additional Health Concerns Assessment Noted Time PHQ-9 Depression Total Score: 12 024 3:45 PM EDT documented as of this encounter Care Teams Tub Attendant Relationship Specialty Start Date End Date Susanne Portillo MD [address] [place] [address] PCP - General Family Medicine 06/02/19 documented as of this encounter
--- OUTSIDE RECORDS SUMMARY | 2025-07-15 07:02 | XMS_ITS | Encounter Summary ---
Author Organization [employer] Address [address] [facility] 7t [place] [address] Care Team Providers Care Sap Project Manager Name Role Phone Susanne Portillo MD Primary Care Provider + Encounter Details Date Type Department Care Team ([facility] st Contact Info) Description 05/04/2024 Telephone [facility] MED[facility]INE [address] [place], [place] [phone] Susanne Portillo MD [address] [place], [place] [phone] Social History Tobacco Use Types Packs/Day Years [...] sleep studies done. Please call phone # [phone] for clarification. documented in this encounter Plan of Treatment Upcoming Encounters Date Type Department Care Team (Late st Contact Info) Description 08/04/2025 11:00 AM EDT Office Visit [facility] OPTOMETRY [address] [place] [address] Can, Abril, OD [address] [place] [address] documented as of this encounter Visit Diagnoses Not on filedocumented in this encounter Additional Health Concerns Assessment Noted Time PHQ-9 Depression Total Score: 2 12/27/19 24 12:05 PM EST documented as of this encounter Care Teams Sap Project Manager Relationship Specialty Start Date End Date Susanne Portillo MD [address] [place] [address] PCP - General Family Medicine 06/02/19 documented as of this encounter
--- OUTSIDE RECORDS SUMMARY | 2025-07-15 07:02 | XMS_ITS | Encounter Summary ---
Author Organization [employer] Address [address] [facility] [address]t [place] [address] Care Team Providers Care Fire Sprinkler Installer Name Role Phone Susanne Portillo MD Primary Care Provider + Reason for Visit * Reason Onset Date Comments Med Refill 11/14/2024 Encounter Details Date Type Department Care Team ([facility] st Contact Info) Description 11/14/2024 Refill [facility] MEDICINE [address] [place], [place] [phone] Susanne Portillo MD [address] [place] [address] Social History Tobacco Use Types Packs/Day Years [...] Description 08/04/2025 11:00 AM EDT Office Visit [facility] OPTOMETRY [address] [place], [place] [phone] Abril North, OD [address] [place] [address] documented as of this encounter Visit Diagnoses Not on filedocumented in this encounter Additional Health Concerns Assessment Noted Time PHQ-9 Depression Total Score: 12 024 3:45 PM EDT documented as of this encounter Care Teams Fire Sprinkler Installer Relationship Specialty Start Date End Date Susanne Portillo MD [address] [place] [address] PCP - General Family Medicine 06/02/19 documented as of this encounter
--- OUTSIDE RECORDS SUMMARY | 2025-07-15 07:02 | XMS_ITS | Encounter Summary ---
Author Organization [employer] Address [address] [facility] 7t [place] [address] Care Team Providers Care Hat Marker Name Role Phone Susanne Portillo MD Primary Care Provider + Reason for Visit * Reason Onset Date Comments Med Refill 04/09/2024 Encounter Details Date Type Department Care Team ([facility] st Contact Info) Description 04/09/2024 Telephone [facility] MEDICINE [address] [place], [place] [phone] Susanne Portillo MD [address] [place], [place] [phone] Med Refill Social History Tobacco Use Types [...] 10:57 AM EDT Medication was sent to [facility] #[id number] on 01/21/24 #12 with 1 refill. * Telephone Encounter - Verona Rodriguez - 04/09/2024 10:55 AM EDT TC from pt requesting medication refill. Medications needing refill : ergocalciferol (Vitamin D2) 1.25 MG (69821 UT) capsule To be sent to: [id number] [place] [address] [address] [facility] documented in this encounter Plan of Treatment Upcoming Encounters Date Type Department Care Team (Late st Contact Info) Description 08/04/2025 11:00 AM EDT Office Visit [facility] OPTOMETRY [address] [place], [place] [phone] Abril North, OD [address] [place] [address] documented as of this encounter Visit Diagnoses Not on filedocumented in this encounter Additional Health Concerns Assessment Noted Time PHQ-9 Depression Total Score: 2 02/23/20 24 12:05 PM EST documented as of this encounter Care Teams Hat Marker Relationship Specialty Start Date End Date Susanne Portillo MD [address] [place] [address] PCP - General Family Medicine 06/02/19 documented as of this encounter
--- OUTSIDE RECORDS SUMMARY | 2025-07-15 07:02 | XMS_ITS | Encounter Summary ---
Author Organization [employer] Address [address] [facility] [address] [place] [address] Care Team Providers Care Diamond Merchant Name Role Phone Susanne Portillo MD Primary Care Provider + Reason for Visit * Reason Comments Med Refill Encounter Details Date Type Department Care Team ([facility] st Contact Info) Description 03/29/2024 Refill [facility] [address] [place], [place] [phone] Susanne Portillo MD [address] [place], [place] [phone] Social History Tobacco Use Types Packs/Day Years [...] Description 08/04/2025 11:00 AM EDT Office Visit [facility] OPTOMETRY [address] [place] [address] Can, Abril, OD [address] [place] [address] documented as of this encounter Visit Diagnoses Not on filedocumented in this encounter Additional Health Concerns Assessment Noted Time PHQ-9 Depression Total Score: 2 12/27/19 24 12:05 PM EST documented as of this encounter Care Teams Diamond Merchant Relationship Specialty Start Date End Date Susanne Portillo MD [address] [place] [address] PCP - General Family Medicine 06/02/19 documented as of this encounter
--- OUTSIDE RECORDS SUMMARY | 2025-07-15 07:02 | XMS_ITS | Encounter Summary ---
Author Organization [employer] Address [address] [facility] 7t [place] [address] Care Team Providers Care Excel Expert Name Role Phone Susanne Portillo MD Primary Care Provider + Reason for Visit * Reason Onset Date Comments Med Refill 11/12/2024 Encounter Details Date Type Department Care Team ([facility] st Contact Info) Description 11/12/2024 Refill [facility] [address] [place], [place] [phone] Susanne Portillo MD [address] [place] [address] Primary biliary cholangitis (CMS/HCC) Social History Tobacco [...] Description 08/04/2025 11:00 AM EDT Office Visit [facility] OPTOMETRY [address] [place] [address] Abril [place], OD [address] [place] [address] documented as of this encounter Visit Diagnoses Diagnosis Primary biliary cholangitis (CMS/HCC) documented in this encounter Additional Health Concerns Assessment Noted Time PHQ-9 Depression Total Score: 12 024 3:45 PM EDT documented as of this encounter Care Teams Excel Expert Relationship Specialty Start Date End Date Susanne Portillo MD [address] [place] [address] PCP - General Family Medicine 06/02/19 documented as of this encounter
--- NOTE | 2025-07-26 09:52 | P.CONAN_ITS ---
HPI - Anesthesia Eval Consult details Narrative: 70yo F for Upper Endoscopy and Colonoscopy PMFSH Active Problems Active Problems: All Active Problems Dizziness (Acute) Headache (Acute) Osteopenia (Acute) Encounter for colorectal cancer screening (Acute) Autoimmune hepatitis (Acute) Hepatic osteodystrophy (Acute) Primary biliary cholangitis (Acute) Past Medical History Medical History (Updated 07/26/25 @ 09:57 by Padma Og NP) ISABEL (obstructive sleep apnea) Acquired hypothyroidism HLD (hyperlipidemia) Diabetes Surgical History Surgical History Hx of colonoscopy H/O section Hx of appendectomy Social History Social History Household Members Other:: sister Housing: House Alcohol intake: current Alcohol intake frequency: a few times a month Patient Tobacco Use Status: Former Tobacco user Meds Allergies Allergy/AdvReac Type Severity Reaction Status Date / Time No Known Allergies Allergy Verified 11/18/24 12:50 Home Medications ?Medication ?Instructions ?Recorded ?Confirmed ?Last Taken ?Type atorvastatin 20 mg tablet 20 mg PO DAILY 02/24/24 Unk nown History fluoxetine 20 mg capsule 20 mg PO DAILY 02/24/24 Unk nown History levothyroxine 100 mcg tablet 100 mcg PO DAILY 02/24/24 Unknown History metformin 850 mg tablet 850 mg PO 02/24/24 Unknown History blood sugar diagnostic (FreeStyle #10 ea 11/18/24 Unk nown History Lite Strips) blood-glucose meter (FreeStyle #1 ea 11/18/24 Unknown History Lite Meter kit) calcium 600 mg (as 1 tab PO DAILY 11/18/24 Unk nown History carbonate)-vitamin D3 10 mcg (400 unit) tablet lancets 28 gauge (FreeStyle #100 ea 11/18/24 Unknown History Lancets) Exam Pertinent Lab Results Pertinent Lab Results: Laboratory Tests 06/26/25 08:55 Sodium 143 Potassium 4.4 Chloride 112 H Carbon Dioxide 27 BUN 16 Creatinine 0.62 Assessment and Plan Assessment Anesthesia Assessment: Chart Reviewed
[2025-07-27 12:11] VITALS: BP 110/59; PULSE 54; RESP 14; TEMP 37; O2SAT 98; BMI 32.4
[2025-07-27] MEDS: Lactated Ringers 1,000 ML 100 ML IVCONT (12:14)
[2025-07-27 12:28] LABS: Glucose, Whole Blood 74 mg/dL (60-115)
--- NOTE | 2025-07-27 12:43 | MHC.SHP ---
Pre-Procedural Eval Section A - 24 Hr Update-Section A only Date of Service: 07/27/25 The patient is an INPATIENT: No The patient has been examined within 24 hours of the surgical procedure. The History & Physical has been completed within 30 days and I have reviewed it.: Yes Section B - Complete if H&P > 30 days Chief Complaint: screening, varices Allergies: Allergies Allergy/AdvReac Type Severity Reaction Status Date / Time No Known Allergies Allergy Verified 07/27/25 12:08 Plan Diagnosis/Plan: Unchanged I have reviewed the history and physical and performed a pertinent physical examination on my patient. No changes have occurred unless specified. Time Spent With Patient Time: Total time managing care of this patient today ____ minutes.
--- NOTE | 2025-07-27 13:19 | P.CONAN_ITS ---
[facility] Active Problems Active Problems: All Active Problems (Updated 07/26/25 @ 09:57 by Padma Og NP) Dizziness (Acute) Headache (Acute) Osteopenia (Acute) Encounter for colorectal cancer screening (Acute) Autoimmune hepatitis (Acute) Hepatic osteodystrophy (Acute) Primary biliary cholangitis (Acute) Past Medical History Medical History ISABEL (obstructive sleep apnea) Acquired hypothyroidism HLD (hyperlipidemia) Diabetes Cognitive capacity: normal Family History Family history of problems with anesthesia: No Surgical History Surgical History Hx of colonoscopy H/O section Hx of appendectomy History of Problems with Anesthesia: No Social History Social History Household Members Other:: sister Housing: House Are you a primary wound care rn to a significant other at home: No Do you presently have visiting nurse or other home services: No Alcohol intake: current Alcohol intake frequency: does not drink Patient Tobacco Use Status: Former Tobacco user Use of substances other than those prescribed or required for medical reasons: No Have you been hit, kicked, punched, or otherwise hurt by someone within the past year? If so, by whom?: No Are you DNR?: No Advance Directives: No Advance Directives Information Provided: Yes Patient : No Poor oral hygiene: Yes Meds Allergies Allergy/AdvReac Type Severity Reaction Status Date / Time No Known Allergies Allergy Verified 07/27/25 12:08 Active Medications: Current Medications Lactated Ringer's (Lr) 1,000 mls @ 100 mls/hr IVCONT .Q10H RUPERT Last Admin: 07/27/25 12:14 Dose: 100 mls/hr Home Medications ?Medication ?Instructions ?Recorded ?Confirmed ?Last Taken ?Type atorvastatin 20 mg tablet 20 mg PO DAILY 02/24/2407/06 Unknown History fluoxetine 20 mg capsule 20 mg PO DAILY 02/24/2407/06 Unknown History levothyroxine 100 mcg tablet 100 mcg PO DAILY 02/24/24 07/27/25 07/27/25 History metformin 850 mg tablet 850 mg PO 02/24/24 Unknown History blood sugar diagnostic (FreeStyle #10 ea 11/18/24 Unk nown History Lite Strips) blood-glucose meter (FreeStyle #1 11/18/24 Unknown History Lite Meter kit) calcium 600 mg (as 1 tab PO DAILY 11/18/24 Unk nown History carbonate)-vitamin D3 10 mcg (400 unit) tablet lancets 28 gauge (FreeStyle #100 ea 11/18/24 Unknown History Lancets) Exam Exam Date and Time: 07/27/25 Height,Weight and Vital Signs: Height 5 ft 6 in Weight 91 kg Last Vital Signs Temp 98.6 F 07/27/25 12:11 Pulse 54 07/27/25 12:11 Resp 14 07/27/25 12:11 BP 110/59 L 07/27/25 12:11 Pulse Ox 98 07/27/25 12:11 O2 Del Method Room Air 07/27/25 12:11 Pertinent Lab Results Pertinent Lab Results: Laboratory Tests 07/27/25 12:24 POC Glucose 74 Airway Mallampati Class: II TM Dist: >3cm Neck ROM: Full Partial: Lower Loose/Missing/Broken Teeth: No Heart: rrr Lungs: cta b Other: none Assessment and Plan Final Anesthetic Review Family History of Problems with Anesthesia: No History of Problems with Anesthesia: No NPO: No ASA Class: II Final Preanesthetic Review: No Changes in Pt Med Stat, Meds/Allgs Chart Reviewed, Consent Obtained/Reviewed and Anes Risks/Benef Reviewed Procedure Risk: Low Assessment/Block/Sedation in SS: Assess/Block/Sedation-SS Anesthetic Plan Anesthetic Plan: MAC: Disposition: Standard PACU
--- NOTE | 2025-07-27 14:11 | P.OPN-COLO_ITS ---
Colonoscopy Operative Note Operative Note Date of Service: 07/27/25 Narrative: Procedure: Upper endoscopy and colonoscopy Indication: r/o varices, screening Endoscopist: Edyta Rueda MD Anesthesia Provider: Anesthesia type: MAC Instrument: [id number] and [id number] EGD Procedure:?? The procedure, indications, preparation and potential complications were reviewed with the patient, who indicated understanding and gave written informed consent to proceed. The endoscope was introduced through the mouth, and advanced to the 2nd part of the duodenum. The mucosa was carefully examined on slow withdrawal of the endoscope. The patient tolerated the procedure well. There were no immediate complications.? EGD Findings:? * Esophagus:? Normal esophageal mucosa was noted. The Z-line was at 35 cm and irregular up to 34 cm. Cold forceps biopsies were taken from GE junction to rule out Dominguez's esophagus. A hiatal hernia was also noted with the diaphragmatic pinch at 40 cm. * Stomach:? Erythema and erosions in the antrum. Erythema in a mosaic pattern consistent with portal hypertensive gastropathy. Retroflexion was performed in the cardia that did not reveal any fundal varices. Cold forceps biopsies were taken from the stomach body and antrum. * Duodenum:? Mild erythema with erosions noted in the duodenal bulb. Remaining mucosa was normal to the extent examined. Cold forceps biopsies were taken for histology. Colonoscopy Procedure:? The patient was then turned for the colonoscopy. A digital rectal exam was performed which was abnormal for hemorrhoids.? A distal attachment cap was affixed to the tip of the scope and the colonoscope was then inserted through the anus and advanced through the colon and advanced to the cecum at 80 cm.? Appendiceal orifice and ileocecal valve were identified. Mucosa was carefully examined under high definition white light as the instrument was slowly withdrawn in a retrograde panoramic fashion. Retroflexion was performed in rectum. The procedure was not difficult. The quality of the prep was BBPS: 2+2+2 = adequate Withdrawal time 14 minutes Limitations: No limitations Findings: Mucosa: Copious opaque liquid stool was present throughout the colon that was flushed and suctioned. Underlying colon and terminal ileum mucosa was normal. Protruding lesions: * 2 sessile polyps of size 3-5 mm noted in transverse colon. Cold snare polypectomy was performed. The polyps were completely removed. 1 out of 2 polyps was retrieved. * 1 sessile polyp of size 6 mm noted in rectum. Cold snare polypectomy was performed. The polyp was completely removed and retrieved. * Large internal hemorrhoids without stigmata of recent bleeding. Excavated lesions: * Moderate diverticulosis of the left colon. Impression: 1. Irregular Z line (biopsy) 2. Hiatal hernia 3. Portal hypertensive gastropathy 4. Gastritis (biopsy) 5. Duodenitis (biopsy) 6. Normal colon mucosa 7. 3 polyps removed (2 retrieved) 8. Diverticulosis 9. Internal and external hemorrhoids Recommendations:?? * Follow-up path results * Avoid NSAIDs * Start omeprazole 20 mg once daily for 8-12 weeks * H pylori treatment of biopsies positive * Repeat EGD for variceal screening in 2-3 years * Repeat colonoscopy in 3-5 years depending on path
[2025-07-27 14:12] VITALS: BP 98/52; PULSE 59; RESP 16; TEMP 36.1; O2SAT 99
[2025-07-27 14:27] VITALS: BP 98/52; PULSE 61; RESP 16; O2SAT 97
[2025-07-27 14:41] VITALS: BP 119/58; PULSE 52; RESP 16; TEMP 36.2; O2SAT 99
== END 2025-07-27 15:26 | disposition home or self-care (01) ==
PROVIDERS: PCP Internal Medicine; Visit Provider Internal Medicine
PROC: (CPT 45385; principal; 2025-07-27 13:20)
DX: Z12.11 Encounter for screening for malignant neoplasm of colon (principal); D12.3 Benign neoplasm of transverse colon; K62.1 Rectal polyp; K57.30 Diverticulosis of large intestine without perforation or abscess without bleeding; K64.8 Other hemorrhoids; K64.4 Residual hemorrhoidal skin tags; K29.70 Gastritis, unspecified, without bleeding; K29.80 Duodenitis without bleeding; K22.89 Other specified disease of esophagus; K44.9 Diaphragmatic hernia without obstruction or gangrene; K76.6 Portal hypertension; E03.9 Hypothyroidism, unspecified; E78.5 Hyperlipidemia, unspecified; G47.33 Obstructive sleep apnea (adult) (pediatric); E11.9 Type 2 diabetes mellitus without complications; Z79.84 Long term (current) use of oral hypoglycemic drugs; Z79.899 Other long term (current) drug therapy; Z87.891 Personal history of nicotine dependence
CPT/HCPCS: 45385; 43239; 82947; 88305; 88313; 88342; J2704

== ENCOUNTER → 2025-07-27 11:29 | Outpatient (BNV) | payer MEDICARE, MEDICAID, SELFPAY | PROVIDERS: PCP Internal Medicine; Visit Provider Internal Medicine | DX: Z12.11 Encounter for screening for malignant neoplasm of colon (principal); D12.3 Benign neoplasm of transverse colon; D12.8 Benign neoplasm of rectum; K57.90 Diverticulosis of intestine, part unspecified, without perforation or abscess without bleeding; K64.8 Other hemorrhoids; K76.6 Portal hypertension; K31.89 Other diseases of stomach and duodenum; K29.70 Gastritis, unspecified, without bleeding; K29.80 Duodenitis without bleeding | CPT/HCPCS: 43239; 45385 ==

== ENCOUNTER 2025-08-11 13:03 | Outpatient (AMB) | payer MEDICARE, MEDICAID, SELFPAY ==
--- NOTE | 2025-08-11 13:05 | MHC.OFFVIS ---
Vital Signs 08/11/25 13:08 08/11/25 13:09 Weight 202 lb 13.204 oz BP 91/38 L 105/61 Intake Visit Reasons: S/P double; Dr. Rueda Intake Note: Clarita presents in the office as a follow up for her EGD and COLO. CC: She states that she is here for her EGD and COLO results. She states that after her procedures she has some pains in the RUQ and in the colon. She states that she has discomfort as well since the procedure. 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 02/24/24: Pt reports getting leg swelling around 4 years ago which led to testing that established the diagnosis of PBC. Was seeing Dr Manish Barraza at [facility]. Also reports getting a biopsy. Per PCP notes: interface hepatitis 3/4 and lobular activity 2/4. However reports progression to cirrhosis in 2021. Based on bx. Current medications: - Azathioprine 50/day - Court 300 TID - Folic acid 1mg - Lactulose 10mg once a day Last EGD in Nov 13 2023 in [facility] - report reviewed - no esophageal varices, but small fundal varices in stomach without red sonja signs. having small varices. Started on carvedilol once a day. Last US also in Nov 2023 in [facility] - no changes, repeat recommended in 6 months. 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 06/15/24: No acute issues. No change in meds. Labs reviewed. Pt aware to reach out to her PCP for endocrine referral for osteopenia. Taking Vit D supplement. 11/18/24: Here for routine follow up. Seen with in person trash man Kiet. Reports dizziness and headaches - has sensation of feeling forward. Lasts for a few seconds. Started almost a month ago and occuring may be once a week. Headache is diffuse and not assoc with vision changes or tinnitus. Has not been seen by PCP for this yet. Pt also had parathyroid testing in [facility] and PTH was high. Awaiting to see PCP for this. From liver standpoint, no abd pain, N,V. Ran out of her meds almost 4 days ago and needs refills. Requests to reduce lactulose dose as it causes significant bloating and cramping without any BMs. 07/14/25: Here for follow up. Reports did not tolerate rifaximin well as it caused abd pain. Would rather revert to lactulose. Also has been gaining weight despite following a low carb diet. PTH was high when checked back in [facility] in 2023, will order recheck. In terms of liver, has been feeling at baseline. Ultrasound from yest reviewed, no liver mass. Due for EGD/colo, will see if can get scheduled today. Current meds: - Azathioprine 50/day - Court 300 TID - Carvedilol 6.25 BID - Folic acid 1mg - Rifaximin 550 BID - Lactulose 10mg once a day EGD/colo 07/27/25 1. Irregular Z line (biopsy) 2. Hiatal hernia 3. Portal hypertensive gastropathy 4. Gastritis (biopsy) 5. Duodenitis (biopsy) 6. Normal colon mucosa 7. 3 polyps removed (2 retrieved) 8. Diverticulosis 9. Internal and external hemorrhoids A. Duodenum, biopsy: Mild chronic duodenitis with patchy foveolar metaplasia suggestive of peptic etiology. B. Stomach, antrum, biopsy: Gastric antral mucosa within normal limits; negative for Helicobacter pylori, intestinal metaplasia and dysplasia. C. Stomach, body, biopsy: Gastric body mucosa within normal limits; negative for Helicobacter pylori, intestinal metaplasia and dysplasia. D. Gastroesophageal junction, biopsy: Squamocolumnar junctional mucosa with mild chronic inflammation; negative for intestinal metaplasia and dysplasia. E. Colon, transverse, polypectomy: Early features of sessile serrated polyp/lesion. F. Rectum, polypectomy: Polypoid colonic mucosa noted; negative for a hyperplastic or neoplastic process Current meds: - Azathioprine 50/day - Court 300 TID - Carvedilol 6.25 BID - Folic acid 1mg - Lactulose 10mg once a day 08/11/25: Here for post procedure follow up. Results reviewed. Repeat colo recommended in 5 years due to SSL. Has discontinued rifaximin due to reaction. Cont on lactulose but has 1 hard BM per day. US abd from sept reviewed, no focal lesion. [facility] Medical History ISABEL (obstructive sleep apnea) Acquired hypothyroidism HLD (hyperlipidemia) Diabetes Surgical History History of esophagogastroduodenoscopy (EGD) Hx of colonoscopy H/O section Hx of appendectomy Social History Household Members Other:: sister Housing: House Are you a primary health care sanitary technician to a significant other at home: No Do you presently have visiting nurse or other home services: No Alcohol intake: current Alcohol intake frequency: does not drink Patient Tobacco Use Status: Former Tobacco user Review of Systems Const All systems reviewed & are unremarkable except as noted in HPI and below Physical Exam Exam Exam: No apparent distress Nonicteric Abdomen soft, nondistended Alert and oriented x3, normal gait Vital Signs: Last Vital Signs BP 105/61 08/11/25 13:09 Assessment & Plan Assessment & Plan (1) Osteopenia: Code(s): M85.80 - Other specified disorders of bone density and structure, unspecified site Category: Medical (2) Hepatic osteodystrophy: Code(s): Q78.9 - Osteochondrodysplasia, unspecified Category: Medical (3) Primary biliary cholangitis: Code(s): K74.3 - Primary biliary cirrhosis Category: Medical (4) Autoimmune hepatitis: Code(s): K75.4 - Autoimmune hepatitis Category: Medical (5) Personal history of colonic polyps: Code(s): Z86.0100 - Personal history of colon polyps, unspecified Category: Medical Plan 1. 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 Cont on Azathioprine [address] Pt was unable to tolerate rifaximin. Has too much bloating with lactulose, reviewed alternating lactulose and PEG. Also has cholestasis related osteopenia, PTH is pending (was noted to have high PTH on labs done in [place]) Plan: - Cont Azathioprine [address] Refilled today. - Updated MELD labs ordered - Cholestasis - due for ADEK check. - osteopenia on dexa. Endocrine follow up pending. PTH ordered at last visit - pending. - due for cholesterol check - varices: Next EGD due 07/2027. Cont coreg 6.25 BID. - HCC screening: US Abd from 07/13 reviewed. Next due in January 2026. Reminder set. - HE - has known splenorenal shunt. DC rifaximin due to intolerance. Cont lactulose BID, add PEG once daily. goal BM 2-3 per day. 2. Hx of polyps Has SSL on most recent colo. - Next colo due for 2029. Follow up 6 months Orders: Orders Complete Blood Count no Diff Today K74.3 - Primary biliary cirrhosis Comprehensive Met. Panel Today K74.3 - Primary biliary cirrhosis Prothrombin Time INR Today K74.3 - Primary biliary cirrhosis US abdomen complete 5 Months K74.3 - Primary biliary cirrhosis Medications: New magnesium oxide 400 mg PO BEDTIME 90 tabs 0RF 90 days Refilled azathioprine 50 mg PO DAILY 90 tabs 2RF 90 days carvedilol 6.25 mg PO BID 180 tabs 2RF 90 days folic acid 1 mg PO DAILY 90 tabs 2RF 90 days Discontinued rifaximin Discontinued Reason: Doctor's Order 550 mg PO BID 90 days 180 tabs 2RF Coding Level of Care Code Est Pt Level 5 (81068) Complex EM visit Add On G2211 Diagnoses Osteopenia M85.80 Hepatic osteodystrophy Q78.9 Primary biliary cholangitis K74.3 Autoimmune hepatitis K75.4 Personal history of colonic polyps Z86.0100
[2025-08-11 13:08] VITALS: BP 91/38
[2025-08-11 13:09] VITALS: BP 105/61
== END 2025-08-11 13:45 | disposition home or self-care (01) ==
LOC: HO.HGI 13:04
PROVIDERS: PCP Internal Medicine; Visit Provider Internal Medicine
DX: M85.80 Other specified disorders of bone density and structure, unspecified site (principal); Q78.9 Osteochondrodysplasia, unspecified; K74.3 Primary biliary cirrhosis; K75.4 Autoimmune hepatitis; Z86.0100 Personal history of colon polyps, unspecified
CPT/HCPCS: 99214; G2211

== ENCOUNTER 2025-08-11 13:03 | Outpatient (REF) | payer MEDICARE, MEDICAID, SELFPAY ==
[2025-08-11 14:46] LABS: Hematocrit 36.9 % (37.0-47.0); Hemoglobin 12.3 g/dl (12.0-16.0); Mean Corpuscular HGB Conc 33.3 g/dl (31.0-35.0); Mean Corpuscular Hemoglobin 33.2 pg (27.0-33.0); Mean Corpuscular Volume 99.7 fL (80.0-98.0); NRBC Abs Auto 0.000 X10*3/uL (0.0-0.012); NRBC Pct Auto 0.0 /100WBC (0.0-0.2); Platelet Count 162 X10*3/uL (160-400); Red Blood Count 3.70 X10*6/uL (4.20-5.50); White Blood Count 5.6 X10*3/uL (4.8-10.8)
[2025-08-11 14:56] LABS: INTERNATIONAL NORM RATIO 1.1 (0.9-1.1); Prothrombin Time 12.4 SEC (10.9-12.4)
[2025-08-11 15:23] LABS: Alanine Aminotransferase 13 U/L (0-31); Albumin Level 4.0 g/dL (3.5-5.0); Alkaline Phosphatase 70 U/L (39-117); Anion Gap 9 (12-20); Aspartate Amino Transferase 25 U/L (5-31); Blood Urea Nitrogen 19 mg/dL (9-16); Calcium 10.3 mg/dL (8.4-10.2); Carbon Dioxide 28 mmol/L (22-29); Chloride 111 mmol/L (96-108); Estimated Glomerular Filt Rate > 60; Potassium 4.5 mmol/L (3.3-5.1); Sodium 143 mmol/L (135-145); Total Protein 6.9 g/dL (6.5-8.0)
== END 2025-08-11 13:04 | disposition home or self-care (01) ==
LOC: HO.LAB 13:03
PROVIDERS: PCP Internal Medicine; Visit Provider Internal Medicine
DX: M85.80 Other specified disorders of bone density and structure, unspecified site (principal); Q78.9 Osteochondrodysplasia, unspecified; K74.3 Primary biliary cirrhosis; K75.4 Autoimmune hepatitis; Z98.890 Other specified postprocedural states; Z86.0100 Personal history of colon polyps, unspecified; Z79.899 Other long term (current) drug therapy
CPT/HCPCS: 36415; 80053; 85027; 85610; 99212

== ENCOUNTER 2025-09-16 09:43 | Outpatient (REF) | payer MEDICARE, MEDICAID, SELFPAY ==
[2025-09-16 11:08] LABS: INTERNATIONAL NORM RATIO 1.0 (0.9-1.1); Prothrombin Time 11.7 SEC (11.2-13.5)
--- OUTSIDE RECORDS SUMMARY | 2025-09-16 11:19 | XMS_ITS | Encounter Summary ---
Author Organization [employer] Address [address] [facility] 7t [place] [address] Care Team Providers Care Nylon Mender Name Role Phone Susanne Portillo MD Primary Care Provider + Encounter Details Date Type Department Care Team ([facility] st Contact Info) Description 05/04/2024 Telephone [facility] [address] [place], [place] [phone] Susanne Portillo MD [address] [place], [place] [phone] Social History Tobacco Use Types Packs/Day Years [...] sleep studies done. Please call phone # [phone] for clarification. documented in this encounter Plan of Treatment Upcoming Encounters Date Type Department Care Team (Late st Contact Info) Description 11/10/2025 11:15 AM EST Office Visit [facility] [address] [place] [phone] Susanne Portillo MD [address] [place] [address] documented as of this encounter Visit Diagnoses Not on filedocumented in this encounter Additional Health Concerns Assessment Noted Time PHQ-9 Depression Total Score: 2 12/27/19 24 12:05 PM EST documented as of this encounter Care Teams Nylon Mender Relationship Specialty Start Date End Date Susanne Portillo MD [address] [place] [phone] PCP - General Family Medicine 06/02/19 documented as of this encounter
--- OUTSIDE RECORDS SUMMARY | 2025-09-16 11:19 | XMS_ITS | Encounter Summary ---
Author Organization [employer] Address [address] [facility] 7t [place] [address] Care Team Providers Care Pulpwood Contractor Name Role Phone Susanne Portillo MD Primary Care Provider + Encounter Details Date Type Department Care Team (Late st Contact Info) Description 09/16/2025 Orders Only GENERIC EXTERNAL DATA DEPARTMENT Provider, [...] Description 11/10/2025 11:15 AM EST Office Visit [facility] [address] [place], [place] [phone] Susanne Portillo MD [address] [place], [place] [phone] documented as of this encounter Procedures Procedure Name Priority Date/Time Associated Diagnosis Comments PROTHROMBIN TIME-INR Routine 09/16/2025 9:57 AM EST documented in this encounter Results * Prothrombin Time-INR (09/16/2025 9:57 AM EST) Prothrombin Time 11.7 11.2 - 13.5 SEC [facility] INTERNATIONAL NORM RATIO 1.0 0.9 - 1.1 [facility] Comment:INTERNATIONAL NORMAL IZED RATIO (INR) REFERENCE RANGES Reference RangeFor patients not on anticoagulant therapy: 0.9 - 1.1INR ranges for oral anticoagulanttherapy:For prevention and treatment of venous thrombosis and pulmonary embolism: 2.0 - 3.0For acute myocardial infarction with aspirin therapy: 2.0 - 3.0For acute myocardial infarction without aspirin therapy: 3.0 - 4.0For patients with mechanical prosthetic heart valves: 2.5 - 3.5 09/16/2025 9:57 AM EST 09/16/2025 9:57 AM EST us Generic External Data Provider LAB BLOOD ORDERAB LES Final Result [facility] [address] [place] [address] [phone] documented in this encounter Visit Diagnoses Not on filedocumented in this encounter Additional Health Concerns Assessment Noted Time PHQ-9 Depression Total Score: 9 06/01/20 25 12:15 PM EDT documented as of this encounter Care Teams Pulpwood Contractor Relationship Specialty Start Date End Date Susanne Portillo MD [address] [place] [address] PCP - General Family Medicine 06/02/19 documented as of this encounter
--- OUTSIDE RECORDS SUMMARY | 2025-09-16 11:19 | XMS_ITS | Encounter Summary ---
Author Organization [email or web address] Address [address] [facility] [address] [place] [address] Care Team Providers Care Signal Person Name Role Phone Susanne Portillo MD Primary Care Provider + Reason for Visit * Reason Onset Date Comments Med Refill 07/21/2024 Encounter Details Date Type Department Care Team ([facility] st Contact Info) Description 07/21/2024 Refill [facility] [address] [place], [place] [phone] Susanne Portillo MD [address] [place] [address] Social History Tobacco Use Types Packs/Day Years [...] Description 11/10/2025 11:15 AM EST Office Visit [facility] [address] [place] [phone] Susanne Portillo MD [address] [place] [address] documented as of this encounter Visit Diagnoses Not on filedocumented in this encounter Additional Health Concerns Assessment Noted Time PHQ-9 Depression Total Score: 12 024 3:45 PM EDT documented as of this encounter Care Teams Signal Person Relationship Specialty Start Date End Date Susanne Portillo MD [address] [place] [phone] PCP - General Family Medicine 06/02/19 documented as of this encounter
--- OUTSIDE RECORDS SUMMARY | 2025-09-16 11:19 | XMS_ITS | Encounter Summary ---
Author Organization [employer] Address [address] [place] [address] Care Team Providers Care Cfo Controller Name Role Phone Susanne Portillo MD Primary Care Provider + Reason for Visit * Reason Comments Med Refill Encounter Details Date Type Department Care Team ([facility] st Contact Info) Description 04/09/2024 Refill [facility] [address] [place], [place] [phone] Susanne Portillo MD [address], [place] [phone] Type 2 diabetes mellitus without complication, without long-term current use of insulin ([facility]) Social History Tobacco Use Types Packs/Day [...] Description 11/10/2025 11:15 AM EST Office Visit [facility] [address] [place] [address] Susanne Portillo MD [address] [place] [address] documented as of this encounter Visit Diagnoses Diagnosis Type 2 diabetes mellitus without complication, without long-term current use of insulin (HCC) documented in this encounter Additional Health Concerns Assessment Noted Time PHQ-9 Depression Total Score: 2 12/27/19 24 12:05 PM EST documented as of this encounter Care Teams Cfo Controller Relationship Specialty Start Date End Date Susanne Portillo MD [address] [place] [address] PCP - General Family Medicine 06/02/19 documented as of this encounter
--- OUTSIDE RECORDS SUMMARY | 2025-09-16 11:19 | XMS_ITS | Clinical Summary ---
Author Organization [employer] Address [address] [facility] [address] [place] [address] Care Team Providers Care Credit And Collection Manager Name Role Phone Susanne Portillo MD Primary Care Provider + Allergies No known active allergies Medications * This document contains information received from the source organization and may not represent a complete record from that organization. carvedilol (Coreg) 6.25 MG tablet Take 1 tablet (6.25 mg) by mouth with breakfast and with evening meal. 180 tablet 3 4 Active glucose blood test strip Use as instructed 100 each 12 4 Active azaTHIOprine (Imuran) 50 MG tabletIndicatio ns:Primary biliary cholangitis (CMS/HCC) (HCC) TAKE 1 TABLET BY MOUTH EVERY DAY 90 tablet 4 Active rifAXIMin (Xifaxan) 550 MG tablet Take 550 mg by mouth 2 times daily. Active ursodiol (Actigall) 300 MG capsuleIndicati ons:Primary biliary cholangitis (CMS/HCC) (HCC) Take 1 capsule (300 mg) by mouth 3 times daily. 270 capsule 3 5 12/27/19 26 Active levothyroxine (Synthroid, Levoxyl) 100 MCG tablet TAKE 1 TABLET(100 MCG) BY MOUTH BEFORE BREAKFAST 90 tablet 1 5 Active folic acid (Folvite) 1 MG tablet Take 1 tablet (1,000 mcg) by mouth Once per day. 90 tablet 3 5 12/27/19 26 Active FLUoxetine (PROzac) 20 MG capsule TAKE 1 CAPSULE(20 MG) BY MOUTH IN THE MORNING 90 capsule 3 5 Active atorvastatin (Lipitor) 20 MG tablet TAKE 1 TABLET(20 MG) BY MOUTH IN THE MORNING 90 tablet 3 5 Active lactulose (Chronulac) 10 GM/15ML solution Take 22.5 mL (15 g) by mouth 4 times daily. 8100 mL 3 5 06/02/20 26 Active metFORMIN (Glucophage) 850 MG tabletIndicatio ns:Type 2 diabetes mellitus without complication, without long-term current use of insulin (HCC) TAKE 1 TABLET BY MOUTH TWICE DAILY WITH THE MORNING AND EVENING MEAL 180 tablet 3 5 Active ergocalciferol (Vitamin D2) 1.25 MG (52131 UT) capsule Take 1 capsule (1.25 mg) by mouth 1 (one) time per week. 12 capsule 1 5 01/06/20 26 Active Calcium Carb-Cholecalci ferol 600-10 MG-MCG tablet Take 1 tablet by mouth Once per day. Active cyclobenzaprine (Fexmid) 7.5 MG tablet Take 7.5 mg by mouth. 5 Active magnesium oxide (Mag-Ox) 400 (240 Mg) MG tablet Take 400 mg by mouth at bedtime. 5 Active omeprazole (PriLOSEC) [address] capsule 5 Active FreeStyle lancets USE ONE DIRECTED TO CHECK BLOOD SUGAR IN THE MORNING 4 08/18/20 25 Discontin ued(Thera py completed ) Blood Glucose Monitoring Suppl (FreeStyle Lite) w/Device kit 1 each Once per day. 1 kit 5 08/18/20 25 Discontin ued(Thera py completed ) Active Problems Problem Noted Date Diagnosed Date Duodenitis determined by biopsy 08/05/2025 Gastroesophageal reflux dise ase with esophagitis without hemorrhage 08/05/2025 Sessile serrated polyp of colon 08/05/2025 Primary osteoarthritis of both knees 12/08/2024 Assessment [...] sleep apnea) 04/26/2024 Overview (04/26/2024): Sleep 04/01/24 [facility] htal. Auto CPAP 8-20 cm H2O Assessment & Plan (12/08/2024 2:45 PM EST): Pt is not tolerating CPAP properly with too much pressure on her face and ? Air blowing out of the mask (air leak?). I spoke with Josefina from [facility] ([place] [facility] [phone]) who will send Resp Therapist to fu [...] exercise, life style modifications, diet, referral to invoicing specialist. 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 Assessment & Plan (06/02/2025 3:18 PM EDT): She has been doing well on Imuran + ursodiol. Advised to increase lactulose and titrate up to having to loose/semi- loose BMs per day Follow-up with GI with liver ultrasound Check LFTs Advised to bring note from her hepatology in [facility], she will bring up the topic of rifaximin with them Assessment & Plan (12/08/2024 1:16 PM EST): Followed by GI. Continue Imuran + Ursodiol and avoid constipation. LFTs are normal and stable. Assessment & Plan (12/27/2023 3:20 PM EST): Last LFTs nml, Has liver fibrosis G2/4 (Bx on 2019, [facility]) -cont ursodiol TID + lactulose [...] meals. -Check fgstk 1x/ daily. Refr to blunger machine operator. -Encouraged physical activity as tolerated. -FU in 1 months. Encounters * This document contains information received from the source organization and may not represent a complete record from that organization. Date Type Department Care Team Description 09/16/2025 Orders Only GENERIC EXTERNAL DATA DEPARTMENT Provider, Generic External Data 09/08/2025 Outside Procedure [facility] [address] [place] [address] Merritt Northn, OD Presbyopia (Primary Dx) 09/07/2025 1:30 PM EST Office Visit [facility] [address] [place] [address] Abril North, OD Hyperopia of right eye (Primary Dx) 08/16/2025 Telephone [facility] [address] [place] [address] Susanne Portillo MD Results 08/11/2025 Orders Only GENERIC EXTERNAL DATA DEPARTMENT Provider, Generic External Data 08/05/2025 Results Follow-Up [facility] [address] [place] [address] Susanne Portillo MD Glucose, Whole Blood, Hematoxylin and Eosin Stain 08/04/2025 11:00 AM EDT Office Visit [facility] [address] [place] [address] Abril North, OD Diabetes type 2, no ocular involvement (HCC) (Primary Dx); 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; Epiretinal membrane (ERM) of right eye; Retinal drusen of both eyes; Nevus of conjunctiva, left; Age-related nuclear cataract of right eye; Pseudophakia of left eye; Presbyopia 08/04/2025 Travel 07/27/2025 Orders Only GENERIC EXTERNAL DATA DEPARTMENT Provider, Generic External Data 07/13/2025 Orders Only [facility] External Provider, [facility] 07/09/2025 Results Follow-Up [address] [address] Susanne Portillo MD Albumin, Random Urine W/Creatinine, T3, Free, T3, Total, Additional followed-up results: 6 06/22/2025 Refill [facility] [address] [place], [place] [phone] Susanne Portillo MD Type 2 diabetes mellitus without complication, without long-term current use of insulin ([facility]) from Last 3 Months Immunizations Immunization Administration [...] Description 11/10/2025 11:15 AM EST Office Visit [facility] [address] [place] [address] Susanne Portillo MD [address] [place] [address] Health Maintenance Due Date Last Done Comments [...] Years (1 of 2 - PCV) 1975 RSV Patients and Patients Aged 60 years or older (1 - Risk 50-74 years 1-dose series) 2006 Hepatitis B Vaccines (1 of 3 - Risk 3-dose series) 2016 Mammogram 06/05/2021 06/05/2019 Lipid Panel 01/13/2025 01/14/2024, 04/11/2022 Zoster Vaccines (2 of 2) 10/25/2025 08/30/2025 Depression Monitoring 12/02/2025 06/01/2025, 025 Diabetes: Hemoglobin A1C 12/27/2025 025, 12/08/2024, 12/27/2023, Additional history exists Alcohol/Substance Use Screening 06/01/2026 06/01/2025 SDOH Screening 06/01/2026 06/01/2025 Diabetes: Urine Protein Screening 06/26/2026 06/26/2025, 01/14/2024 Tobacco Screening 08/18/2026 08/18/2025 Eye Exam 08/04/2027 08/04/2025, 1011/2024, 08/04/2025, Additional history exists Influenza Vaccine Completed 06/28/2025, 12/03/2019 HIB Vaccines Aged Out No longer eligi [...] PROTHROMBIN TIME-INR Routine 09/16/2025 9:57 AM EST COMPREHENSIVE METABOLIC PANEL Routine 08/11/2025 2:11 PM EDT PROTHROMBIN TIME-INR Routine 08/11/2025 2:11 PM EDT CBC Routine 08/11/2025 2:11 PM EDT AMB REFERRAL TO PHYSICAL THERAPY Routine 07/30/2025 Primary osteoarthritis of both knees HEMATOXYLIN AND EOSIN STAIN Routine 07/27/2025 1:36 PM EDT GLUCOSE, WHOLE BLOOD Routine 07/27/2025 12:24 PM EDT US ABDOMEN COMPLETE Routine 07/13/2025 8 :24 PM EDT HEMOGLOBIN A1C Routine 06/26/2025 8:55 AM EDT Type 2 diabetes mellitus without complication, without long-term current use of insulin ([facility]) VITAMIN D,25-OH,TOTAL,IA Routine 06/26/2025 8:55 AM EDT Acquired hypothyroidism Vitamin D deficiency COMPREHENSIVE METABOLIC PANEL Routine 06/26/2025 8:55 AM EDT Type 2 diabetes mellitus without complication, without long-term current use of insulin ([facility]) Acquired hypothyroidism T4 (THYROXINE), TOTAL Routine 06/26/2025 [...] use of insulin ([facility]) LIPID PANEL WITH REFLEX TO DIRECT LDL Routine 01/14/2024 9:18 AM EDT Moderate mixed hyperlipidemia not requiring statin therapy BI MAMMOGRAM SCREENING BILATERAL Routine 06/05/2019 8:24 AM EDT from Last 3 Months or Most Recently Relevant to Health Maintenance Results * Prothrombin Time-INR (09/16/2025 9:57 AM EST) Only the most recent of2 resultswithin the time period is included. Prothrombin Time 11.7 11.2 - 13.5 SEC [facility] INTERNATIONAL NORM RATIO 1.0 0.9 - 1.1 [facility] Comment:INTERNATIONAL NORMAL IZED RATIO (INR) [...] Provider LAB BLOOD ORDERAB LES Final Result [facility] [address] [place] [phone] * (ABNORMAL) CBC (08/11/2025 2:11 PM EDT) White Blood Count 5.6 4.8 - 10.8 X10*3/uL [facility] Red Blood Count 3.70(L) 4.20 - 5.50 X10*6/uL [facility] Hemoglobin 12.3 12.0 - 16.0 g/dl [facility] Hematocrit 36.9(L) 37.0 - 47.0 % [facility] Mean Corpuscular Volume 99.7(H) 80.0 - 98.0 fL [facility] Mean Corpuscular Hemoglobin 33.2(H) 27.0 - 33.0 pg [facility] Mean Corpuscular HGB Conc 33.3 31.0 - 35.0 g/dl [facility] Red Cell Distribution Width 14.9 11.0 - 16.0 % [facility] Platelet Count 162 160 - 400 X10*3/uL [facility] Mean Platelet Volume 10.0 9.4 - 12.3 fL [facility] NRBC Pct Auto 0.0 0.0 - 0.2 /100WBC [facility] NRBC Abs Auto 0.000 0.0 - 0.012 X10*3/uL [facility] 08/11/2025 2:11 PM EDT 08/11/2025 2:11 PM EDT us Generic External Data Provider LAB BLOOD ORDERAB LES Final Result Performing Organization Address City/[facility]/ZIP Co de Phone Number [facility] [address] [place] [address] [phone] * (ABNORMAL) Comprehensive Metabolic Panel (08/11/2025 2:11 PM EDT) Only the most recent of2 resultswithin the time period is included. Sodium 143 135 - 145 mmol/L [facility] Potassium 4.5 3.3 - 5.1 mmol/L [facility] Chloride 111(H) 96 - 108 mmol/L [facility] Carbon Dioxide 28 22 - 29 mmol/L [facility] Anion Gap 9(L) 12 - 20 [facility] Urea Nitrogen (BUN) 19(H) 9 - 16 mg/dL [facility] Creatinine, Serum 0.59 0.5 - 1.4 mg/dL [facility] Estimated Glomerular Filt Rate >60 [facility] Comment:Chronic Kidney Disea se: Estimated GFR < 60 mL/min/1.06t3Ezycyz Kidney Disease: Estimated GFR < 15 mL/min/1.73m2 Glucose 86 60 - 115 mg/dL [facility] Calcium 10.3(H) 8.4 - 10.2 mg/dL [facility] Bilirubin, Total 0.5 0.0 - 1.0 mg/dL [facility] Aspartate Amino Transferase 25 5 - 31 U/L [facility] Alanine Aminotransferase 13 0 - 31 U/L [facility] Total Protein 6.9 6.5 - 8.0 g/dL [facility] Albumin Level 4.0 3.5 - 5.0 g/dL [facility] Alkaline Phosphatase 70 39 - 117 U/L [facility] 08/11/2025 2:11 PM EDT 08/11/2025 2:11 PM EDT Generic External Data Provider LAB BLOOD ORDERAB LES Final Result Performing Organization Address City/[facility]/ZIP Co de Phone Number [facility] [address] [place] [address] [phone] * Referral to Physical Therapy (07/30/2025) us Susanne Portillo MD OUTPATIENT REFERRAL ORDAhsan BERKOWITZ Final Result * Hematoxylin and Eosin Stain (07/27/2025 1:36 PM EDT) 07/27/2025 1:36 PM EDT 07/28/2025 8:28 AM EDT Narrative [facility] - 07/30/2025 11:57 AM EDT ----- ------- Name: Clarita Forde Age/Sex: 70/F : 1955 Unit#: [id number] Attend Dr: Edyta Rueda MD Re07/27/25 Status: [facility] Disch: ----- ------- SPEC : [id number] RECD: 07/28/25 STATUS: MARIA G INGRAM NUM: [id number] ZUNILDA: 07/27/25-[address] [facility] [address]: Edyta Rueda MD ENTERED: 07/28/25 SP TYPE: Surgical OTHR DR: Susanne Portillo MD ORDERED: HE Stain/18, Gross Micro L4/6, IHC/2, Special st. 2/4, H. pylori/2, AB/PAS/4 Diagnosis A. Duodenum, biopsy: Mild chronic duodenitis with patchy foveolar metaplasia suggestive of peptic etiology. B. Stomach, antrum, biopsy: Gastric antral mucosa within normal limits; negative for Helicobacter pylori, intestinal metaplasia and dysplasia. C. Stomach, body, biopsy: Gastric body mucosa within normal limits; negative for Helicobacter pylori, intestinal metaplasia and dysplasia. D. Gastroesophageal junction, biopsy: Squamocolumnar junctional mucosa with mild chronic inflammation; negative for intestinal metaplasia and dysplasia. E. Colon, transverse, polypectomy: Early features of sessile serrated polyp/lesion. F. Rectum, polypectomy: Polypoid colonic mucosa noted; negative for a hyperplastic or neoplastic process. Clinical History Pre-Op Dx: Screening, varices Post-Op Dx: Upper: gastritis, duodenitis, hiatal hernia, portal hypersensitive gastropathy Lower: Diverticulosis, colon polyps Microscopic Description A-F. Microscopic sections examined. Foveolar metaplasia is seen in A and no metaplastic changes are seen in B-D, supported by AB/PAS stains; no Helicobacter organisms are seen, supported by H. pylori immunostain (B-C). Material Received A. Duodenum bxs B. Gastric antrum bxs C. Gastric body bxs D. G.E junction bxs E. Transverse colon polyp F. Rectal polyp CONTINUED ON NEXT PAGE ----- ------- Name: Clarita Forde Age/Sex: 70/F : 1955 Unit#: [id number] Attend Dr: Edyta Rueda MD Re07/27/25 Status: [facility] Disch: ----- ------- SPEC : [id number] RECD: 07/28/25 STATUS: MARIA G INGRAM NUM: [id number] ZUNILDA: 07/27/251336 [facility] DR: Edyta Rueda MD ENTERED: 07/28/25 SP TYPE: Surgical OTHR DR: Susanne Portillo MD ORDERED: HE Stain/18, Gross Micro L4/6, IHC/2, Special st. 2/4, H. pylori/2, AB/PAS/4 Gross Description A. Received in formalin are 3 rangel 2-3 mm soft tissue fragments, totally submitted in A1. B. Received in formalin are 4 rangel 2-3 mm soft tissue fragments, totally submitted in B1. C. Received in formalin are 2 rangel 3 mm soft tissue fragments, totally submitted in C1. D. Received in formalin are 2 rangel 2 mm soft tissue fragments, totally submitted in D1. E. Received in formalin is 1 rangel 4 mm soft tissue fragment, totally submitted in E1. F. Received in formalin is 1 rangel 5 mm soft tissue fragment, totally submitted in F1. (RJ D) Special stains ordered and performed: AB/PAS on A-D; immunostain for H pylori on B-C. IHC S/NG Disclaimer NOTE: Unless otherwise stated, all tissue is formalin-fixed and paraffin-embedded. Some or all of the immunohistochemical tests reported herein may have been developed and their performance characteristics determined by [facility]. They have not been cleared or approved by the U.S. Food and Drug Administration (FDA). However, the FDA has determined that such clearance or approval is not necessary. This laboratory is certified under the Clinical Laboratory Improvement Amendments of 1988 (CLIA) as qualified to perform high complexity clinical laboratory testing. Copies To: Susanne Portillo MD [address] [address] Edyta Rueda MD [facility] [address] [place] [phone] [email or web address] ----- ------- Signed (signature on file) Emiliana Bynum MD 07/30/25 1157 ----- ------- END OF REPORT Generic External Data Provider LAB BLOOD ORDERAB LES Final Result Performing Organization Address [facility] Co de Phone Number [facility] [address] [place] [address] [phone] * Glucose, Whole Blood (07/27/2025 12:24 PM EDT) Pathologist [facility] Glucose, Whole Blood 74 60 - 115 mg/dL [facility] Comment:METER #: [id number] 07/27/2025 12:2 4 PM EDT 07/27/2025 12:27 PM EDT Generic External Data Provider LAB BLOOD ORDERAB LES Final Result Performing Organization Address [facility] Co de Phone Number [facility] [address] [place] [phone] [phone] * US Abdomen Complete (07/13/2025 8:24 PM EDT) Anatomical Region Laterality Modality Abdomen Ultrasound 07/13/2025 8:24 PM EDT Narrative 07/13/2025 8:26 PM EDT [address] [address] Ultrasound Report Signed Patient: Clarita Forde MR #: [id number] : 1955 Acct:[id number] Age/Sex: 70 / F ADM Date: 07/13/25 Loc: HO.US Attending Dr: Edyta Rueda MD Ordering Physician: Edyta Rueda MD Date of Service: 07/13/25 Procedure(s): US abdomen complete Accession Number(s): [id number] cc: Susanne Portillo MD; Edyta Rueda MD Reason for Exam: K74.3 - Primary biliary cirrhosis CLINICAL HISTORY: K74.3 - Primary biliary cirrhosis US abdomen complete Comparison: US/NM - US ABDOMEN COMPLETE - 11/09/2024 08:13 [...] in OV> 07/13/252025 DD/ 23 TD/TT: 07/13/252023 Water Pumper: Procedure Note Donotuseinterpreter, Image - 07/13/[address] [address] Ultrasound Report Signed Patient: Clarita Forde MMR #: [id number] : 1955cct:[id number] Age/Sex: 70 / FADM Date: 07/13/25 Loc: HO.US Attending Dr: Edyta Rueda MD Ordering Physician: Edyta Rueda MD Date of Service: 07/13/25 Procedure(s): US abdomen complete Accession Number(s): [id number] cc: Susanne Portillo MD; Edyta Rueda MD Reason for Exam: K74.3 - Primary biliary cirrhosis CLINICAL HISTORY: K74.3 - Primary biliary cirrhosis US abdomen complete Comparison: US/NM - US ABDOMEN COMPLETE - 11/09/2024 08:13 [...] in OV> 07/13/252025 DD/ 23 TD/TT: 07/13/252023 Water Pumper: us [facility] External Provider IMG US PROCEDURES Edited Result - Final * (ABNORMAL) Vitamin D, 25-Hydroxy, Total, Immunoassay (06/26/2025 8:55 AM EDT) Vitamin D 25-OH Total 16.0(L) >30 ng/mL [facility] Comment: Health Based Reference Values*< 20 ng/mL Mtwnreipd72-05 ng/mL Insufficient> 30 ng/mL Sufficient*Kaylee HILLMAN. N [...] ORDERABLES Fin al Result Performing Organization Address City/[facility]/ZIP Co de Phone Number [facility] [address] [place] [phone] * T3, Free (06/26/2025 8:55 AM EDT) Pathologist [facility] T3, Free 2.9 2.3 - 4.2 pg/mL [facility] Comment:THIS TEST WAS PERFOR MED AT:[employer] [address] [phone] WASHINGTON MD Blood Venous blood specimen / Unknown 06/26/2025 8:55 AM EDT 06/26/2025 8:55 AM EDT Susanne Portillo MD LAB BLOOD ORDERABLES Fin al Result Performing Organization Address City/[facility]/ZIP Co de Phone Number [facility] [address] [place] [phone] * T3, Total (06/26/2025 8:55 AM EDT) T3, Total 81 76 - 181 ng/dL [facility] Comment:THIS TEST WAS PERFOR MED AT:[facility] [place] [phone] WASHINGTON MD Blood Venous blood specimen / Unknown 06/26/2025 8:55 AM EDT 06/26/2025 8:55 AM EDT us Susanne Portillo MD LAB BLOOD ORDERABLES Fin al Result Performing Organization Address City/[facility]/ZIP Co de Phone Number [facility] [address] [place] [phone] * TSH (06/26/2025 8:55 AM EDT) Thyroid Stimulating Hormone 1.31 0.32 - 4.0 uIU/mL [facility] Comment:TSH 3rd Generation ( [facility]) Blood Venous blood specimen / Unknown 06/26/2025 8:55 AM EDT 06/26/2025 8:55 AM EDT us Susanne Portillo MD LAB BLOOD ORDERABLES Fin al Result Performing Organization Address [facility] de Phone Number [facility] [address] [place] [phone] * T4, Free (06/26/2025 8:55 AM EDT) Free T4 (Free Thyroxine) 1.03 0.71 - 1.85 ng/dL [facility] Blood Venous blood specimen / Unknown 06/26/2025 8:55 AM EDT 06/26/2025 8:55 AM EDT us Susanne Portillo MD LAB BLOOD ORDERABLES Fin al Result Performing Organization Address [facility] Co de Phone Number [facility] [address] [place] [phone] * T4 (Thyroxine), Total (06/26/2025 8:55 AM EDT) T4 Thyroxine 8.2 4.5 - 12.0 ug/dL [facility] Blood Venous blood specimen / Unknown 06/26/2025 8:55 AM EDT 06/26/2025 8:55 AM EDT Susanne Portillo MD LAB BLOOD ORDERABLES Fin al Result Performing Organization Address City/[facility]/ZIP Co de Phone Number [facility] [address] [place] [phone] * Hemoglobin A1c (06/26/2025 8:55 AM EDT) Hemoglobin A1c 6.0 <6.0 % [facility] Comment:Hemoglobin A1C Refer ence Range Adults: 4.8 - 6.0 % Non diabetic: < 6.0 % Goal: < 7.0 %Additional Action Suggested: > 8.0 %Note: Hemoglobin A1c results are invalid for patients with abnormal amounts of HbF. Blood transfusions may impact the HbA1c concentration in the patient sample. Estimated Average Glucose 126 mg/dL [facility] Comment:eAG = Estimated ave rage glucose which is %A1C expressed asaverage glucose, using the formula of the [id number]-PntozacJtncnft Glucose study (ADAG), Diabetes Care, Vol.31,#8,Jun. 2007 Blood Venous blood specimen / Unknown 06/26/2025 8:55 AM EDT 06/26/2025 8:55 AM EDT us Susanne Portillo MD LAB BLOOD ORDERABLES Fin al Result Performing Organization Address City/[facility]/ZIP Co de Phone Number [facility] [address] [place] [phone] * Albumin, Random Urine W/Creatinine (06/26/2025 8:50 AM EDT) Creatinine, Urine 198.72 mg/dL [facility] Microalbumin Urine 14.0 mg/L [facility] Microalbum Creatinine Ratio Ur 7.0 <30 ug/mg cr [facility] Comment:Albumin/Creatinine R atio Reference Ranges: Normal: < 30 ug/mg creatinine Microalbuminuria: 30 - 300 ug/mg creatinineClinical Albuminuria: > 300 ug/mg creatinine Urine (Urine, Random) 06/26/2025 8:50 AM EDT 06/26/2025 10:07 AM EDT us Susanne Portillo MD LAB URINE ORDERABLES Fin al Result Performing Organization Address City/[facility]/ZIP Co de Phone Number [facility] [address] [place] [address] [phone] * Lipid Panel with Reflex to Direct LDL (01/14/2024 9:18 AM EDT) Triglycerides 52 <150 mg/dL [facility] Comment:Desirable Triglyceri de: less than 150 mg/dLBorderline High Triglyceride 150-199 mg/dLHigh Triglyceride: 200-499 mg/dLVery High Triglyceride: greater than or equal to 5OO mg/dL Cholesterol 154 <200 mg/dL [facility] Comment:Desirable Cholestero l: less than 200 mg/dLBorderline High Cholesterol: 200-239 mg/dLHigh Cholesterol: greater than 239 mg/dL LDL Cholesterol Calculated 75 <100 mg/dL [facility] Comment:Desirable LDL: less than 100 mg/dLNear Optimal/Above Optimal LDL: 110- 129 mg/dLBorderline High LDL: 130-159 mg/dLHigh LDL: 160-189 mg/dLVery High LDL: greater than or equal to 190 mg/dL HDL Cholesterol 69 >40 mg/dL [facility] Comment:Desirable HDL: great er than 40 mg/dL Note: This HDL assay may give artificially low results in patients with liver disease. Blood 01/14/2024 9:18 AM EDT 01/14/2024 11:06 AM EDT us Susanne Portillo MD LAB BLOOD ORDERABLES Fin al Result [facility] [address] [place] [phone] * DIGITAL BILATERAL SCREEN 1 (06/05/2019 [...] Most Recently Relevant to Health Maintenance Insurance [facility] STANDARD MEDICARE Care Teams Credit And Collection Manager Relationship Specialty Start Date End Date Susanne Portillo MD [address] [place] [phone] PCP - General Family Medicine 06/02/19
--- OUTSIDE RECORDS SUMMARY | 2025-09-16 11:19 | XMS_ITS | Encounter Summary ---
Author Organization [employer] Address [address] [facility] 7t [place] [address] Care Team Providers Care Blanket Cutter Hand Name Role Phone Susanne Portillo MD Primary Care Provider + Reason for Visit * Reason Comments Med Refill Encounter Details Date Type Department Care Team ([facility] st Contact Info) Description 03/29/2024 Refill [facility] MEDICINE [address] [place], [place] [phone] Susanne Portillo MD [address] [place], [place] [phone] Social History Tobacco Use Types Packs/Day Years [...] Description 11/10/2025 11:15 AM EST Office Visit [facility] MEDICINE [address] [place] [phone] Susanne Portillo MD [address] [place] [phone] documented as of this encounter Visit Diagnoses Not on filedocumented in this encounter Additional Health Concerns Assessment Noted Time PHQ-9 Depression Total Score: 2 12/27/19 24 12:05 PM EST documented as of this encounter Care Teams Blanket Cutter Hand Relationship Specialty Start Date End Date Susanne Portillo MD [address] [place] [phone] PCP - General Family Medicine 06/02/19 documented as of this encounter
--- OUTSIDE RECORDS SUMMARY | 2025-09-16 11:19 | XMS_ITS | Encounter Summary ---
Author Organization [employer] Address [address] [facility] 7t [place] [address] Care Team Providers Care Addiction Specialist Name Role Phone Susanne Portillo MD Primary Care Provider + Reason for Visit * Reason Onset Date Comments Med Refill 04/09/2024 Encounter Details Date Type Department Care Team ([facility] st Contact Info) Description 04/09/2024 Telephone [facility] MEDICINE [address] [place], [place] [phone] Susanne Portillo MD [address] [place], [place] [phone] Med Refill Social History Tobacco Use Types [...] 10:57 AM EDT Medication was sent to [facility] #[id number] on 01/21/24 #12 with 1 refill. * Telephone Encounter - Verona Rodriguez - 04/09/2024 10:55 AM EDT TC from pt requesting medication refill. Medications needing refill : ergocalciferol (Vitamin D2) 1.25 MG (45735 UT) capsule To be sent to: [facility] #[id number] [place] [id number] [address] documented in this encounter Plan of Treatment Upcoming Encounters Date Type Department Care Team (Late st Contact Info) Description 11/10/2025 11:15 AM EST Office Visit [facility] MEDICINE [address] [place] [address] Susanne Portillo MD [address] [place], [place] [phone] documented as of this encounter Visit Diagnoses Not on filedocumented in this encounter Additional Health Concerns Assessment Noted Time PHQ-9 Depression Total Score: 2 12/27/19 24 12:05 PM EST documented as of this encounter Care Teams Addiction Specialist Relationship Specialty Start Date End Date Susanne Portillo MD [address] [place] [phone] PCP - General Family Medicine 06/02/19 documented as of this encounter
--- OUTSIDE RECORDS SUMMARY | 2025-09-16 11:20 | XMS_ITS | Encounter Summary ---
Author Organization [employer] Address [address] [facility] 7t [place] [address] Care Team Providers Care Supervisor Packing Name Role Phone Susanne Portillo MD Primary Care Provider + Reason for Visit * Reason Onset Date Comments Med Refill 11/12/2024 Encounter Details Date Type Department Care Team ([facility] st Contact Info) Description 11/12/[address] [facility] MEDICINE [address] [place], [place] [phone] Susanne Portillo MD [address] [place] [address] Primary biliary cholangitis (CMS/HCC) Social History Tobacco [...] Description 11/10/2025 11:15 AM EST Office Visit [facility] MEDICINE [address] [place] [address] Susanne Portillo MD [address] [place] [phone] documented as of this encounter Visit Diagnoses Diagnosis Primary biliary cholangitis (CMS/HCC) (HCC) documented in this encounter Additional Health Concerns Assessment Noted Time PHQ-9 Depression Total Score: 12 024 3:45 PM EDT documented as of this encounter Care Teams Supervisor Packing Relationship Specialty Start Date End Date Susanne Portillo MD [address] [place] [phone] PCP - General Family Medicine 06/02/19 documented as of this encounter
--- OUTSIDE RECORDS SUMMARY | 2025-09-16 11:20 | XMS_ITS | Encounter Summary ---
Author Organization [employer] Address [address] [facility] 7t [place] [address] Care Team Providers Care Bi Manager Name Role Phone Susanne Portillo MD Primary Care Provider + Reason for Visit * Reason Onset Date Comments Med Refill 11/14/2024 Encounter Details Date Type Department Care Team ([facility] st Contact Info) Description 11/14/2024 Refill [facility] MEDICINE [address] [place], [place] [phone] Susanne Portillo MD [address] [place] [phone] Social History Tobacco Use Types Packs/Day Years [...] Description 11/10/2025 11:15 AM EST Office Visit [facility] MEDICINE [address] [place] [phone] Susanne Portillo MD [address] [place] [address] documented as of this encounter Visit Diagnoses Not on filedocumented in this encounter Additional Health Concerns Assessment Noted Time PHQ-9 Depression Total Score: 12 024 3:45 PM EDT documented as of this encounter Care Teams Bi Manager Relationship Specialty Start Date End Date Susanne Portillo MD [address] [place] [phone] PCP - General Family Medicine 06/02/19 documented as of this encounter
[2025-09-16 11:37] LABS: Calcium 10.1 mg/dL (8.4-10.2); Cholesterol 146 mg/dL (<200); HDL Cholesterol 69 mg/dL (>40); Triglycerides 43 mg/dL (<150)
[2025-09-16 11:38] LABS: Parathyroid Hormone Intact 138.6 pg/mL (8.7-77.1)
[2025-09-17 17:13] LABS: Calcium, Ionized 5.6 mg/dL (4.7-5.5)
[2025-09-20 15:33] LABS: VITAMIN D (1,25 OH) D3 10 pg/mL; Vit D (1,25-Dihydroxy) Total 34 pg/mL (18-72); Vitamin D (1,25 OH) D2 24 pg/mL
== END 2025-09-16 09:44 | disposition home or self-care (01) ==
LOC: HO.LAB 09:43
PROVIDERS: PCP Internal Medicine; Visit Provider Internal Medicine
DX: K74.3 Primary biliary cirrhosis (principal); M85.80 Other specified disorders of bone density and structure, unspecified site; E83.52 Hypercalcemia; Z13.6 Encounter for screening for cardiovascular disorders
CPT/HCPCS: 36415; 80061; 82310; 82330; 82652; 83970; 84100; 84446; 84590; 85610